=== PATIENT | male | born 1970 | race Two or more races ===

== ENCOUNTER 2020-06-12 08:25 | Outpatient (REF) | payer OTHER, SELFPAY ==
[2020-06-12 10:07] LABS: MANUAL DIFF FLAG NO
[2020-06-12 10:20] LABS: Basophils Percent Auto 0.3 % (0-2); Eosinophils Absolute Auto 0.2 X10*3/uL (0.0-0.4); Eosinophils Percent Auto 1.5 % (0-4); Hematocrit 44.4 % (42-52); Hemoglobin 14.5 g/dl (14.0-18.0); Imm Gran Abs Auto 0.04 X10*3/uL (0.00-0.03); Imm Gran Pct Auto 0.4 % (0.0-0.4); Lymphocytes Absolute Auto 2.4 X10*3/uL (1.2-4.9); Lymphocytes Percent Auto 23.9 % (20-40); Mean Corpuscular HGB Conc 32.7 g/dl (31.0-36.0); Mean Corpuscular Hemoglobin 30.5 pg (27.0-33.0); Mean Corpuscular Volume 93.3 fL (80-98); Mean Platelet Volume 11.4 fL (9.4-12.4); Monocytes Absolute Auto 0.6 X10*3/uL (0.1-1.2); Monocytes Percent Auto 5.9 % (2-11); Neutrophils Absolute Auto 6.7 X10*3/uL (2.0-8.3); Platelet Count 247 X10*3/uL (160-400); Red Blood Count 4.76 X10*6/uL (4.60-5.80); Red Cell Distribution Width 14.6 % (11.0-16.0); White Blood Count 9.9 X10*3/uL (4.8-10.8)
[2020-06-12 10:24] LABS: Estimated Average Glucose 120 mg/dL; Hemoglobin A1c % 5.8 %
[2020-06-12 10:47] LABS: Glucose Urine UA NEG (NEG); Leukocyte Esterase Urine NEG (NEG); Nitrite Urine NEG (NEG); Specific Gravity - Urine >= 1.030 (1.005-1.025); Urine Blood NEG (NEG); Urine Ketones NEG (NEG); Urine Protein NEG (NEG-TRACE)
[2020-06-12 10:49] LABS: Appearance Urine HAZY; Color Urine YELLOW
[2020-06-12 10:49] LABS: Alanine Aminotransferase 32 U/L (0-40); Albumin Level 4.1 g/dL (3.5-5.0); Alkaline Phosphatase 74 U/L (39-117); Anion Gap 14 (12-20); Aspartate Amino Transferase 28 U/L (5-37); Bilirubin Total 0.9 mg/dL (0.0-1.0); Blood Urea Nitrogen 11 mg/dL (9-16); Calcium 9.5 mg/dL (8.4-10.2); Carbon Dioxide 28 mmol/L (22-29); Chloride 105 mmol/L (96-108); Cholesterol 156 mg/dL; Estimated Glomerular Filt Rate > 60; Glucose Fasting 105 mg/dL (60-99); HDL Cholesterol 42 mg/dL; LDL Cholesterol Calculated 89 mg/dl; Potassium 4.4 mmol/L (3.3-5.1); Sodium 143 mmol/L (135-145); Total Protein 7.2 g/dL (6.5-8.0); Triglycerides 126 mg/dL
[2020-06-12 11:12] LABS: Free T4 (Free Thyroxine) 0.92 ng/dL (0.71-1.85); Thyroid Stimulating Hormone 3.27 uIU/mL (0.32-4.0); Vitamin D 25-OH Total 15.2 ng/mL (>30)
== END 2020-06-12 08:26 | disposition home or self-care (01) ==
LOC: HO.LAB 08:25
PROVIDERS: PCP Internal Medicine; Visit Provider Internal Medicine
DX: I10 Essential (primary) hypertension (principal); K21.9 Gastro-esophageal reflux disease without esophagitis; E66.01 Morbid (severe) obesity due to excess calories; Z68.41 Body mass index [BMI] 40.0-44.9, adult; R73.01 Impaired fasting glucose; E78.00 Pure hypercholesterolemia, unspecified; R79.89 Other specified abnormal findings of blood chemistry; E55.9 Vitamin D deficiency, unspecified
CPT/HCPCS: 36415; 80053; 80061; 81003; 82306; 83036; 84439; 84443; 85025

== ENCOUNTER 2020-09-05 06:09 | Emergency (ER) | payer OTHER, SELFPAY ==
--- NOTE | ~2020-09-05 | CT_ITS ---
EXAMINATION: CT HEAD WITHOUT CONTRAST CLINICAL INFORMATION: Dizziness COMPARISON: None TECHNIQUE: Contiguous axial imaging was performed from the skull base to vertex without intravenous administration of contrast. This CT examination was performed using dose optimization techniques as appropriate, variously including the following: *Automated exposure control *Adjustment of mA and/or kV according to patient size (this includes techniques or standardized protocols for targeted exams where dose is matched to indication/reason for exam; i.e. extremities or head) *Use of iterative reconstruction technique DLP: 880 mGy-cm FINDINGS: There is no evidence of acute intracranial hemorrhage or territorial infarction. No abnormal mass effect or midline shift is seen. Wan to white matter differentiation is well preserved. No extra-axial fluid collections are identified. The ventricles are normal in size. There is no abnormal attenuation within the brain parenchyma. The osseous structures and soft tissues are normal. The mastoid air cells and visualized portions of the paranasal sinuses are well aerated. CT/CT head/brain wo con IMPRESSION: No acute intracranial process seen.
--- NOTE | ~2020-09-05 | XR_ITS ---
EXAMINATION: XR CHEST CLINICAL INFORMATION: Dizziness. COMPARISON: 11/14/2012 TECHNIQUE: Frontal view of the chest was obtained. FINDINGS: Normal symmetric lung volumes. No parenchymal consolidation. No pleural effusion. No pneumothorax. Cardiomediastinal silhouette and pulmonary vascularity are within normal limits. Aorta is tortuous. No acute osseous abnormalities. XR/XR chest 1V IMPRESSION: No acute findings
[2020-09-05 06:13] VITALS: BP 209/130; BP 224/136; PULSE 70; PULSE 75; RESP 17; TEMP 36.6; O2SAT 97; O2SAT 99; BMI 43.5
--- NOTE | 2020-09-05 06:18 | ECG_ITS ---
Test Reason : HYPERTENSION Blood Pressure : / mmHG Vent. Rate : 069 BPM Atrial Rate : 069 BPM P-R Int : 154 ms QRS Dur : 104 ms QT Int : 438 ms P-R-T Axes : 035 -37 132 degrees QTc Int : 469 ms Normal sinus rhythm with sinus arrhythmia Left axis deviation Moderate voltage criteria for LVH, may be normal variant T wave abnormality, consider lateral ischemia Abnormal ECG No previous ECGs available Referred By: Danelle Palencia Electronically Signed By:MIRNA SR
[2020-09-05 06:39] LABS: MANUAL DIFF FLAG NO
[2020-09-05 06:42] LABS: Basophils Percent Auto 0.2 % (0-2); Eosinophils Absolute Auto 0.1 X10*3/uL (0.0-0.4); Eosinophils Percent Auto 0.9 % (0-4); Hematocrit 43.1 % (42-52); Hemoglobin 14.8 g/dl (14.0-18.0); Imm Gran Abs Auto 0.04 X10*3/uL (0.00-0.03); Imm Gran Pct Auto 0.4 % (0.0-0.4); Lymphocytes Absolute Auto 2.2 X10*3/uL (1.2-4.9); Lymphocytes Percent Auto 21.9 % (20-40); Mean Corpuscular HGB Conc 34.3 g/dl (31.0-36.0); Mean Corpuscular Hemoglobin 31.3 pg (27.0-33.0); Mean Corpuscular Volume 91.1 fL (80-98); Mean Platelet Volume 11.2 fL (9.4-12.4); Monocytes Absolute Auto 0.5 X10*3/uL (0.1-1.2); Monocytes Percent Auto 5.1 % (2-11); Neutrophils Absolute Auto 7.2 X10*3/uL (2.0-8.3); Neutrophils Percent Auto 71.5 % (45-73); Platelet Count 245 X10*3/uL (160-400); Red Blood Count 4.73 X10*6/uL (4.60-5.80); Red Cell Distribution Width 13.8 % (11.0-16.0); White Blood Count 10.1 X10*3/uL (4.8-10.8)
--- NOTE | 2020-09-05 06:47 | ED_ITS ---
HPI - General Adult General Chief complaint: General Medical Stated complaint: hypertension Time Seen by Provider: 09/05/20 06:17 Source: patient and EMS Mode of arrival: EMS History of Present Illness HPI narrative: This is a 49 years old male with history of hypertension woke up this morning complaining of dizziness denies any vomiting 88 hours of nausea and the dizziness is described as a spinning denies any chest pain, shortness of b reath, fever she has other systemic symptoms Onset (ago): hour(s) (1) Radiation: non-radiation Severity: moderate Severity scale (1-10): 5 Quality: constant Relieving factors: none Exacerbating factors: none Associated symptoms: denies other symptoms Related Data Previous Rx's Medication Instructions Recorded valsartan 320 1 tab PO DAILY #30 tab 12/13/19 mg-hydrochlorothiazide 12.5 mg tablet fluticasone propionate 50 1 spray INTRANASAL DAILY #16 ml 07/24/20 mcg/actuation nasal spray,suspension meclizine 25 mg tablet 25 mg PO TID PRN #15 tab 09/05/20 Allergies Allergy/AdvReac Type Severity Reaction Status Date / Time No Known Allergies Allergy Verified 01/23/20 10:40 Review of Systems Review of Systems: Yes all other systems are reviewed and are negative Constitutional: Constitutional: Reports no additional constitutional complaints Cardiovascular: Cardiovascular: Reports no additional cardiovascular complaints Respiratory: Respiratory: Reports no additional respiratory complaints PMFSH Past Medical History Medical History Allergic rhinitis Anxiety Attention deficit hyperactivity disorder (ADHD) Benign essential hypertension Depression Elevated LFTs Elevated TSH GERD without esophagitis Impaired fasting glucose Insomnia Morbid obesity with BMI of 40.0-44.9, adult Pure hypercholesterolemia Vitamin D deficiency Surgical History No pertinent past surgical history Family History Family History Father Hypertension CVD (cardiovascular disease) Mother Diabetes Brother No problems noted. Social History Social History Advance Directives: No Physical Exam Vital Signs: Vital Signs: Last Vital Signs Temp 97.9 F 09/05/20 06:13 Pulse 70 09/05/20 06:13 Resp 17 07/30/21 06:13 BP 178/97 H 09/05/20 11:58 Pulse Ox 97 09/05/20 06:13 Body Mass Index 43.5 Const: Other: He appears well no distress no toxic General: cooperative Nutritional Appearance: well nourished HENMT: Other: Examination of the eyes shows pupils reactive symmetrical no sked deviationdeviation Head: Yes normal to inspection Ears: hearing grossly normal bilaterally General nose exam: Normal external nose present Face and sinus: Yes normal facial exam Mouth: Normal oral and palatal mucosa present Teeth and gingiva: dentition normal Throat: Yes posterior oropharynx normal Eyes: Visual Aviles: normal visual aviles by confrontation Alignment and Position: alignment normal Eyelids: Yes eyelids normal Conjunctivae: conjunctivae normal Corneas: corneas normal Pupils: Equal, round and reactive pupils present EOM: EOMs intact bilaterally Neck: Neck: Yes normal visual inspection and Yes full ROM Thyroid: Thyroid normal Lymphatic: no lymphadenopathy noted Chest: Chest palpation & inspection: normal inspection of the chest and normal palpation of entire chest wall Resp: Effort & Inspection: normal respiratory effort and able to speak in complete sentences Auscultation: clear to auscultation bilaterally Cardio: Jugular venous distension: no JVD Palpation: normal PMI Rate: regular rate Rhythm: regular rhythm GI: Inspection: Yes normal to inspection Palpation (GI): Soft to palpation, not firm, nontender and no guarding Neuro: Cranial nerves: Yes Equal, round and reactive pupils present Course Reevaluation(s) Reevaluation #1: PATIENT IS FEELING MUCH BETTER HE WAS ABLE TO AMBULATE WITHOUT ATAXIA HIS DIZZINESS IS BETTER HIS WORKUP WAS ESSENTIALLY NEGATIVE INCLUDING HIS CT ELECTROCARDIOGRAM A LABS IS BLOOD PRESSURE IS MUCH BETTER AT THIS TIME WELL I THINK WE CAN GO HOME A E PATIENT THE FAMILY VERY COMFORTABLE WITH THE PLAN HE WILL FOLLOW-UP WITH HIS PRIMARY CARE PHYSICIAN Medical Decision Making Lab Data Result diagrams: 09/05/20 06:31 09/05/20 06:31 Labs: Lab Results 09/05/20 09/05/20 09/05/20 Range/Units 06:31 06:31 06:31 WBC 10.1 (4.8-10.8) X10*3/uL RBC 4.73 (4.60-5.80) X10*6/uL Hgb 14.8 (14.0-18.0) g/dl Hct 43.1 (42-52) % MCV 91.1 (80-98) fL MCH 31.3 (27.0-33.0) pg MCHC 34.3 (31.0-36.0) g/dl RDW 13.8 (11.0-16.0) % Plt Count 245 (160-400) X10*3/uL MPV 11.2 (9.4-12.4) fL Immature Gran % (Auto) 0.4 (0.0-0.4) % Neut % (Auto) 71.5 (45-73) % Lymph % (Auto) 21.9 (20-40) % Morehouse % (Auto) 5.1 (2-11) % Eos % (Auto) 0.9 (0-4) % Baso % (Auto) 0.2 (0-2) % Lymph # (Auto) 2.2 (1.2-4.9) X10*3/uL Morehouse # (Auto) 0.5 (0.1-1.2) X10*3/uL Eos # (Auto) 0.1 (0.0-0.4) X10*3/uL Baso # (Auto) 0.0 (0.0-0.2) X10*3/uL Abs Immat Gran (auto) 0.04 H (0.00-0.03) X10*3/uL Absolute Neuts (auto) 7.2 (2.0-8.3) X10*3/uL Absolute Nucleated RBC 0.000 (0.0-0.012) X10*3/uL Nucleated RBC % (auto) 0.0 (0.0-0.2) /100WBC PT 12.8 (9.9-13.0) SEC INR 1.1 (0.9-1.1) Sodium 141 (135-145) mmol/L Potassium 3.7 (3.3-5.1) mmol/L Chloride 109 H (96-108) mmol/L Carbon Dioxide 22 (22-29) mmol/L Anion Gap 14 (12-20) BUN 11 (9-16) mg/dL Creatinine 1.15 (0.5-1.4) mg/dL Estim Creat Clear Calc 94.8 Estimated GFR > 60 Random Glucose 179 H (60-115) mg/dL Calcium 9.0 (8.4-10.2) mg/dL Magnesium 1.9 (1.6-2.6) mg/dL Total Bilirubin 0.6 (0.0-1.0) mg/dL AST 25 (5-37) U/L ALT 32 (0-40) U/L Alkaline Phosphatase 70 (39-117) U/L Troponin I High Sens (<3.5-35.0) ng/L Total Protein 7.3 (6.5-8.0) g/dL Albumin 3.9 (3.5-5.0) g/dL Lipase 18 (8-78) U/L Ethyl Alcohol mg/dL 09/05/20 09/05/20 Range/Units 06:31 06:31 WBC (4.8-10.8) X10*3/uL RBC (4.60-5.80) X10*6/uL Hgb (14.0-18.0) g/dl Hct (42-52) % MCV (80-98) fL MCH (27.0-33.0) pg MCHC (31.0-36.0) g/dl RDW (11.0-16.0) % Plt Count (160-400) X10*3/uL MPV (9.4-12.4) fL Immature Gran % (Auto) (0.0-0.4) % Neut % (Auto) (45-73) % Lymph % (Auto) (20-40) % Morehouse % (Auto) (2-11) % Eos % (Auto) (0-4) % Baso % (Auto) (0-2) % Lymph # (Auto) (1.2-4.9) X10*3/uL Morehouse # (Auto) (0.1-1.2) X10*3/uL Eos # (Auto) (0.0-0.4) X10*3/uL Baso # (Auto) (0.0-0.2) X10*3/uL Abs Immat Gran (auto) (0.00-0.03) X10*3/uL Absolute Neuts (auto) (2.0-8.3) X10*3/uL Absolute Nucleated RBC (0.0-0.012) X10*3/uL Nucleated RBC % (auto) (0.0-0.2) /100WBC PT (9.9-13.0) SEC INR (0.9-1.1) Sodium (135-145) mmol/L Potassium (3.3-5.1) mmol/L Chloride (96-108) mmol/L Carbon Dioxide (22-29) mmol/L Anion Gap (12-20) BUN (9-16) mg/dL Creatinine (0.5-1.4) mg/dL Estim Creat Clear Calc Estimated GFR Random Glucose (60-115) mg/dL Calcium (8.4-10.2) mg/dL Magnesium (1.6-2.6) mg/dL Total Bilirubin (0.0-1.0) mg/dL AST (5-37) U/L ALT (0-40) U/L Alkaline Phosphatase (39-117) U/L Troponin I High Sens 4.9 (<3.5-35.0) ng/L Total Protein (6.5-8.0) g/dL Albumin (3.5-5.0) g/dL Lipase (8-78) U/L Ethyl Alcohol < 10 mg/dL Imaging Data CT scan - head: Radiologist's impression: None TECHNIQUE: Contiguous axial imaging was performed from the skull base to vertex without intravenous administration of contrast. This CT examination was performed using dose optimization techniques as appropriate, variously including the following: *Automated exposure control *Adjustment of mA and/or kV according to patient size (this includes techniques or standardized protocols for targeted exams where dose is matched to indication/reason for exam; i.e. extremities or head) *Use of iterative reconstruction technique DLP: 880 mGy-cm FINDINGS: There is no evidence of acute intracranial hemorrhage or territorial infarction. No abnormal mass effect or midline shift is seen. Wan to white matter differentiation is well preserved. No extra-axial fluid collections are identified. The ventricles are normal in size. There is no abnormal attenuation within the brain parenchyma. The osseous structures and soft tissues are normal. The mastoid air cells and visualized portions of the paranasal sinuses are well aerated. ? ECG Data Pacemaker model: Normal sinus rhythm rate is 69, LVH Discharge Plan Discharge Clinical Impression: Dizziness Patient Disposition: Home, Self-Care Instructions: Dizziness (ED) Prescriptions: New meclizine 25 mg tablet 25 mg PO TID PRN (Reason: dizziness) Qty: 15 RF: 0 No Action valsartan-hydrochlorothiazide 320-12.5 mg tablet 1 tab PO DAILY Qty: 30 RF: 12 fluticasone propionate 50 mcg/actuation spray,suspension 1 spray intranasal DAILY Qty: 16 RF: 3 Interventions: ED Discharge Assessment Last Done: 09/05/20 12:05 Discharge Date/Time: 09/05/20 12:07
[2020-09-05 06:59] LABS: INTERNATIONAL NORM RATIO 1.1 (0.9-1.1); Prothrombin Time 12.8 SEC (9.9-13.0)
[2020-09-05 07:00] LABS: Ethanol < 10 mg/dL
[2020-09-05 07:04] LABS: Alanine Aminotransferase 32 U/L (0-40); Albumin Level 3.9 g/dL (3.5-5.0); Alkaline Phosphatase 70 U/L (39-117); Anion Gap 14 (12-20); Aspartate Amino Transferase 25 U/L (5-37); Bilirubin Total 0.6 mg/dL (0.0-1.0); Blood Urea Nitrogen 11 mg/dL (9-16); Carbon Dioxide 22 mmol/L (22-29); Chloride 109 mmol/L (96-108); Creatinine Clr Calc Pharmacy 94.8; Estimated Glomerular Filt Rate > 60; Glucose Random 179 mg/dL (60-115); Lipase 18 U/L (8-78); Magnesium 1.9 mg/dL (1.6-2.6); Potassium 3.7 mmol/L (3.3-5.1); Sodium 141 mmol/L (135-145); Total Protein 7.3 g/dL (6.5-8.0)
[2020-09-05 07:07] LABS: Troponin-I High Sensitivity 4.9 ng/L (<3.5-35.0)
--- NOTE | 2020-09-05 07:38 | PC.NURSE ---
report taken from kosta rn pt here for s/s of htn, sts feeling much better at this time. blood pressures appear much lower than on first arrival. pt sts non compliance w htn meds of late. awaiting ct scan results. wctm.
[2020-09-05] MEDS: LORazepam 1 MG TABLET PO (08:00)
[2020-09-05] MEDS: Meclizine HCl 25 MG TABLET PO (11:24)
[2020-09-05 11:58] VITALS: BP 178/97
== END 2020-09-05 12:07 | disposition home or self-care (01) ==
PROVIDERS: Student in an Organized Health Care Education/Training Program; Emergency Provider Emergency Medicine; PCP Internal Medicine
DX: R42 Dizziness and giddiness (principal); I10 Essential (primary) hypertension; E66.01 Morbid (severe) obesity due to excess calories; Z68.41 Body mass index [BMI] 40.0-44.9, adult; Z79.899 Other long term (current) drug therapy
CPT/HCPCS: 36415; 70450; 71045; 80053; 82077; 83690; 83735; 84484; 85025; 85610; 93005; 99283; 99284

== ENCOUNTER 2021-02-04 08:45 | Outpatient (REF) | payer OTHER, SELFPAY ==
[2021-02-04 09:06] LABS: MANUAL DIFF FLAG NO
[2021-02-04 09:14] LABS: Basophils Percent Auto 0.2 % (0-2); Eosinophils Absolute Auto 0.1 X10*3/uL (0.0-0.4); Eosinophils Percent Auto 1.2 % (0-4); Hematocrit 44.1 % (42.0-52.0); Hemoglobin 14.8 g/dl (14.0-18.0); Imm Gran Abs Auto 0.01 X10*3/uL (0.00-0.03); Imm Gran Pct Auto 0.1 % (0.0-0.4); Lymphocytes Absolute Auto 2.7 X10*3/uL (1.2-4.9); Mean Corpuscular HGB Conc 33.6 g/dl (31.0-36.0); Mean Corpuscular Hemoglobin 31.4 pg (27.0-33.0); Mean Corpuscular Volume 93.6 fL (80.0-98.0); Mean Platelet Volume 10.8 fL (9.4-12.4); Monocytes Absolute Auto 0.6 X10*3/uL (0.1-1.2); Monocytes Percent Auto 6.7 % (2-11); Neutrophils Absolute Auto 5.9 x10*3/uL (2.0-8.3); Neutrophils Percent Auto 62.8 % (45-73); Platelet Count 252 X10*3/uL (160-400); Red Blood Count 4.71 X10*6/uL (4.60-5.80); Red Cell Distribution Width 14.3 % (11.0-16.0); White Blood Count 9.4 X10*3/uL (4.8-10.8)
[2021-02-04 09:25] LABS: Estimated Average Glucose 123 mg/dL; Hemoglobin A1c % 5.9 %
[2021-02-04 09:43] LABS: Alanine Aminotransferase 40 U/L (0-40); Alkaline Phosphatase 75 U/L (39-117); Anion Gap 9 (12-20); Aspartate Amino Transferase 30 U/L (5-37); Bilirubin Total 0.8 mg/dL (0.0-1.0); Blood Urea Nitrogen 12 mg/dL (9-16); Calcium 9.9 mg/dL (8.4-10.2); Carbon Dioxide 32 mmol/L (22-29); Chloride 105 mmol/L (96-108); Cholesterol 131 mg/dL; Estimated Glomerular Filt Rate > 60; Glucose Fasting 115 mg/dL (60-99); HDL Cholesterol 35 mg/dL; LDL Cholesterol Calculated 75 mg/dl; Potassium 4.3 mmol/L (3.3-5.1); Sodium 142 mmol/L (135-145); Total Protein 7.6 g/dL (6.5-8.0); Triglycerides 108 mg/dL
[2021-02-04 09:58] LABS: TSH reflex Free T4 4.67 uIU/mL (0.32-4.0); Vitamin D 25-OH Total 28.9 ng/mL (>30)
[2021-02-04 10:32] LABS: Free T4 (Free Thyroxine) 0.95 ng/dL (0.71-1.85)
[2021-02-04 10:57] LABS: Appearance Urine CLEAR; Color Urine YELLOW; Glucose Urine UA NEG (NEG); Leukocyte Esterase Urine NEG (NEG); Nitrite Urine NEG (NEG); PH 5.5 (5.0-8.0); Specific Gravity - Urine >= 1.030 (1.005-1.025); Urine Blood NEG (NEG); Urine Ketones NEG (NEG); Urine Protein NEG (NEG-TRACE)
== END 2021-02-04 08:46 | disposition home or self-care (01) ==
LOC: HO.LAB 08:45
PROVIDERS: PCP Internal Medicine; Visit Provider Internal Medicine
DX: E78.00 Pure hypercholesterolemia, unspecified (principal); R79.89 Other specified abnormal findings of blood chemistry; R73.01 Impaired fasting glucose; I10 Essential (primary) hypertension; E55.9 Vitamin D deficiency, unspecified
CPT/HCPCS: 36415; 80053; 80061; 81003; 82306; 83036; 84439; 84443; 85025

== ENCOUNTER 2021-05-19 10:13 | Outpatient (REF) | payer OTHER, SELFPAY ==
[2021-05-19 10:34] LABS: MANUAL DIFF FLAG NO
[2021-05-19 11:52] LABS: Appearance Urine CLEAR; Color Urine YELLOW; Glucose Urine UA NEG (NEG); Leukocyte Esterase Urine NEG (NEG); Nitrite Urine NEG (NEG); PH 5.5 (5.0-8.0); Specific Gravity - Urine >= 1.030 (1.005-1.025); Urine Blood NEG (NEG); Urine Ketones NEG (NEG); Urine Protein NEG (NEG-TRACE)
[2021-05-19 11:55] LABS: Basophils Percent Auto 0.2 % (0-2); Eosinophils Absolute Auto 0.1 X10*3/uL (0.0-0.4); Eosinophils Percent Auto 1.3 % (0-4); Hematocrit 41.2 % (42.0-52.0); Hemoglobin 13.7 g/dl (14.0-18.0); Imm Gran Abs Auto 0.03 X10*3/uL (0.00-0.03); Imm Gran Pct Auto 0.3 % (0.0-0.4); Lymphocytes Absolute Auto 2.5 X10*3/uL (1.2-4.9); Lymphocytes Percent Auto 25.9 % (20-40); Mean Corpuscular HGB Conc 33.3 g/dl (31.0-36.0); Mean Corpuscular Hemoglobin 30.9 pg (27.0-33.0); Mean Platelet Volume 11.4 fL (9.4-12.4); Monocytes Absolute Auto 0.6 X10*3/uL (0.1-1.2); Neutrophils Absolute Auto 6.3 x10*3/uL (2.0-8.3); Neutrophils Percent Auto 66.3 % (45-73); Platelet Count 219 X10*3/uL (160-400); Red Blood Count 4.43 X10*6/uL (4.60-5.80); Red Cell Distribution Width 14.4 % (11.0-16.0); White Blood Count 9.5 X10*3/uL (4.8-10.8)
[2021-05-19 12:16] LABS: Estimated Average Glucose 123 mg/dL; Hemoglobin A1C 149.9489 umol/L; Hemoglobin A1c % 5.9 %
[2021-05-19 12:25] LABS: Alanine Aminotransferase 40 U/L (0-40); Alkaline Phosphatase 70 U/L (39-117); Anion Gap 13 (12-20); Aspartate Amino Transferase 27 U/L (5-37); Bilirubin Total 0.9 mg/dL (0.0-1.0); Blood Urea Nitrogen 13 mg/dL (9-16); Calcium 9.4 mg/dL (8.4-10.2); Carbon Dioxide 27 mmol/L (22-29); Chloride 103 mmol/L (96-108); Cholesterol 139 mg/dL; Estimated Glomerular Filt Rate > 60; Glucose Fasting 102 mg/dL (60-99); HDL Cholesterol 36 mg/dL; LDL Cholesterol Calculated 81 mg/dl; Potassium 4.1 mmol/L (3.3-5.1); Sodium 139 mmol/L (135-145); Total Protein 7.2 g/dL (6.5-8.0); Triglycerides 113 mg/dL
[2021-05-19 12:46] LABS: TSH reflex Free T4 5.03 uIU/mL (0.32-4.0); Vitamin D 25-OH Total 31.9 ng/mL (>30)
== END 2021-05-19 10:14 | disposition home or self-care (01) ==
LOC: HO.LAB 10:13
PROVIDERS: PCP Internal Medicine; Visit Provider Internal Medicine
DX: I10 Essential (primary) hypertension (principal); E78.00 Pure hypercholesterolemia, unspecified; R73.01 Impaired fasting glucose; E55.9 Vitamin D deficiency, unspecified
CPT/HCPCS: 36415; 80053; 80061; 81003; 82306; 83036; 84439; 84443; 85025

== ENCOUNTER 2021-05-27 09:48 | Outpatient (REF) | payer OTHER, SELFPAY ==
--- NOTE | ~2021-05-27 | XR_ITS ---
EXAMINATION: XR LUMBAR SPINE XR HIP, RIGHT CLINICAL INFORMATION: Low back and hip pain. COMPARISON: None TECHNIQUE: Three-view lumbar spine. Two-view right hip. FINDINGS: LUMBAR SPINE: There are 5 yrz-had-mfuypst lumbar vertebra. No acute fracture or spondylolysis is identified. There is a minimal grade 1 spondylolisthesis at L2-L3. Marginal spurring is seen at multiple levels. No significant disc space narrowing is evident. There is noted to be anterior bridging of the T10 and T11 vertebral bodies. There is question of some fusion about the inferior aspects of the sacroiliac joints bilaterally. There is noted to be degenerative spurring about the superolateral acetabulum on the left. There is bilateral facet arthropathy seen L4 through S1. Pedicles are intact. RIGHT HIP: Two views of the right hip do not demonstrate any evidence of acute fracture or dislocation. There is prominent spurring seen about the superior acetabulum and a region of the labrum. There is also spurring about the greater trochanter as well as other regions of enthesopathy about the pelvis. XR/XR hip RT min 2V IMPRESSION: RIGHT HIP: Changes of enthesopathy about the pelvis as described. No acute fracture or dislocation of the right hip. LUMBAR SPINE: No acute fracture or spondylolysis of the lumbar spine identified. Bilateral facet arthropathy L4 through S1.
--- NOTE | ~2021-05-27 | XR_ITS ---
EXAMINATION: XR LUMBAR SPINE XR HIP, RIGHT CLINICAL INFORMATION: Low back and hip pain. COMPARISON: None TECHNIQUE: Three-view lumbar spine. Two-view right hip. FINDINGS: LUMBAR SPINE: There are 5 oer-das-rnafvre lumbar vertebra. No acute fracture or spondylolysis is identified. There is a minimal grade 1 spondylolisthesis at L2-L3. Marginal spurring is seen at multiple levels. No significant disc space narrowing is evident. There is noted to be anterior bridging of the T10 and T11 vertebral bodies. There is question of some fusion about the inferior aspects of the sacroiliac joints bilaterally. There is noted to be degenerative spurring about the superolateral acetabulum on the left. There is bilateral facet arthropathy seen L4 through S1. Pedicles are intact. RIGHT HIP: Two views of the right hip do not demonstrate any evidence of acute fracture or dislocation. There is prominent spurring seen about the superior acetabulum and a region of the labrum. There is also spurring about the greater trochanter as well as other regions of enthesopathy about the pelvis. XR/XR lumbar spine 2-3V IMPRESSION: RIGHT HIP: Changes of enthesopathy about the pelvis as described. No acute fracture or dislocation of the right hip. LUMBAR SPINE: No acute fracture or spondylolysis of the lumbar spine identified. Bilateral facet arthropathy L4 through S1.
== END 2021-05-27 09:49 | disposition home or self-care (01) ==
LOC: HO.XRAY 09:48
PROVIDERS: PCP Internal Medicine; Visit Provider Internal Medicine
DX: M54.50 Low back pain, unspecified (principal); M25.551 Pain in right hip; R10.9 Unspecified abdominal pain
CPT/HCPCS: 72100; 73502

== ENCOUNTER 2021-09-22 10:24 | Outpatient (REF) | payer OTHER, SELFPAY ==
[2021-09-22 10:42] LABS: MANUAL DIFF FLAG NO
[2021-09-22 10:45] LABS: Basophils Percent Auto 0.2 % (0-2); Eosinophils Absolute Auto 0.1 X10*3/uL (0.0-0.4); Eosinophils Percent Auto 1.3 % (0-4); Hematocrit 40.8 % (42.0-52.0); Hemoglobin 13.8 g/dl (14.0-18.0); Imm Gran Abs Auto 0.03 X10*3/uL (0.00-0.03); Imm Gran Pct Auto 0.3 % (0.0-0.4); Lymphocytes Absolute Auto 2.5 X10*3/uL (1.2-4.9); Lymphocytes Percent Auto 25.1 % (20-40); Mean Corpuscular HGB Conc 33.8 g/dl (31.0-36.0); Mean Corpuscular Hemoglobin 30.9 pg (27.0-33.0); Mean Corpuscular Volume 91.5 fL (80.0-98.0); Mean Platelet Volume 10.8 fL (9.4-12.4); Monocytes Absolute Auto 0.5 X10*3/uL (0.1-1.2); Monocytes Percent Auto 5.1 % (2-11); Neutrophils Absolute Auto 6.7 x10*3/uL (2.0-8.3); Platelet Count 231 X10*3/uL (160-400); Red Blood Count 4.46 X10*6/uL (4.60-5.80); Red Cell Distribution Width 14.2 % (11.0-16.0); White Blood Count 9.8 X10*3/uL (4.8-10.8)
[2021-09-22 10:58] LABS: Estimated Average Glucose 128 mg/dL; Hemoglobin A1c % 6.1 %
[2021-09-22 11:18] LABS: Alanine Aminotransferase 37 U/L (0-40); Alkaline Phosphatase 77 U/L (39-117); Anion Gap 15 (12-20); Aspartate Amino Transferase 28 U/L (5-37); Bilirubin Total 0.6 mg/dL (0.0-1.0); Blood Urea Nitrogen 8 mg/dL (9-16); Calcium 8.9 mg/dL (8.4-10.2); Carbon Dioxide 28 mmol/L (22-29); Chloride 103 mmol/L (96-108); Cholesterol 130 mg/dL; Estimated Glomerular Filt Rate > 60; Glucose Fasting 117 mg/dL (60-99); HDL Cholesterol 40 mg/dL; LDL Cholesterol Calculated 73 mg/dl; Potassium 4.1 mmol/L (3.3-5.1); Sodium 142 mmol/L (135-145); Total Protein 7.1 g/dL (6.5-8.0); Triglycerides 89 mg/dL
[2021-09-22 11:40] LABS: TSH reflex Free T4 3.63 uIU/mL (0.32-4.0); Vitamin D 25-OH Total 31.1 ng/mL (>30)
[2021-09-22 11:54] LABS: Appearance Urine Clear; Color Urine Dark Yellow; Glucose Urine UA Negative (Negative); Leukocyte Esterase Urine Negative (Negative); Nitrite Urine Negative (Negative); PH 5.5 (5.0-8.0); Specific Gravity - Urine 1.025 (1.005-1.025); Urine Blood Negative (Negative); Urine Ketones Trace mg/dL (Negative); Urine Protein Negative (Neg-Trace)
== END 2021-09-22 10:25 | disposition home or self-care (01) ==
LOC: HO.LAB 10:24
PROVIDERS: PCP Internal Medicine; Visit Provider Internal Medicine
DX: E55.9 Vitamin D deficiency, unspecified (principal); I10 Essential (primary) hypertension; E78.00 Pure hypercholesterolemia, unspecified; R73.01 Impaired fasting glucose
CPT/HCPCS: 36415; 80053; 80061; 81003; 82306; 83036; 84443; 85025

== ENCOUNTER 2021-09-24 18:47 | Emergency (ER) | payer OTHER, SELFPAY ==
--- NOTE | 2021-09-24 | ECG_ITS ---
Test Reason : dizzyness Blood Pressure : / mmHG Vent. Rate : 066 BPM Atrial Rate : 066 BPM P-R Int : 152 ms QRS Dur : 106 ms QT Int : 432 ms P-R-T Axes : 029 -37 026 degrees QTc Int : 452 ms Normal sinus rhythm Left axis deviation Moderate voltage criteria for LVH, may be normal variant ( R in aVL , Rey product ) Abnormal ECG When compared with ECG of 05-SEP-2020 06:18, T wave inversion no longer evident in Lateral leads Referred By: Generic ED Physician Electronically Signed By:TITO MARTINEZ
[2021-09-24 18:55] VITALS: BP 154/99; PULSE 67; RESP 20; TEMP 36.8; O2SAT 96; BMI 48.4
[2021-09-24 20:26] LABS: MANUAL DIFF FLAG NO
[2021-09-24 20:35] LABS: Basophils Percent Auto 0.3 % (0-2); Eosinophils Absolute Auto 0.1 X10*3/uL (0.0-0.4); Eosinophils Percent Auto 0.7 % (0-4); Hemoglobin 14.5 g/dl (14.0-18.0); Imm Gran Abs Auto 0.04 X10*3/uL (0.00-0.03); Imm Gran Pct Auto 0.4 % (0.0-0.4); Lymphocytes Percent Auto 18.1 % (20-40); Mean Corpuscular HGB Conc 34.5 g/dl (31.0-36.0); Mean Corpuscular Hemoglobin 31.5 pg (27.0-33.0); Mean Corpuscular Volume 91.1 fL (80.0-98.0); Mean Platelet Volume 11.1 fL (9.4-12.4); Monocytes Absolute Auto 0.6 X10*3/uL (0.1-1.2); Monocytes Percent Auto 5.7 % (2-11); Neutrophils Absolute Auto 8.4 x10*3/uL (2.0-8.3); Neutrophils Percent Auto 74.8 % (45-73); Platelet Count 260 X10*3/uL (160-400); Red Blood Count 4.61 X10*6/uL (4.60-5.80); Red Cell Distribution Width 14.4 % (11.0-16.0); White Blood Count 11.3 X10*3/uL (4.8-10.8)
[2021-09-24 20:45] LABS: COVID-19 Test Negative (Negative)
[2021-09-24 21:02] LABS: Anion Gap 16 (12-20); Blood Urea Nitrogen 11 mg/dL (9-16); Calcium 9.6 mg/dL (8.4-10.2); Carbon Dioxide 28 mmol/L (22-29); Chloride 103 mmol/L (96-108); Creatinine Clr Calc Pharmacy 103.2; Estimated Glomerular Filt Rate > 60; Glucose Random 146 mg/dL (60-115); Potassium 4.3 mmol/L (3.3-5.1); Sodium 143 mmol/L (135-145)
--- NOTE | 2021-09-24 21:46 | ED.GENADULT ---
HPI - General Adult General Chief complaint: Dizziness Stated complaint: DIZZY Time Seen by Provider: 09/24/21 21:41 Source: patient Limitations: no limitations History of Present Illness HPI narrative: This is a 50-year-old male with history of hypertension, who complains of vertigo which came on this afternoon. The patient states the symptoms are worse when he turns his head, primarily to the left. Has had similar symptoms in the past but not as severe. In the past he had a lasted about 2 weeks. Patient denies any ear pain or tinnitus. Denies any chest pain or shortness of breath. He denies any headache. Did have nausea and vomiting earlier when the symptoms 1st came on. In the past when he had the vertigo he had attributed it to being off his blood pressure medicine, but he has been taking it. Patient also has history of anxiety, insomnia, ADHD, morbid obesity hypercholesterolemia. Related Data Previous Rx's Medication Instructions Recorded meclizine 25 mg tablet 25 mg PO TID PRN for dizziness #90 09/26/20 tabs valsartan 320 1 tab PO DAILY #30 tabs 12/20/20 mg-hydrochlorothiazide 12.5 mg tablet fluticasone propionate 50 1 spray intranasal DAILY #16 mL 04/28/21 mcg/actuation nasal spray,suspension cholecalciferol (vitamin D3) 50 50 mcg PO DAILY #90 caps 05/11/21 mcg (2,000 unit) capsule hydralazine 25 mg tablet 25 mg PO BID 90 days #180 tabs 05/26/21 amlodipine 2.5 mg tablet 2.5 mg PO DAILY 30 days #30 tabs 07/07/21 meloxicam 15 mg tablet 15 mg PO DAILY PRN pain 30 days 09/17/21 #30 tabs atorvastatin 40 mg tablet 40 mg PO DAILY 90 days #90 tabs 09/20/21 meclizine 25 mg tablet 25 mg PO TID #30 tabs 09/24/21 Allergies Allergy/AdvReac Type Severity Reaction Status Date / Time No Known Allergies Allergy Verified 09/24/21 18:55 Review of Systems Review of Systems: Yes all other systems are reviewed and are negative Constitutional: Constitutional: Reports as per HPI and Denies fever(s) Eyes: Eyes: Reports as per HPI and Reports no additional eye complaints ENT: Reports system reviewed and no additional complaints, except as documented, Reports as per HPI, Reports Normal hearing present, Reports vertigo, Denies nasal congestion, Denies nasal discharge and Denies sore throat Cardiovascular: Cardiovascular: Reports as per HPI, Denies chest pain and Denies dyspnea Respiratory: Respiratory: Reports as per HPI, Denies cough and Denies dyspnea Gastrointestinal: Gastrointestinal: Reports as per HPI, Denies abdominal pain, Denies diarrhea, Reports nausea and Reports vomiting Genitourinary: Genitourinary: Reports as per HPI, Denies hematuria, Denies dysuria and Denies urinary frequency Musculoskeletal: Musculoskeletal: Reports no additional musculoskeletal complaints and Denies numbness Integumentary/Breasts: Skin/Breast: Reports as per HPI and Denies rash Neurologic: Reports as per HPI, Reports Normal hearing present, Reports vertigo, Denies focal weakness and Denies numbness Psychiatric: Psychiatric: Reports no additional psychiatric complaints and Reports as per HPI Endocrine: Endocrine: Reports no additional endocrine complaints and Reports as per HPI Hematologic/Lymphatic: Hematologic/Lymphatic: Reports no additional hematologic/lymphatic complaints, Reports as per HPI and Reports other (No peripheral edema) [facility] Past Medical History Medical History Allergic rhinitis Anxiety Attention deficit hyperactivity disorder (ADHD) Benign essential hypertension Depression Dizziness Elevated LFTs Elevated TSH GERD without esophagitis Impaired fasting glucose Insomnia Morbid obesity with BMI of 40.0-44.9, adult Pure hypercholesterolemia Vitamin D deficiency Surgical History No pertinent past surgical history Family History Family History Father Hypertension CVD (cardiovascular disease) Mother Diabetes Brother No problems noted. Other Mental health problem Social History Social History Housing: Apartment Alcohol intake: former Patient Tobacco Use Status: Never used Tobacco Second Hand Smoke Exposure: Yes Advance Directives: No Advance Directives Information Provided: No service: No Current occupational status: disabled Cognitive needs: No Hearing needs: No Vision needs: No Physical Exam ED Vital Signs: Vital Signs - 24 hr 09/24/21 18:55 09/24/21 21:53 Temperature 98.2 F 98.3 F Pulse Rate 67 79 Respiratory Rate 20 20 Blood Pressure 154/99 H 148/93 H Pulse Oximetry 96 96 Oxygen Delivery Method Room Air Room Air BMI result Body Mass Index 48.4 Const General: no acute distress Orientation/consciousness: patient oriented x3 HENMT Head: Yes normal to inspection Ears: external ears normal and TM's normal bilaterally General nose exam: Normal external nose present Mouth: moist mucous membranes Throat: Yes posterior oropharynx normal, Yes tonsils normal and Yes uvula midline Eyes Eyelids: Yes eyelids normal Conjunctivae: conjunctivae normal Pupils: Equal, round and reactive pupils present Neck Neck: Yes supple Resp Effort & Inspection: normal respiratory effort Auscultation: clear to auscultation bilaterally Cardio Rate: regular rate Rhythm: regular rhythm Heart sounds: S1 normal heart sound present, S2 normal heart sound present, no gallops, no murmurs and no rubs GI Inspection: No distended Palpation (GI): Soft to palpation and nontender Auscultation: normal bowel sounds Skin General skin exam: other (Warm and dry) Neuro Other: No visible nystagmus even with eliciting symptoms by turning the patient's head. General: patient oriented x3 and CN's II-XI intact bilaterally Cranial nerves: Yes Equal, round and reactive pupils present and Yes Normal hearing present Extrem General: Yes no pedal edema Psych Affect: normal affect Attitude: cooperative Medical Decision Making [facility] Narrative Medical decision making narrative: Patient with a prior history of vertigo, had acute onset of vertigo today. No headache, limited vomiting. Symptoms worse turning to the left. Neurologic exam otherwise unremarkable. No observed nystagmus. This is likely benign positional vertigo. Patient had improvement with Antivert and lorazepam. Will prescribe Antivert, also recommend the patient perform the Preet maneuver. Labs and EKG unremarkable. Patient has moderate hypertension but not to the extent that should be causing any symptoms Lab Data Result diagrams: 09/24/21 20:21 09/24/21 20:21 Labs: Lab Results 09/24/21 09/24/21 09/24/21 Range/Units 20:21 20:21 20:21 WBC 11.3 H (4.8-10.8) X10*3/uL RBC 4.61 (4.60-5.80) X10*6/uL Hgb 14.5 (14.0-18.0) g/dl Hct 42.0 (42.0-52.0) % MCV 91.1 (80.0-98.0) fL MCH 31.5 (27.0-33.0) pg MCHC 34.5 (31.0-36.0) g/dl RDW 14.4 (11.0-16.0) % Plt Count 260 (160-400) X10*3/uL MPV 11.1 (9.4-12.4) fL Immature Gran % (Auto) 0.4 (0.0-0.4) % Neut % (Auto) 74.8 H (45-73) % Lymph % (Auto) 18.1 L (20-40) % Esmeralda % (Auto) 5.7 (2-11) % Eos % (Auto) 0.7 (0-4) % Baso % (Auto) 0.3 (0-2) % Lymph # (Auto) 2.0 (1.2-4.9) X10*3/uL Esmeralda # (Auto) 0.6 (0.1-1.2) X10*3/uL Eos # (Auto) 0.1 (0.0-0.4) X10*3/uL Baso # (Auto) 0.0 (0.0-0.2) X10*3/uL Abs Immat Gran (auto) 0.04 H (0.00-0.03) X10*3/uL Absolute Neuts (auto) 8.4 H (2.0-8.3) x10*3/uL Absolute Nucleated RBC 0.000 (0.0-0.012) X10*3/uL Nucleated RBC % (auto) 0.0 (0.0-0.2) /100WBC Sodium 143 (135-145) mmol/L Potassium 4.3 (3.3-5.1) mmol/L Chloride 103 (96-108) mmol/L Carbon Dioxide 28 (22-29) mmol/L Anion Gap 16 (12-20) BUN 11 (9-16) mg/dL Creatinine 1.11 (0.5-1.4) mg/dL Estim Creat Clear Calc 103.2 Estimated GFR > 60 Random Glucose 146 H (60-115) mg/dL Calcium 9.6 D (8.4-10.2) mg/dL COVID-19 (TREVA) Negative (Negative) COVID-19 Clin Com See Note ECG Data Interpretation: Sinus rhythm with a rate of 66. No ST elevation depression. Left axis deviation. LVH. Discharge Plan Discharge Clinical Impression: Benign positional vertigo Patient Disposition: Home, Self-Care Instructions: Benign Paroxysmal Positional Vertigo (ED) Additional Instructions: Take the meclizine as prescribed. Follow up with her primary care physician. Return for any new or worsened symptoms. Look up the Preet maneuver on YouTube and followed the directions on how to go through this urge to physicians, which can help improve your vertigo. Prescriptions: New meclizine 25 mg tablet 25 mg PO TID Qty: 30 0RF No Action meclizine 25 mg tablet 25 mg PO TID PRN (Reason: for dizziness) Qty: 90 0RF valsartan-hydrochlorothiazide 320-12.5 mg tablet 1 tab PO DAILY Qty: 30 12RF fluticasone propionate 50 mcg/actuation spray,suspension 1 spray intranasal DAILY Qty: 16 3RF cholecalciferol (vitamin D3) 50 mcg (2,000 unit) capsule 50 mcg PO DAILY Qty: 90 1RF Rx Instructions: 1 capsule Orally Once a day amlodipine 2.5 mg tablet 2.5 mg PO DAILY 30 Days Qty: 30 3RF meloxicam 15 mg tablet 15 mg PO DAILY PRN (Reason: pain) 30 Days Qty: 30 0RF Rx Instructions: Take with food atorvastatin 40 mg tablet 40 mg PO DAILY 90 Days Qty: 90 1RF hydralazine 25 mg tablet 25 mg PO BID 90 Days Qty: 180 1RF
[2021-09-24 21:53] VITALS: BP 148/93; PULSE 79; RESP 20; TEMP 36.8; O2SAT 96
[2021-09-24] MEDS: LORazepam 1 MG TABLET PO (22:07)
[2021-09-24] MEDS: Meclizine HCl 25 MG TABLET 50 MG PO (22:07)
== END 2021-09-24 23:32 | disposition home or self-care (01) ==
PROVIDERS: Emergency Provider Emergency Medicine; PCP Internal Medicine
DX: H81.10 Benign paroxysmal vertigo, unspecified ear (principal); Z20.822 Contact with and (suspected) exposure to COVID-19; I10 Essential (primary) hypertension; E78.00 Pure hypercholesterolemia, unspecified; Z79.02 Long term (current) use of antithrombotics/antiplatelets; E66.01 Morbid (severe) obesity due to excess calories; Z68.42 Body mass index [BMI] 45.0-49.9, adult
CPT/HCPCS: 36415; 80048; 85025; 87635; 93005; 99283

== ENCOUNTER 2022-01-04 08:49 | Outpatient (REF) | payer OTHER, SELFPAY ==
[2022-01-04 09:03] LABS: MANUAL DIFF FLAG NO
[2022-01-04 10:10] LABS: Basophils Percent Auto 0.2 % (0-2); Eosinophils Absolute Auto 0.1 X10*3/uL (0.0-0.4); Eosinophils Percent Auto 1.7 % (0-4); Hematocrit 44.1 % (42.0-52.0); Hemoglobin 14.6 g/dl (14.0-18.0); Imm Gran Abs Auto 0.03 X10*3/uL (0.00-0.03); Imm Gran Pct Auto 0.4 % (0.0-0.4); Lymphocytes Absolute Auto 2.2 X10*3/uL (1.2-4.9); Lymphocytes Percent Auto 27.5 % (20-40); Mean Corpuscular HGB Conc 33.1 g/dl (31.0-36.0); Mean Corpuscular Hemoglobin 30.4 pg (27.0-33.0); Mean Corpuscular Volume 91.9 fL (80.0-98.0); Mean Platelet Volume 11.2 fL (9.4-12.4); Monocytes Absolute Auto 0.6 X10*3/uL (0.1-1.2); Monocytes Percent Auto 7.4 % (2-11); Neutrophils Absolute Auto 5.1 x10*3/uL (2.0-8.3); Neutrophils Percent Auto 62.8 % (45-73); Platelet Count 258 X10*3/uL (160-400); Red Cell Distribution Width 14.1 % (11.0-16.0); White Blood Count 8.1 X10*3/uL (4.8-10.8)
[2022-01-04 10:13] LABS: Appearance Urine Clear; Color Urine Dark Yellow; Glucose Urine UA Negative (Negative); Leukocyte Esterase Urine Trace (Negative); Nitrite Urine Negative (Negative); Specific Gravity - Urine >= 1.030 (1.005-1.025); UMIC TRIGGER UACC YES; Urine Blood Negative (Negative); Urine Ketones Trace mg/dL (Negative); Urine Protein Negative (Neg-Trace)
[2022-01-04 10:18] LABS: Bacteria Urine None Seen (None Seen); RBC Urine 0-2 /HPF (0-2); Squamous Epithelial Cell Urine 0-2 /HPF (0-2); WBC Urine 0-5 /HPF (0-5)
[2022-01-04 10:44] LABS: Alanine Aminotransferase 42 U/L (0-40); Alkaline Phosphatase 66 U/L (39-117); Anion Gap 15 (12-20); Aspartate Amino Transferase 31 U/L (5-37); Bilirubin Total 0.7 mg/dL (0.0-1.0); Blood Urea Nitrogen 14 mg/dL (9-16); Calcium 9.3 mg/dL (8.4-10.2); Carbon Dioxide 23 mmol/L (22-29); Chloride 106 mmol/L (96-108); Cholesterol 195 mg/dL; Estimated Glomerular Filt Rate > 60; Glucose Fasting 93 mg/dL (60-99); HDL Cholesterol 37 mg/dL; LDL Cholesterol Calculated 125 mg/dl; Sodium 140 mmol/L (135-145); Total Protein 7.1 g/dL (6.5-8.0); Triglycerides 167 mg/dL
[2022-01-04 10:54] LABS: TSH reflex Free T4 4.29 uIU/mL (0.32-4.0); Vitamin D 25-OH Total 27.3 ng/mL (>30)
[2022-01-04 11:27] LABS: Free T4 (Free Thyroxine) 0.98 ng/dL (0.71-1.85)
== END 2022-01-04 08:50 | disposition home or self-care (01) ==
LOC: HO.LAB 08:49
PROVIDERS: PCP Internal Medicine; Visit Provider Internal Medicine
DX: I10 Essential (primary) hypertension (principal); E55.9 Vitamin D deficiency, unspecified; E78.00 Pure hypercholesterolemia, unspecified
CPT/HCPCS: 36415; 80053; 80061; 81001; 81003; 82306; 84439; 84443; 85025

== ENCOUNTER 2022-04-19 09:25 | Outpatient (REF) | payer OTHER, SELFPAY ==
[2022-04-19 09:46] LABS: MANUAL DIFF FLAG NO
[2022-04-19 09:55] LABS: Basophils Percent Auto 0.2 % (0-2); Eosinophils Absolute Auto 0.1 X10*3/uL (0.0-0.4); Eosinophils Percent Auto 1.4 % (0-4); Hematocrit 46.7 % (42.0-52.0); Hemoglobin 15.6 g/dl (14.0-18.0); Imm Gran Abs Auto 0.03 X10*3/uL (0.00-0.03); Imm Gran Pct Auto 0.3 % (0.0-0.4); Lymphocytes Absolute Auto 2.2 X10*3/uL (1.2-4.9); Lymphocytes Percent Auto 22.7 % (20-40); Mean Corpuscular HGB Conc 33.4 g/dl (31.0-36.0); Mean Corpuscular Hemoglobin 30.2 pg (27.0-33.0); Mean Corpuscular Volume 90.5 fL (80.0-98.0); Mean Platelet Volume 11.5 fL (9.4-12.4); Monocytes Absolute Auto 0.6 X10*3/uL (0.1-1.2); Monocytes Percent Auto 5.9 % (2-11); Neutrophils Absolute Auto 6.6 x10*3/uL (2.0-8.3); Neutrophils Percent Auto 69.5 % (45-73); Platelet Count 203 X10*3/uL (160-400); Red Blood Count 5.16 X10*6/uL (4.60-5.80); Red Cell Distribution Width 13.8 % (11.0-16.0); White Blood Count 9.5 X10*3/uL (4.8-10.8)
[2022-04-19 10:21] LABS: Estimated Average Glucose 120 mg/dL; Hemoglobin A1c % 5.8 %
[2022-04-19 11:18] LABS: Appearance Urine Clear; Color Urine Dark Yellow; Glucose Urine UA Negative (Negative); Leukocyte Esterase Urine Negative (Negative); Nitrite Urine Negative (Negative); Specific Gravity - Urine 1.025 (1.005-1.025); Urine Blood Negative (Negative); Urine Ketones Trace mg/dL (Negative); Urine Protein Negative (Neg-Trace)
[2022-04-19 11:58] LABS: Alanine Aminotransferase 33 U/L (0-40); Albumin Level 4.1 g/dL (3.5-5.0); Alkaline Phosphatase 73 U/L (39-117); Anion Gap 12 (12-20); Aspartate Amino Transferase 26 U/L (5-37); Bilirubin Total 0.9 mg/dL (0.0-1.0); Blood Urea Nitrogen 15 mg/dL (9-16); Calcium 9.3 mg/dL (8.4-10.2); Carbon Dioxide 30 mmol/L (22-29); Chloride 106 mmol/L (96-108); Cholesterol 147 mg/dL; Estimated Glomerular Filt Rate > 60; Glucose Fasting 106 mg/dL (60-99); HDL Cholesterol 38 mg/dL; LDL Cholesterol Calculated 79 mg/dl; Potassium 4.5 mmol/L (3.3-5.1); Sodium 143 mmol/L (135-145); Total Protein 7.2 g/dL (6.5-8.0); Triglycerides 152 mg/dL
[2022-04-19 12:00] LABS: Free T4 (Free Thyroxine) 0.86 ng/dL (0.71-1.85); Thyroid Stimulating Hormone 6.66 uIU/mL (0.32-4.0); Vitamin D 25-OH Total 24.6 ng/mL (>30)
== END 2022-04-19 09:26 | disposition home or self-care (01) ==
LOC: HO.LAB 09:25
PROVIDERS: PCP Internal Medicine; Visit Provider Internal Medicine
DX: R30.0 Dysuria (principal); R79.89 Other specified abnormal findings of blood chemistry; E78.00 Pure hypercholesterolemia, unspecified; R73.01 Impaired fasting glucose; E55.9 Vitamin D deficiency, unspecified; I10 Essential (primary) hypertension
CPT/HCPCS: 36415; 80053; 80061; 81003; 82306; 83036; 84439; 84443; 85025

== ENCOUNTER 2022-06-18 22:35 | Emergency (ER) | payer OTHER, SELFPAY ==
--- NOTE | 2022-06-18 | ECG_ITS ---
Test Reason : dizness Blood Pressure : / mmHG Vent. Rate : 080 BPM Atrial Rate : 080 BPM P-R Int : 150 ms QRS Dur : 100 ms QT Int : 384 ms P-R-T Axes : 032 -48 -03 degrees QTc Int : 442 ms Normal sinus rhythm Left anterior fascicular block Moderate voltage criteria for LVH, may be normal variant ( R in aVL , Rey product ) Abnormal ECG When compared with ECG of 24-SEP-2021 19:11, No significant change was found Referred By: Angelo López Electronically Signed By:MIRNA SR
--- NOTE | ~2022-06-18 | CT_ITS ---
EXAMINATION: CT HEAD WITHOUT CONTRAST CLINICAL INFORMATION: Altered mental status COMPARISON: 09/05/2020 TECHNIQUE: Contiguous axial imaging was performed from the skull base to vertex without intravenous administration of contrast. This CT examination was performed using dose optimization techniques as appropriate, variously including the following: *Automated exposure control *Adjustment of mA and/or kV according to patient size (this includes techniques or standardized protocols for targeted exams where dose is matched to indication/reason for exam; i.e. extremities or head) *Use of iterative reconstruction technique DLP: 768 mGy-cm FINDINGS: There is no evidence of acute intracranial hemorrhage or territorial infarction. No abnormal mass-effect or midline shift is seen. Wan to white matter differentiation is well preserved. No extra-axial fluid collections are identified. The ventricles are normal in size. There is no abnormal attenuation within the brain parenchyma. The osseous structures and soft tissues are normal. The mastoid air cells and visualized portions of the paranasal sinuses are well-aerated. CT/CT head/brain wo IV con IMPRESSION: No acute intracranial pathology.
[2022-06-18 22:46] VITALS: BP 132/89; PULSE 85; RESP 18; TEMP 36.6; O2SAT 96; BMI 48.4
[2022-06-18 23:12] LABS: Basophils Percent Auto 0.3 % (0-2); Eosinophils Absolute Auto 0.2 X10*3/uL (0.0-0.4); Eosinophils Percent Auto 1.9 % (0-4); Hematocrit 45.2 % (42.0-52.0); Hemoglobin 15.3 g/dl (14.0-18.0); Imm Gran Abs Auto 0.02 X10*3/uL (0.00-0.03); Imm Gran Pct Auto 0.2 % (0.0-0.4); Lymphocytes Absolute Auto 2.5 X10*3/uL (1.2-4.9); Lymphocytes Percent Auto 25.5 % (20-40); Mean Corpuscular HGB Conc 33.8 g/dl (31.0-36.0); Mean Corpuscular Hemoglobin 30.4 pg (27.0-33.0); Mean Corpuscular Volume 89.9 fL (80.0-98.0); Mean Platelet Volume 11.3 fL (9.4-12.4); Monocytes Absolute Auto 0.6 X10*3/uL (0.1-1.2); Neutrophils Absolute Auto 6.5 x10*3/uL (2.0-8.3); Neutrophils Percent Auto 66.1 % (45-73); Platelet Count 226 X10*3/uL (160-400); Red Blood Count 5.03 X10*6/uL (4.60-5.80); Red Cell Distribution Width 14.6 % (11.0-16.0); White Blood Count 9.8 X10*3/uL (4.8-10.8)
[2022-06-18 23:13] LABS: MANUAL DIFF FLAG NO
[2022-06-18 23:36] LABS: Alanine Aminotransferase 35 U/L (0-40); Albumin Level 4.1 g/dL (3.5-5.0); Alkaline Phosphatase 86 U/L (39-117); Anion Gap 11 (12-20); Aspartate Amino Transferase 28 U/L (5-37); Bilirubin Total 0.6 mg/dL (0.0-1.0); Blood Urea Nitrogen 14 mg/dL (9-16); Calcium 9.8 mg/dL (8.4-10.2); Carbon Dioxide 30 mmol/L (22-29); Chloride 108 mmol/L (96-108); Creatinine Clr Calc Pharmacy 85.8; Estimated Glomerular Filt Rate 57; Glucose Random 100 mg/dL (60-115); Potassium 4.3 mmol/L (3.3-5.1); Sodium 145 mmol/L (135-145); Total Protein 7.4 g/dL (6.5-8.0)
[2022-06-18 23:44] VITALS: BP 146/94; PULSE 83; RESP 16; TEMP 36.7; O2SAT 96
--- NOTE | 2022-06-19 01:22 | ED.DIZZY ---
HPI - Dizziness General Chief Complaint: Dizziness Stated Complaint: Dizzy spells Time Seen by Provider: 06/19/22 00:04 History of Present Illness HPI Narrative: Patient is a 51-year-old male with a history of benign paroxysmal vertigo in the past. Presents today with the same. Patient claims he has sudden onset of spinning sensation that was extreme. Lasting a few minutes. Usually triggered by change in movement. There is no fever no chills. No nausea no vomiting. Patient has been having the symptoms for 2 years. Been on Ativan. This symptom has since subsided once patient arrived. Denies any neck pain. Denies any focal weakness. Denies any trauma. Denies any ringing in the ear. History of anxiety. History of insomnia. History of depression. ADHD. Related Data Previous Rx's Medication Instructions Recorded valsartan 320 1 tab PO DAILY #90 tabs 12/20/21 mg-hydrochlorothiazide 12.5 mg tablet fluticasone propionate 50 1 spray intranasal DAILY #16 mL 12/23/21 mcg/actuation nasal spray,suspension atorvastatin 40 mg tablet 40 mg PO DAILY 90 days #90 tabs 01/13/22 cholecalciferol (vitamin D3) 50 50 mcg PO DAILY #90 caps 03/04/22 mcg (2,000 unit) capsule amlodipine 2.5 mg tablet 2.5 mg PO DAILY 90 days #90 tabs 04/23/22 hydralazine 25 mg tablet 25 mg PO BID 90 days #180 tabs 04/23/22 meclizine 25 mg tablet 25 mg PO TID PRN for dizziness #90 04/27/22 tabs meloxicam 15 mg tablet 15 mg PO DAILY PRN pain 30 days 06/16/22 #30 tabs Allergies Allergy/AdvReac Type Severity Reaction Status Date / Time No Known Allergies Allergy Verified 06/18/22 22:52 Review of Systems Review of Systems: No fever no chills no diaphoresis Yes all other systems are reviewed and are negative [facility] Past Medical History Attestation statement: The following information was validated with the patient. Medical History Allergic rhinitis Anxiety Attention deficit hyperactivity disorder (ADHD) Benign essential hypertension Depression Dizziness Elevated LFTs Elevated TSH GERD without esophagitis Impaired fasting glucose Insomnia Morbid obesity with BMI of 40.0-44.9, adult Pure hypercholesterolemia Vitamin D deficiency Surgical History No pertinent past surgical history Family History Family History Father Hypertension CVD (cardiovascular disease) Mother Diabetes Brother No problems noted. Other Mental health problem Social History Social History Housing: Apartment Alcohol intake: current Alcohol intake frequency: holidays/special occasions only Patient Tobacco Use Status: Never used Tobacco Smoked in Last 30 Days: No e-Cigarette/Vaping Use: Never Used Second Hand Smoke Exposure: Yes Use of substances other than those prescribed or required for medical reasons: No Advance Directives: No Advance Directives Information Provided: No service: No Current occupational status: disabled Cognitive needs: No Hearing needs: No Vision needs: No Physical Exam Vital Signs: Vital Signs: Last Vital Signs Temp 98.2 F 06/19/22 02:00 Pulse 66 06/19/22 02:00 Resp 16 06/19/22 02:00 BP 137/85 06/19/22 02:00 Pulse Ox 97 06/19/22 02:00 O2 Del Method Room Air 06/19/22 02:00 BMI result Body Mass Index 48.4 Appearance: Alert. Oriented X3. No acute distress. Eyes: Pupils equal, round and reactive to light. ENT: Pharynx normal. Neck: Normal inspection. Neck supple. No lymph nodes noted. No crepitus CVS: Normal heart rate and rhythm. Pulses normal. Normal S1 and S2 Respiratory: No respiratory distress. Breath sounds normal. No Wheezing. No rales Abdomen: Soft and nontender. No rigidity. No distention. good BS x4 Skin: Skin warm and dry. Normal skin color. Normal skin turgor. Extremities: No lower extremity edema. Neurovascular intact to all extremities. No Lacerations. No Rash Neuro: Oriented X 3. No motor deficit. No sensory deficit. Moving all extermities. No slurred speech. Cranial nerves 2-12 intact. Rapid alternating movement intact. Symptoms not reproducible with movement Medical Decision Making Medical Decision Making MDM Narrative: History of vertigo. Patient symptoms very abrupt in onset very similar to previous bout. Has gone away. CT scan of the head was negative. Electrolytes unremarkable. Neurologically intact nonfocal. Will discharge patient home. Joint decision was made to have patient follow-up on an outpatient basis. In stable condition. Urologically patient is intact. Nonfocal. The symptoms are very extreme very sudden onset suggestive for peripheral. Symptom has been ongoing patient has had these episodes from time to time the last 2 years. Unlikely to be secondary malignancy. CT scan showed no evidence of bleeding. Will discharge home Differential Diagnosis Central causes of vertigo. Peripheral causes of vertigo Lab Data MDM Lab Attestation statement: I reviewed the patient's lab results. 06/18/22 23:08 06/18/22 23:08 Labs: Lab Results 06/18/22 06/18/22 Range/Units 23:08 23:08 WBC 9.8 (4.8-10.8) X10*3/uL RBC 5.03 (4.60-5.80) X10*6/uL Hgb 15.3 (14.0-18.0) g/dl Hct 45.2 (42.0-52.0) % MCV 89.9 (80.0-98.0) fL MCH 30.4 (27.0-33.0) pg MCHC 33.8 (31.0-36.0) g/dl RDW 14.6 (11.0-16.0) % Plt Count 226 (160-400) X10*3/uL MPV 11.3 (9.4-12.4) fL Immature Gran % (Auto) 0.2 (0.0-0.4) % Neut % (Auto) 66.1 (45-73) % Lymph % (Auto) 25.5 (20-40) % Owen % (Auto) 6.0 (2-11) % Eos % (Auto) 1.9 (0-4) % Baso % (Auto) 0.3 (0-2) % Lymph # (Auto) 2.5 (1.2-4.9) X10*3/uL Owen # (Auto) 0.6 (0.1-1.2) X10*3/uL Eos # (Auto) 0.2 (0.0-0.4) X10*3/uL Baso # (Auto) 0.0 (0.0-0.2) X10*3/uL Abs Immat Gran (auto) 0.02 (0.00-0.03) X10*3/uL Absolute Neuts (auto) 6.5 (2.0-8.3) x10*3/uL Absolute Nucleated RBC 0.000 (0.0-0.012) X10*3/uL Nucleated RBC % (auto) 0.0 (0.0-0.2) /100WBC Sodium 145 (135-145) mmol/L Potassium 4.3 (3.3-5.1) mmol/L Chloride 108 (96-108) mmol/L Carbon Dioxide 30 H (22-29) mmol/L Anion Gap 11 L (12-20) BUN 14 (9-16) mg/dL Creatinine 1.32 (0.5-1.4) mg/dL Estim Creat Clear Calc 85.8 Estimated GFR 57 Random Glucose 100 (60-115) mg/dL Calcium 9.8 (8.4-10.2) mg/dL Total Bilirubin 0.6 (0.0-1.0) mg/dL AST 28 (5-37) U/L ALT 35 (0-40) U/L Alkaline Phosphatase 86 (39-117) U/L Total Protein 7.4 (6.5-8.0) g/dL Albumin 4.1 (3.5-5.0) g/dL Chronic Conditions Anxiety, depression, ADHD Discharge Plan Discharge Clinical Impression: Anxiety, Benign paroxysmal vertigo Patient Disposition: Home, Self-Care Instructions: Benign Paroxysmal Positional Vertigo (ED) Prescriptions: No Action valsartan-hydrochlorothiazide 320-12.5 mg tablet 1 tab PO DAILY Qty: 90 4RF fluticasone propionate 50 mcg/actuation spray,suspension 1 spray intranasal DAILY Qty: 16 3RF cholecalciferol (vitamin D3) 50 mcg (2,000 unit) capsule 50 mcg PO DAILY Qty: 90 1RF Rx Instructions: 1 capsule Orally Once a day meclizine 25 mg tablet 25 mg PO TID PRN (Reason: for dizziness) Qty: 90 0RF meloxicam 15 mg tablet 15 mg PO DAILY PRN (Reason: pain) 30 Days Qty: 30 0RF Rx Instructions: Take with food atorvastatin 40 mg tablet 40 mg PO DAILY 90 Days Qty: 90 1RF amlodipine 2.5 mg tablet 2.5 mg PO DAILY 90 Days Qty: 90 1RF hydralazine 25 mg tablet 25 mg PO BID 90 Days Qty: 180 1RF Referrals: Ольга Samuel MD [Physician] -
--- NOTE | 2022-06-19 01:34 | PC.NURSE ---
Pt walked to CT with steady gait and no dizziness. Pt resting comfortably in bed at this time, waiting CT results.
[2022-06-19 02:00] VITALS: BP 137/85; PULSE 66; RESP 16; TEMP 36.8; O2SAT 97
== END 2022-06-19 03:16 | disposition home or self-care (01) ==
PROVIDERS: Emergency Provider Emergency Medicine Emergency Medical Services; PCP Internal Medicine
DX: F41.9 Anxiety disorder, unspecified (principal); H81.10 Benign paroxysmal vertigo, unspecified ear; Z79.899 Other long term (current) drug therapy
CPT/HCPCS: 36415; 70450; 80053; 85025; 93005; 99284; 99285

== ENCOUNTER 2022-06-23 14:14 | Outpatient (AMB) | payer OTHER, SELFPAY ==
[2022-06-23 14:29] VITALS: BP 132/80; PULSE 68; O2SAT 98; BMI 43.9
--- NOTE | 2022-06-23 14:29 | A.OFFPC_ITS ---
Vital Signs 06/23/22 14:29 Height 5 ft 6 in Weight 272 lb 4 oz BMI 43.9 BP 132/80 Blood Pressure Location Lt brachial Position Sitting Pulse 68 Pulse Source Pulse Oximeter Pulse Oximetry (%) 98 Oxygen Delivery Method Room Air Intake Visit Reasons: ED [facility] [place] 06/19/22-Dizziness Allergies No Known Allergies Allergy (Verified 11/29/22 14:38) Medication List - Last Reconciled 06/23/22 by Angelo López MD amlodipine 2.5 mg PO DAILY 90 days atorvastatin 40 mg PO DAILY 90 days cholecalciferol (vitamin D3) 50 mcg PO DAILY fluticasone propionate 50 mcg/actuation 1 spray intranasal DAILY hydralazine 25 mg PO BID 90 days meclizine 25 mg PO TID PRN meloxicam 15 mg PO DAILY PRN 30 days valsartan-hydrochlorothiazide 320-12.5 mg 1 tab PO DAILY Tobacco use date assessed: 04/23/22 HPI ED [facility] [place] 06/19/22-Dizziness HPI Details Patient comes in today for his HDF follow up visit He went to the ER a few days ago for sudden onset of vertigo but this time felt that it was more severe than his previous episodes Describes his symptoms again as a sensation that everything is spinning around him and that his symptoms are often triggered or made worse by movements or changes in position Work ups done in the ER all came back normal and as he still had some Meclizine tablets at home, was advised to continue on Meclizine PRN and follow up with his PCP [facility] States that he is still experiencing recurrent bouts of vertigo although staying still and moving slowly seems to keep his symptoms from increasing He denies any headaches Denies any chest pains, no SOB No nausea/vomiting, no abdominal pain No change in bowel habits noted [facility] Medical History (Updated 03/16/23 @ 17:38 by Angelo López MD) Obesity (BMI 30-39.9) Dizziness Depression Anxiety Insomnia Attention deficit hyperactivity disorder (ADHD) Allergic rhinitis Morbid obesity with BMI of 40.0-44.9, adult Elevated TSH GERD without esophagitis Impaired fasting glucose Elevated LFTs Pure hypercholesterolemia Benign essential hypertension Vitamin D deficiency Surgical History No pertinent past surgical history Family History Father Hypertension CVD (cardiovascular disease) Mother Diabetes Brother No problems noted. Other Mental health problem Social History Housing: Apartment Alcohol intake: current Alcohol intake frequency: holidays/special occasions only Patient Tobacco Use Status: Never used Tobacco e-Cigarette/Vaping Use: Never Used Second Hand Smoke Exposure: Yes service: No Current occupational status: disabled Cognitive needs: No Hearing needs: No Vision needs: No Questionnaire PHQ-9 Over the last 2 weeks, how often have you been bothered by any of the following problems? 1. Little interest or pleasure in doing things: several days 2. Feeling down, depressed, or hopeless: several days 3. Trouble falling or staying asleep, or sleeping too much: several days 4. Feeling tired or having little energy: several days 5. Poor appetite or overeating: several days 6. Feeling bad about yourself - or that you are a failure or have let yourself or your family down: not at all 7. Trouble concentrating on things, such as reading the newspaper or watching television: not at all 8. Moving or speaking so slowly that other people could have noticed. Or the opposite - being so fidgety or restless that you have been moving around a lot more than usual: not at all 9. Thoughts that you would be better off or of hurting yourself in some way: not at all Total score: 5 Depression Screening Interpretation: Positive Depression Screening Follow-up: Existing condition and In treatment 41588 - PHQ-9 Billing: Yes Source: Developed by Drs. Ramón Alcala, Bernadette Bourgeois, Jd Mullins and colleagues, with an educational robel from [employer]. Thrive Questionnaire Date Thrive assessed: 06/23/22 I am a: Patient What is your living situation today?: I have a steady place to live Within the past 12 months, did the food you bought not last and you didn't have the money to get more?: Never true Within the past 12 months, did you worry whether your food would run out before you got money to buy more?: Never true Currently or been in a relationship where the following occur: no concerns reported AUDIT C Alcohol Use Questionnaire (AUDIT-C) 1. How often do you have a drink containing alcohol?: Never 3. How often do you have six or more drinks on one occasion?: Never Total Score: 0 Score Reviewed/Action Taken: Yes RONIT-7 AMB Questionnaire RONIT-7 Date RONIT - 7 assessed: 06/23/22 Feeling nervous, anxious, or on edge: 0 = Not at all Not being able to stop or control worryin = Not at all Worrying too much about different things: 0 = Not at all Trouble relaxin = Not at all Being so restless that it is hard to sit still: 0 = Not at all Becoming easily annoyed or irritable: 0 = Not at all Feeling afraid as if something awful might happen: 0 = Not at all Total RONIT-7 score (0-4 normal; 5-9 mild; 10-14 moderate; 15-21 severe): 0 Source: Developed by Drs. Ramón Alcala, Bernadette Bourgeois, Jd Mullins and colleagues, with an educational robel from [employer]. Review of Systems Const Denies fatigue, Denies fever(s) and Denies headache(s) ENT Denies dysphagia, Reports vertigo (see HPI), Reports dizziness (on and off), Denies otalgia, Denies headache(s), Denies neck pain, Denies odynophagia and Denies sore throat Card Denies chest pain, Denies palpitations and Denies dyspnea Resp Denies cough and Denies dyspnea GI Denies abdominal pain, Denies constipation, Denies dysphagia, Denies heartburn, Denies diarrhea, Denies nausea, Denies odynophagia and Denies vomiting Denies dysuria, Denies nocturia and Denies urinary frequency Musc Denies back pain and Denies neck pain Skin/Breast Denies rash Neuro Reports vertigo (see HPI), Reports dizziness (on and off) and Denies headache(s) Endo Denies fatigue and Denies palpitations Physical exam (Primary Care) Vital Signs: Last Vital Signs Pulse 68 06/23/22 14:29 BP 132/80 06/23/22 14:29 Pulse Ox 98 06/23/22 14:29 Oxygen Delivery Method Room Air 06/23/22 14:29 BMI result Body Mass Index 43.9 Tobacco/Smoking Status: Tobacco use Status Tobacco use date assessed 04/23/22 06/23/22 14:34 Patient Tobacco Use Status Never used Tobacco 06/23/22 14:34 e-Cigarette/Vaping Use Never Used 06/23/22 14:34 PHQ-9: PHQ-9 Score PHQ-9: Total score 5 06/23/22 15:32 Depression Screening Interpretation: Positive Depression Screening Follow-up: Existing condition and In treatment Thrive Assessment: Date of Thrive Assessment Date Thrive assessed 06/23/22 06/23/22 14:34 Currently or been in a relationship where the following occur: no concerns reported Const General: no acute distress and alert HENMT Ears: TM's normal bilaterally and EAC's normal Throat: Yes posterior oropharynx normal and Yes tonsils normal (no TP congestion) Eyes Conjunctivae: conjunctivae normal Pupils: Equal, round and reactive pupils present EOM: EOMs intact bilaterally and No Nystagmus present Neck Neck: Yes no lymphadenopathy and Yes supple Resp Auscultation: clear to auscultation bilaterally, no rales and no wheezes Cardio Rate: regular rate Rhythm: regular rhythm Heart sounds: no murmurs GI Palpation (GI): Soft to palpation and nontender Auscultation: normal bowel sounds Skin Rashes: no rashes Neuro Cranial nerves: Yes Equal, round and reactive pupils present and No Nystagmus present Extrem General: Yes no clubbing, cyanosis or edema Assessment and Plan Assessment & Plan (1) Benign paroxysmal vertigo: Code(s): H81.10 - Benign paroxysmal vertigo, unspecified ear Qualifiers: Laterality: unspecified laterality Qualified Code(s): H81.10 - Benign paroxysmal vertigo, unspecified ear Plan: Will refer patient to physical therapy [facility] for canalith positioning Per request, will also refer him to neurology for further evaluation and management of his recurrent vertigo, which he feels is happening too often Will continue him for now on Meclizine 25 mg TID PRN although advised that Meclizine may not really help much with symptoms of vertigo Plan Follow up as scheduled in August 2022 Orders: Orders PT Evaluation and Treatment 06/23/22 H81.10 - Benign paroxysmal vertigo, unspecified ear Referrals Neurology Referral H81.10 - Benign paroxysmal vertigo, unspecified ear Medications: Refilled meclizine 25 mg PO TID PRN 90 tabs 0RF for dizziness R42 - Dizziness and giddiness Coding Level of Care Code Est Pt Level 3 (03520) Diagnoses Benign paroxysmal vertigo, unspecified laterality H81.10 Laterality: unspecified laterality
== END 2022-06-23 15:36 | disposition home or self-care (01) ==
PROVIDERS: PCP Internal Medicine; Visit Provider Internal Medicine
DX: H81.10 Benign paroxysmal vertigo, unspecified ear (principal)
CPT/HCPCS: 99213

== ENCOUNTER 2022-11-25 09:24 | Outpatient (REF) | payer OTHER, SELFPAY ==
[2022-11-25 09:49] LABS: MANUAL DIFF FLAG NO
[2022-11-25 10:51] LABS: Basophils Percent Auto 0.2 % (0-2); Eosinophils Absolute Auto 0.1 X10*3/uL (0.0-0.4); Eosinophils Percent Auto 1.3 % (0-4); Hematocrit 43.3 % (42.0-52.0); Hemoglobin 14.6 g/dl (14.0-18.0); Imm Gran Abs Auto 0.02 X10*3/uL (0.00-0.03); Imm Gran Pct Auto 0.2 % (0.0-0.4); Lymphocytes Absolute Auto 2.6 X10*3/uL (1.2-4.9); Lymphocytes Percent Auto 31.8 % (20-40); Mean Corpuscular HGB Conc 33.7 g/dl (31.0-36.0); Mean Corpuscular Hemoglobin 31.3 pg (27.0-33.0); Mean Corpuscular Volume 92.7 fL (80.0-98.0); Mean Platelet Volume 11.9 fL (9.4-12.4); Monocytes Absolute Auto 0.6 X10*3/uL (0.1-1.2); Monocytes Percent Auto 6.8 % (2-11); Neutrophils Absolute Auto 4.9 x10*3/uL (2.0-8.3); Neutrophils Percent Auto 59.7 % (45-73); Platelet Count 231 X10*3/uL (160-400); Red Blood Count 4.67 X10*6/uL (4.60-5.80); Red Cell Distribution Width 13.5 % (11.0-16.0); White Blood Count 8.3 X10*3/uL (4.8-10.8)
[2022-11-25 11:00] LABS: Estimated Average Glucose 97 mg/dL
[2022-11-25 11:07] LABS: Appearance Urine Clear; Color Urine Yellow; Glucose Urine UA Negative (Negative); Leukocyte Esterase Urine Negative (Negative); Nitrite Urine Negative (Negative); PH 5.5 (5.0-9.0); Specific Gravity - Urine 1.015 (1.005-1.025); Urine Blood Negative (Negative); Urine Ketones Negative (Negative); Urine Protein Negative (Neg-Trace)
[2022-11-25 11:53] LABS: Alanine Aminotransferase 29 U/L (0-40); Alkaline Phosphatase 65 U/L (39-117); Anion Gap 13 (12-20); Aspartate Amino Transferase 25 U/L (5-37); Bilirubin Total 0.9 mg/dL (0.0-1.0); Blood Urea Nitrogen 13 mg/dL (9-16); Calcium 9.7 mg/dL (8.4-10.2); Carbon Dioxide 27 mmol/L (22-29); Chloride 104 mmol/L (96-108); Cholesterol 117 mg/dL (<200); Estimated Glomerular Filt Rate > 60; Glucose Fasting 86 mg/dL (60-99); HDL Cholesterol 32 mg/dL (>40); LDL Cholesterol Calculated 64 mg/dL (<100); Potassium 3.9 mmol/L (3.3-5.1); Sodium 140 mmol/L (135-145); Total Protein 7.2 g/dL (6.5-8.0); Triglycerides 109 mg/dL (<150)
[2022-11-25 12:19] LABS: Free T4 (Free Thyroxine) 0.92 ng/dL (0.71-1.85); Thyroid Stimulating Hormone 4.65 uIU/mL (0.32-4.0); Vitamin D 25-OH Total 32.9 ng/mL (>30)
== END 2022-11-25 09:25 | disposition home or self-care (01) ==
LOC: HO.LAB 09:24
PROVIDERS: PCP Internal Medicine; Visit Provider Internal Medicine
DX: E55.9 Vitamin D deficiency, unspecified (principal); I10 Essential (primary) hypertension; E03.9 Hypothyroidism, unspecified; R79.89 Other specified abnormal findings of blood chemistry; R73.01 Impaired fasting glucose; R30.0 Dysuria; E78.00 Pure hypercholesterolemia, unspecified
CPT/HCPCS: 36415; 80053; 80061; 81003; 82306; 83036; 84439; 84443; 85025

== ENCOUNTER 2022-11-29 14:06 | Outpatient (AMB) | payer OTHER, SELFPAY ==
[2022-11-29 14:08] VITALS: BP 122/78; PULSE 57; O2SAT 99; BMI 39.7
--- NOTE | 2022-11-29 14:08 | A.OFFPC_ITS ---
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 Required: No Accompanied by: Self / Same As Patient Allergies No Known Allergies Allergy (Verified 11/29/22 14:38) Medication List - Last Reconciled 11/29/22 by Angelo López MD amlodipine 2.5 mg PO DAILY 90 days atorvastatin 40 mg PO DAILY 90 days cholecalciferol (vitamin D3) 50 mcg PO DAILY fluticasone propionate 50 mcg/actuation 1 spray intranasal DAILY hydralazine 25 mg PO BID 90 days meclizine 25 mg PO TID PRN meloxicam 15 mg PO DAILY PRN 30 days valsartan-hydrochlorothiazide 320-12.5 mg 1 tab PO DAILY Tobacco use date assessed: 11/29/22 Dental Screening Dental Screen Date: 11/29/22 Did you have a dental visit in the last 12 months?: No Did you have a dental problem in the last 6 months where you did not have access to dental care?: No Was dental information given to patient?: No HPI hyperlipidemia, HTN, IFG HPI Details Patient comes in today for his follow up visit States that he feels okay He denies any headaches; still has on and off bouts of dizziness/vertigo He was referred to and seen by neurology in August 2022 - was advised of concerns about encephalopathy and was sent for an MRI of the brain, which is still awaiting insurance approval and scheduling He was also sent for an EEG while awake for further evaluation - have not yet received any report from neurology regarding this Patient denies any chest pains, no SOB No nausea/vomiting, no abdominal pain No change in bowel habits noted States that he has been experiencing on and off mild numbness over his left small toe lately; denies any pain in his toe or foot Needs a few of his Rx refilled Had his follow up labs done a few days ago - to discuss his results [facility] Medical History (Updated 11/29/22 @ 16:02 by Angelo López MD) Obesity (BMI 30-39.9) Dizziness Depression Anxiety Insomnia Attention deficit hyperactivity disorder (ADHD) Allergic rhinitis Morbid obesity with BMI of 40.0-44.9, adult Elevated TSH GERD without esophagitis Impaired fasting glucose Elevated LFTs Pure hypercholesterolemia Benign essential hypertension Vitamin D deficiency Surgical History No pertinent past surgical history Family History Father Hypertension CVD (cardiovascular disease) Mother Diabetes Brother No problems noted. Other Mental health problem Social History Housing: Apartment Alcohol intake: current Alcohol intake frequency: holidays/special occasions only Patient Tobacco Use Status: Never used Tobacco e-Cigarette/Vaping Use: Never Used Second Hand Smoke Exposure: Yes service: No Current occupational status: disabled Cognitive needs: No Hearing needs: No Vision needs: No Questionnaire PHQ-9 Over the last 2 weeks, how often have you been bothered by any of the following problems? 1. Little interest or pleasure in doing things: several days 2. Feeling down, depressed, or hopeless: several days 3. Trouble falling or staying asleep, or sleeping too much: several days 4. Feeling tired or having little energy: several days 5. Poor appetite or overeating: several days 6. Feeling bad about yourself - or that you are a failure or have let yourself or your family down: not at all 7. Trouble concentrating on things, such as reading the newspaper or watching television: not at all 8. Moving or speaking so slowly that other people could have noticed. Or the opposite - being so fidgety or restless that you have been moving around a lot more than usual: not at all 9. Thoughts that you would be better off or of hurting yourself in some way: not at all Total score: 5 Depression Screening Interpretation: Positive Depression Screening Follow-up: Existing condition and In treatment Depression Screening Done: Yes [id number] - PHQ-9 Billing: Yes Source: Developed by Drs. Ramón Alcala, Bernadette Bourgeois, Jd Mullins and colleagues, with an educational robel from [email or web address]. Thrive Questionnaire Date Thrive assessed: 11/29/22 I am a: Patient What is your living situation today?: I have a steady place to live Within the past 12 months, did the food you bought not last and you didn't have the money to get more?: Never true Within the past 12 months, did you worry whether your food would run out before you got money to buy more?: Never true Do you have trouble paying for medicines?: No Do you have trouble getting transportation to medical appointments?: No Do you have trouble paying your heating and electricity bill?: No Do you have trouble taking care of your child, family member or friend?: No Do you have trouble with day-to-day activities such as bathing, preparing meals, shopping, managing finances, etc.?: No Are you currently unemployed and looking for a job?: No Are you interested in more education?: No Please select the resources that you would like help with: None Currently or been in a relationship where the following occur: no concerns reported AUDIT C Alcohol Use Questionnaire (AUDIT-C) 1. How often do you have a drink containing alcohol?: Never 3. How often do you have six or more drinks on one occasion?: Never Total Score: 0 Score Reviewed/Action Taken: Yes RONIT-7 AMB Questionnaire RONIT-7 Date RONIT - 7 assessed: 11/29/22 Feeling nervous, anxious, or on edge: 0 = Not at all Not being able to stop or control worryin = Not at all Worrying too much about different things: 0 = Not at all Trouble relaxin = Not at all Being so restless that it is hard to sit still: 0 = Not at all Becoming easily annoyed or irritable: 0 = Not at all Feeling afraid as if something awful might happen: 0 = Not at all Total RONIT-7 score (0-4 normal; 5-9 mild; 10-14 moderate; 15-21 severe): 0 Source: Developed by Drs. Ramón Alcala, Bernadette Bourgeois, Jd Mullins and colleagues, with an educational robel from [email or web address]. Review of Systems Const Denies chills, Denies fatigue, Denies fever(s) and Denies headache(s) ENT Denies dysphagia, Reports dizziness (on and off ), Denies otalgia, Denies headache(s), Denies odynophagia, Denies sinus pain and Denies sore throat Card Denies chest pain, Denies palpitations and Denies dyspnea Resp Denies cough and Denies dyspnea GI Denies abdominal pain, Denies constipation, Denies dysphagia, Denies heartburn, Denies diarrhea, Denies nausea, Denies odynophagia and Denies vomiting Denies dysuria, Denies nocturia and Denies urinary frequency Musc Reports back pain (over the lower back, on and off), Denies arthralgias and Reports numbness (on and off, mild, over the left 5th toe) Neuro Reports dizziness (on and off ), Denies headache(s) and Reports numbness (on and off, mild, over the left 5th toe) Endo Denies fatigue and Denies palpitations Physical exam (Primary Care) Vital Signs: Last Vital Signs Pulse 57 11/29/22 14:08 BP 122/78 11/29/22 14:08 Pulse Ox 99 11/29/22 14:08 Oxygen Delivery Method Room Air 11/29/22 14:08 BMI result Body Mass Index 39.7 Tobacco/Smoking Status: Tobacco use Status Tobacco use date assessed 11/29/22 11/29/22 14:10 Patient Tobacco Use Status Never used Tobacco 11/29/22 14:10 e-Cigarette/Vaping Use Never Used 11/29/22 14:10 PHQ-9: PHQ-9 Score PHQ-9: Total score 5 11/29/22 14:17 Depression Screening Interpretation: Positive Depression Screening Follow-up: Existing condition and In treatment Thrive Assessment: Date of Thrive Assessment Date Thrive assessed 11/29/22 11/29/22 14:10 Currently or been in a relationship where the following occur: no concerns reported Const General: no acute distress and alert HENMT Ears: TM's normal bilaterally and EAC's normal Throat: Yes posterior oropharynx normal and Yes tonsils normal (no TP congestion) Neck Neck: Yes no lymphadenopathy and Yes supple Resp Auscultation: clear to auscultation bilaterally, no rales and no wheezes Cardio Rate: regular rate Rhythm: regular rhythm Heart sounds: no murmurs GI Palpation (GI): Soft to palpation and nontender Auscultation: normal bowel sounds Back/Spine/Pelvis Thoracic/Lumbar Spine: lumbar spinal tenderness (mild) Skin Rashes: no rashes Extrem General: Yes no clubbing, cyanosis or edema Results Reviewed Results Reviewed: Laboratory Tests 11/25/22 11/25/22 09:45 09:47 WBC 8.3 Hgb 14.6 Hct 43.3 Plt Count 231 Sodium 140 Potassium 3.9 Creatinine 1.01 Estimated GFR > 60 Fasting Glucose 86 Hemoglobin A1c % 5.0 Calcium 9.7 AST 25 ALT 29 Triglycerides 109 Cholesterol 117 LDL Cholesterol, Calc 64 HDL Cholesterol 32 L 25-OH Vitamin D Total 32.9 TSH 4.65 H Free T4 0.92 Ur Specific [place] 1.015 Urine Protein Negative Urine Glucose (UA) Negative Urine Blood Negative Assessment and Plan Assessment & Plan (1) Pure hypercholesterolemia: Code(s): E78.00 - Pure hypercholesterolemia, unspecified Plan: Results of his labs done a few days ago reviewed and discussed with patient - advised that his cholesterol levels have improved further from previous Reinforced low cholesterol diet Continue Atorvastatin 40 mg QD Will recheck his labs and fasting lipids in 4 months for follow-up (2) Benign essential hypertension: Code(s): I10 - Essential (primary) hypertension Plan: Reinforced low sodium diet - goal is systolic BP of 120 mm or less His BP has improved a lot since Amlodipine was added a few months ago Continue Valsartan-HCT 320-12.5 mg QD, Hydralazine 25 mg BID and Amlodipine 2.5 mg QD Patient is reminded to continue monitoring his blood pressure regularly (3) Elevated LFTs: Code(s): R79.89 - Other specified abnormal findings of blood chemistry Plan: LFTs have improved and remained normal on his recent labs - were most likely related to his weight Will recheck his LFTs in 4 months for follow-up (4) Impaired fasting glucose: Code(s): R73.01 - Impaired fasting glucose Plan: HgbA1c was at 5.0% on his labs done a few days ago; was previously at 5.8% Reinforced low calorie diet/exercise as tolerated Will recheck his HgbA1c and FBS in 4 months for follow up (5) Dizziness: Code(s): R42 - Dizziness and giddiness Plan: He was referred to and seen by neurology in August 2022 - diagnosed with possible encephalopathy Was sent for a brain MRI for further evaluation - this has yet to be scheduled Was also referred for awake EEG for further evaluation - we have not yet received any report from neurology regarding this Head CT done in June 2022 came out normal Follow up with neurology as scheduled (6) GERD without esophagitis: Code(s): K21.9 - Gastro-esophageal reflux disease without esophagitis Plan: Dietary restrictions reinforced (7) Elevated TSH: Code(s): R79.89 - Other specified abnormal findings of blood chemistry Plan: Free T4 level remains normal on his recent labs; patient is again clinically euthyroid Will continue to monitor his TFTs regularly (8) Vitamin D deficiency: Code(s): E55.9 - Vitamin D deficiency, unspecified Plan: Continue Vitamin D3 2000 units QD Will recheck his Vitamin D level in 4 months for follow up (9) Arthritis of facet joint of lumbar spine: Code(s): M47.816 - Spondylosis without myelopathy or radiculopathy, lumbar region Plan: Lumbar spine x-rays done a few months ago revealed (+) multilevel facet arthritis in the lumbar spine Reinforced activity and weight-lifting restrictions Advised that if he feels that his low back pain is getting worse, options include referal to either physical therapy or pain management - patient states that he will think about this for now and call for referral if his low back pain gets worse (10) Allergic rhinitis: Code(s): J30.9 - Allergic rhinitis, unspecified Qualifiers: Allergic rhinitis trigger: unspecified Allergic rhinitis seasonality: unspecified Qualified Code(s): J30.9 - Allergic rhinitis, unspecified Plan: Continue Fluticasone 50 mcg nasal spray QD PRN (11) Attention deficit hyperactivity disorder (ADHD): Code(s): F90.9 - Attention-deficit hyperactivity disorder, unspecified type Qualifiers: Attention deficit-hyperactivity disorder type: unspecified Qualified Code(s): F90.9 - Attention-deficit hyperactivity disorder, unspecified type Plan: Follow up with psychiatry as scheduled (12) Insomnia: Code(s): G47.00 - Insomnia, unspecified Qualifiers: Insomnia type: unspecified Qualified Code(s): G47.00 - Insomnia, unspecified Plan: Sleep hygiene reinforced Continue Trazodone 50 mg QD PRN (13) Anxiety: Code(s): F41.9 - Anxiety disorder, unspecified Plan: Continue Clonazepam 1 mg PRN (14) Depression: Code(s): F32.9 - Major depressive disorder, single episode, unspecified Qualifiers: Depression Type: major depressive disorder Major depression recurrence: recurrent Active/Remission status: currently active Major depression episode severity: unspecified Qualified Code(s): F33.9 - Major depressive disorder, recurrent, unspecified Plan: Used to take Paroxetine 20 mg QD and Abilify 5 mg BID but it appears that he has not been taking these meds for a while now Follow up with psychiatry as scheduled (15) Obesity (BMI 30-39.9): Code(s): E66.9 - Obesity, unspecified Plan: Reinforced diet/exercise as tolerated/lose weight Plan Follow up in 4 months Orders: Orders Comprehensive [place]. Panel Fast 4 Months E78.00 - Pure hypercholesterolemia, unspecified Complete Blood Count Auto Diff 4 Months I10 - Essential (primary) hypertension Lipid Panel 4 Months E78.00 - Pure hypercholesterolemia, unspecified Hemoglobin A1c 4 Months R73.01 - Impaired fasting glucose UA CC w/rflx Micro + Cult 4 Months R30.0 - Dysuria Vitamin D 25-OH Total 4 Months E55.9 - Vitamin D deficiency, unspecified Free T4 (Free Thyroxine) 4 Months R79.89 - Other specified abnormal findings of blood chemistry Thyroid Stimulating Hormone 4 Months R79.89 - Other specified abnormal findings of blood chemistry Medications: Refilled atorvastatin 40 mg PO DAILY 90 tabs 1RF 90 days amlodipine 2.5 mg PO DAILY 90 tabs 1RF 90 days hydralazine 25 mg PO BID 180 tabs 1RF 90 days valsartan-hydrochlorothiazide 320-12.5 mg 1 tab PO DAILY 90 tabs 3RF Coding Level of Care Code Est Pt Level 4 (26417) Diagnoses Pure hypercholesterolemia E78.00 Benign essential hypertension I10 Elevated LFTs R79.89 Impaired fasting glucose R73.01 Dizziness R42 GERD without esophagitis K21.9 Elevated TSH R79.89 Vitamin D deficiency E55.9 Arthritis of facet joint of lumbar spine M47.816 Allergic rhinitis, unspecified seasonality, unspecified trigger J30.9 Allergic rhinitis trigger: unspecified Allergic rhinitis seasonality: unspecified Attention deficit hyperactivity disorder (ADHD), unspecified ADHD type F90.9 Attention deficit-hyperactivity disorder type: unspecified Insomnia, unspecified type G47.00 Insomnia type: unspecified Anxiety F41.9 Episode of recurrent major depressive disorder, unspecified depression episode severity F33.9 Depression Type: major depressive disorder Major depression recurrence: recurrent Active/Remission status: currently active Major depression episode severity: unspecified Obesity (BMI 30-39.9) E66.9
== END 2022-11-29 14:44 | disposition home or self-care (01) ==
PROVIDERS: PCP Internal Medicine; Visit Provider Internal Medicine
DX: E78.00 Pure hypercholesterolemia, unspecified (principal); I10 Essential (primary) hypertension; R79.89 Other specified abnormal findings of blood chemistry; F33.9 Major depressive disorder, recurrent, unspecified; R73.01 Impaired fasting glucose; R42 Dizziness and giddiness; K21.9 Gastro-esophageal reflux disease without esophagitis; E55.9 Vitamin D deficiency, unspecified; M47.816 Spondylosis without myelopathy or radiculopathy, lumbar region; J30.9 Allergic rhinitis, unspecified; F90.9 Attention-deficit hyperactivity disorder, unspecified type; G47.00 Insomnia, unspecified
CPT/HCPCS: 99214

== ENCOUNTER 2023-03-26 08:58 | Outpatient (REF) | payer OTHER, SELFPAY ==
[2023-03-26 09:15] LABS: MANUAL DIFF FLAG NO
[2023-03-26 10:04] LABS: Basophils Percent Auto 0.1 % (0-2); Eosinophils Absolute Auto 0.1 X10*3/uL (0.0-0.4); Eosinophils Percent Auto 1.3 % (0-4); Hematocrit 41.1 % (42.0-52.0); Hemoglobin 14.1 g/dl (14.0-18.0); Imm Gran Abs Auto 0.02 X10*3/uL (0.00-0.03); Imm Gran Pct Auto 0.3 % (0.0-0.4); Lymphocytes Absolute Auto 2.4 X10*3/uL (1.2-4.9); Lymphocytes Percent Auto 30.1 % (20-40); Mean Corpuscular HGB Conc 34.3 g/dl (31.0-36.0); Mean Corpuscular Hemoglobin 30.8 pg (27.0-33.0); Mean Corpuscular Volume 89.7 fL (80.0-98.0); Mean Platelet Volume 11.3 fL (9.4-12.4); Monocytes Absolute Auto 0.5 X10*3/uL (0.1-1.2); Monocytes Percent Auto 6.7 % (2-11); Neutrophils Absolute Auto 4.9 x10*3/uL (2.0-8.3); Neutrophils Percent Auto 61.5 % (45-73); Platelet Count 226 X10*3/uL (160-400); Red Blood Count 4.58 X10*6/uL (4.60-5.80); Red Cell Distribution Width 13.5 % (11.0-16.0); White Blood Count 7.9 X10*3/uL (4.8-10.8)
[2023-03-26 10:13] LABS: Appearance Urine Clear; Color Urine Yellow; Glucose Urine UA Negative (Negative); Leukocyte Esterase Urine Negative (Negative); Nitrite Urine Negative (Negative); PH 5.5 (5.0-9.0); Specific Gravity - Urine 1.015 (1.005-1.025); Urine Blood Negative (Negative); Urine Ketones Negative (Negative); Urine Protein Negative (Neg-Trace)
[2023-03-26 10:17] LABS: Bacteria Urine None Seen (None Seen); Hyaline Casts Urine 0-2 /LPF (0-2); RBC Urine 0-2 /HPF (0-2); Squamous Epithelial Cell Urine 0-2 /HPF (0-2); WBC Urine 0-5 /HPF (0-5)
[2023-03-26 10:27] LABS: Estimated Average Glucose 94 mg/dL; Hemoglobin A1c % 4.9 % (<6.0)
[2023-03-26 10:50] LABS: Alanine Aminotransferase 29 U/L (0-40); Alkaline Phosphatase 63 U/L (39-117); Anion Gap 13 (12-20); Aspartate Amino Transferase 24 U/L (5-37); Bilirubin Total 0.8 mg/dL (0.0-1.0); Blood Urea Nitrogen 13 mg/dL (9-16); Calcium 9.3 mg/dL (8.4-10.2); Carbon Dioxide 28 mmol/L (22-29); Chloride 104 mmol/L (96-108); Cholesterol 126 mg/dL (<200); Estimated Glomerular Filt Rate > 60; Glucose Fasting 88 mg/dL (60-99); HDL Cholesterol 35 mg/dL (>40); LDL Cholesterol Calculated 69 mg/dL (<100); Potassium 3.4 mmol/L (3.3-5.1); Sodium 142 mmol/L (135-145); Total Protein 7.2 g/dL (6.5-8.0); Triglycerides 113 mg/dL (<150)
[2023-03-26 11:07] LABS: Free T4 (Free Thyroxine) 0.86 ng/dL (0.71-1.85); Thyroid Stimulating Hormone 7.36 uIU/mL (0.32-4.0); Vitamin D 25-OH Total 32.3 ng/mL (>30)
== END 2023-03-26 08:59 | disposition home or self-care (01) ==
LOC: HO.LAB 08:58
PROVIDERS: PCP Internal Medicine; Visit Provider Internal Medicine
DX: I10 Essential (primary) hypertension (principal); E78.00 Pure hypercholesterolemia, unspecified; R94.6 Abnormal results of thyroid function studies; R73.01 Impaired fasting glucose; R30.0 Dysuria; E55.9 Vitamin D deficiency, unspecified
CPT/HCPCS: 36415; 80053; 80061; 81001; 82306; 83036; 84439; 84443; 85025

== ENCOUNTER 2023-04-01 13:41 | Outpatient (AMB) | payer OTHER, SELFPAY ==
[2023-04-01 13:56] VITALS: BP 122/86; PULSE 66; RESP 16; O2SAT 97; BMI 40.3
--- NOTE | 2023-04-01 13:56 | MHC.PC.OV ---
Vital Signs 04/01/23 13:56 Height 5 ft 6 in Weight 250 lb BMI 40.3 BP 122/86 Blood Pressure Location Lt brachial Position Sitting Respiration 16 Pulse 66 Pulse Source Pulse Oximeter Pulse Oximetry (%) 97 Oxygen Delivery Method Room Air Intake Visit Reasons: hyperlipidemia, HTN, IFG Surgical Brace Maker Required: No Accompanied by: Self / Same As Patient Allergies No Known Allergies Allergy (Verified 04/01/23 14:32) Medication List - Last Reconciled 04/01/23 by Angelo López MD amlodipine 2.5 mg PO DAILY 90 days aripiprazole 10 mg PO DAILY atorvastatin 40 mg PO DAILY 90 days cholecalciferol (vitamin D3) 50 mcg PO DAILY clonazepam 0.5 mg PO DAILY PRN hydralazine 25 mg PO BID 90 days meclizine 25 mg PO TID PRN meloxicam 15 mg PO DAILY PRN 30 days paroxetine HCl 10 mg PO DAILY topiramate 50 mg PO BID trazodone 100 mg PO BEDTIME PRN valsartan-hydrochlorothiazide 320-12.5 mg 1 tab PO DAILY Tobacco use date assessed: 04/01/23 Dental Screening Dental Screen Date: 04/01/23 Did you have a dental visit in the last 12 months?: No Did you have a dental problem in the last 6 months where you did not have access to dental care?: No Was dental information given to patient?: Patient has dentist HPI hyperlipidemia, HTN, IFG HPI Details Patient comes in today for his follow up visit States that he feels okay He denies any headaches or dizziness Denies any chest pains, no SOB No nausea/vomiting, no abdominal pain No change in bowel habits noted Had his follow up labs done last week - to discuss his results [facility] Medical History Obesity (BMI 30-39.9) Dizziness Depression Anxiety Insomnia Attention deficit hyperactivity disorder (ADHD) Allergic rhinitis Morbid obesity with BMI of 40.0-44.9, adult Elevated TSH GERD without esophagitis Impaired fasting glucose Elevated LFTs Pure hypercholesterolemia Benign essential hypertension Vitamin D deficiency Surgical History No pertinent past surgical history Family History Father Hypertension CVD (cardiovascular disease) Mother Diabetes Brother No problems noted. Other Mental health problem Social History Housing: Apartment Alcohol intake: current Alcohol intake frequency: holidays/special occasions only Patient Tobacco Use Status: Never used Tobacco e-Cigarette/Vaping Use: Never Used Second Hand Smoke Exposure: Yes service: No Current occupational status: disabled Cognitive needs: No Hearing needs: No Vision needs: No Questionnaire PHQ-9 Over the last 2 weeks, how often have you been bothered by any of the following problems? 1. Little interest or pleasure in doing things: more than half the days 2. Feeling down, depressed, or hopeless: more than half the days 3. Trouble falling or staying asleep, or sleeping too much: several days 4. Feeling tired or having little energy: more than half the days 5. Poor appetite or overeating: nearly every day 6. Feeling bad about yourself - or that you are a failure or have let yourself or your family down: more than half the days 7. Trouble concentrating on things, such as reading the newspaper or watching television: several days 8. Moving or speaking so slowly that other people could have noticed. Or the opposite - being so fidgety or restless that you have been moving around a lot more than usual: nearly every day 9. Thoughts that you would be better off or of hurting yourself in some way: several days Total score: 17 Depression Screening Interpretation: Positive Depression Screening Follow-up: Existing condition and In treatment Depression Screening Done: Yes 84854 - PHQ-9 Billing: Yes Source: Developed by Drs. Ramón Alcala, Bernadette Bourgeois, Jd Mullins and colleagues, with an educational robel from [employer]. Thrive Questionnaire Date Thrive assessed: 04/01/23 I am a: Patient What is your living situation today?: I have a steady place to live Within the past 12 months, did the food you bought not last and you didn't have the money to get more?: Never true Within the past 12 months, did you worry whether your food would run out before you got money to buy more?: Never true Do you have trouble paying for medicines?: No Do you have trouble getting transportation to medical appointments?: No Do you have trouble paying your heating and electricity bill?: No Do you have trouble taking care of your child, family member or friend?: No Do you have trouble with day-to-day activities such as bathing, preparing meals, shopping, managing finances, etc.?: No Are you currently unemployed and looking for a job?: No Are you interested in more education?: No Please select the resources that you would like help with: None Currently or been in a relationship where the following occur: no concerns reported THRIVE Score: 0 AUDIT C Alcohol Use Questionnaire (AUDIT-C) 1. How often do you have a drink containing alcohol?: Never 3. How often do you have six or more drinks on one occasion?: Never Total Score: 0 Score Reviewed/Action Taken: Yes RONIT-7 AMB Questionnaire RONIT-7 Date RONIT - 7 assessed: 11/29/22 Source: Developed by Drs. Ramón Alcala, Bernadette Bourgeois, Jd Mullins and colleagues, with an educational robel from [employer]. Review of Systems Const Denies chills, Denies fatigue, Denies fever(s) and Denies headache(s) ENT Denies dysphagia, Denies dizziness, Denies otalgia, Denies headache(s), Denies neck pain, Denies odynophagia, Denies sinus pain and Denies sore throat Card Denies chest pain, Denies palpitations and Denies dyspnea Resp Denies cough, Denies dyspnea and Denies wheezing GI Denies abdominal pain, Denies constipation, Denies dysphagia, Denies heartburn, Denies diarrhea, Denies nausea, Denies odynophagia and Denies vomiting Denies dysuria, Denies nocturia and Denies urinary frequency Musc Reports back pain (over the lower back, on and off), Denies arthralgias and Denies neck pain Skin/Breast Denies rash Neuro Denies dizziness and Denies headache(s) Psych Denies anxiety (controlled on current Rx) and Denies depression Endo Denies fatigue and Denies palpitations Aller/Immun Denies wheezing Physical exam (Primary Care) Vital Signs: Last Vital Signs Pulse 66 04/01/23 13:56 Resp 16 04/01/23 13:56 BP 122/86 04/01/23 13:56 Pulse Ox 97 04/01/23 13:56 Oxygen Delivery Method Room Air 04/01/23 13:56 BMI result Body Mass Index 40.3 Tobacco/Smoking Status: Tobacco use Status Tobacco use date assessed 04/01/23 04/01/23 14:06 Patient Tobacco Use Status Never used Tobacco 04/01/23 14:06 e-Cigarette/Vaping Use Never Used 04/01/23 14:06 PHQ-9: PHQ-9 Score PHQ-9: Total score 17 04/01/23 14:38 Depression Screening Interpretation: Positive Depression Screening Follow-up: Existing condition and In treatment Thrive Assessment: Date of Thrive Assessment Date Thrive assessed 04/01/23 04/01/23 14:06 Currently or been in a relationship where the following occur: no concerns reported Const General: no acute distress and alert HENMT Ears: TM's normal bilaterally and EAC's normal Throat: Yes posterior oropharynx normal and Yes tonsils normal (no TP congestion) Neck Neck: Yes no lymphadenopathy and Yes supple Resp Auscultation: clear to auscultation bilaterally, no rales and no wheezes Cardio Rate: regular rate Rhythm: regular rhythm Heart sounds: no murmurs GI Palpation (GI): Soft to palpation and nontender Auscultation: normal bowel sounds Back/Spine/Pelvis Thoracic/Lumbar Spine: lumbar spinal tenderness (mild) Skin Rashes: no rashes Extrem General: Yes no clubbing, cyanosis or edema Results Reviewed Results Reviewed: Laboratory Tests 03/26/23 03/26/23 09:13 09:15 WBC 7.9 Hgb 14.1 Hct 41.1 L Plt Count 226 Sodium 142 Potassium 3.4 Creatinine 1.03 Estimated GFR > 60 Fasting Glucose 88 Estimat Average Glucose 94 Hemoglobin A1c % 4.9 Calcium 9.3 AST 24 ALT 29 Triglycerides 113 Cholesterol 126 LDL Cholesterol, Calc 69 HDL Cholesterol 35 L 25-OH Vitamin D Total 32.3 TSH 7.36 H Free T4 0.86 Urine pH 5.5 Ur Specific [place] 1.015 Urine Protein Negative Urine Glucose (UA) Negative Urine Blood Negative Urine Nitrite Negative Ur Leukocyte Esterase Negative Assessment and Plan Assessment & Plan (1) Pure hypercholesterolemia: Code(s): E78.00 - Pure hypercholesterolemia, unspecified Plan: Results of his labs done last week reviewed and discussed with patient Reinforced low cholesterol diet Continue Atorvastatin 40 mg QD Will recheck his labs and fasting lipids in 4 months for follow-up (2) Benign essential hypertension: Code(s): I10 - Essential (primary) hypertension Plan: Reinforced low sodium diet - goal is systolic BP of 120 mm or less Continue Valsartan-HCT 320-12.5 mg QD, Hydralazine 25 mg BID and Amlodipine 2.5 mg QD Patient is reminded to continue monitoring his blood pressure regularly (3) Elevated LFTs: Code(s): R79.89 - Other specified abnormal findings of blood chemistry Plan: LFTs have improved and remained normal on his recent labs - were most likely related to his weight Will recheck his LFTs in 4 months for follow-up (4) Impaired fasting glucose: Code(s): R73.01 - Impaired fasting glucose Plan: HgbA1c was at 4.9% on his labs done last week; was previously at 5.0% Reinforced low calorie diet/exercise as tolerated Will recheck his HgbA1c and FBS in 4 months for follow up (5) Dizziness: Code(s): R42 - Dizziness and giddiness Plan: He was referred to and seen by neurology in August 2022 - diagnosed with possible encephalopathy Was sent for a brain MRI for further evaluation - this looks like it was denied by insurance Was also referred for awake EEG for further evaluation - test reportedly came out normal Head CT done in June 2022 came out normal Follow up with neurology as scheduled (6) GERD without esophagitis: Code(s): K21.9 - Gastro-esophageal reflux disease without esophagitis Plan: Dietary restrictions reinforced (7) Elevated TSH: Code(s): R79.89 - Other specified abnormal findings of blood chemistry Plan: His serum TSH is still elevated but has not gone up significantly on his recent labs; Free T4 level remains normal Patient is again clinically euthyroid at present Will continue to monitor his TFTs regularly (8) Vitamin D deficiency: Code(s): E55.9 - Vitamin D deficiency, unspecified Plan: Continue Vitamin D3 2000 units QD (9) Arthritis of facet joint of lumbar spine: Code(s): M47.816 - Spondylosis without myelopathy or radiculopathy, lumbar region Plan: Lumbar spine x-rays done last year revealed (+) multilevel facet arthritis in the lumbar spine Reinforced activity and weight-lifting restrictions Advised that if he feels that his low back pain is getting worse, options include referral to either physical therapy or pain management - patient states that he will call for referral when needed (10) Allergic rhinitis: Code(s): J30.9 - Allergic rhinitis, unspecified Qualifiers: Allergic rhinitis seasonality: unspecified Allergic rhinitis trigger: unspecified Qualified Code(s): J30.9 - Allergic rhinitis, unspecified Plan: Continue Fluticasone 50 mcg nasal spray QD PRN (11) Attention deficit hyperactivity disorder (ADHD): Code(s): F90.9 - Attention-deficit hyperactivity disorder, unspecified type Qualifiers: Attention deficit-hyperactivity disorder type: unspecified Qualified Code(s): F90.9 - Attention-deficit hyperactivity disorder, unspecified type Plan: Follow up with psychiatry as scheduled (12) Insomnia: Code(s): G47.00 - Insomnia, unspecified Qualifiers: Insomnia type: unspecified Qualified Code(s): G47.00 - Insomnia, unspecified Plan: Sleep hygiene reinforced Continue Trazodone 100 mg QD PRN (13) Anxiety: Code(s): F41.9 - Anxiety disorder, unspecified Plan: Continue Clonazepam 0.5 mg PRN (14) Depression: Code(s): F32.9 - Major depressive disorder, single episode, unspecified Qualifiers: Active/Remission status: currently active Depression Type: major depressive disorder Major depression episode severity: unspecified Major depression recurrence: recurrent Qualified Code(s): F33.9 - Major depressive disorder, recurrent, unspecified Plan: Continue Paroxetine 10 mg QD and Aripiprazole 10 mg Q HS; he is also on Topiramate 50 mg BID Follow up with psychiatry as scheduled (15) Obesity (BMI 30-39.9): Code(s): E66.9 - Obesity, unspecified Plan: Reinforced diet/exercise as tolerated/lose weight Plan Follow up in 4 months Orders: Orders Lipid Panel 4 Months E78.00 - Pure hypercholesterolemia, unspecified Vitamin B12 and Folate 4 Months E53.8 - Deficiency of other specified B group vitamins Vitamin D 25-OH Total 4 Months E55.9 - Vitamin D deficiency, unspecified Comprehensive [place]. Panel Fast 4 Months E78.00 - Pure hypercholesterolemia, unspecified Thyroid Stimulating Hormone 4 Months R79.89 - Other specified abnormal findings of blood chemistry Free T4 (Free Thyroxine) 4 Months R79.89 - Other specified abnormal findings of blood chemistry Thyroxine Binding Globulin 4 Months R79.89 - Other specified abnormal findings of blood chemistry Complete Blood Count Auto Diff 4 Months D64.9 - Anemia, unspecified Hemoglobin A1c 4 Months R73.01 - Impaired fasting glucose UA CC w/rflx Micro + Cult 4 Months R30.0 - Dysuria Coding Level of Care Code Est Pt Level 4 (41625) Diagnoses Pure hypercholesterolemia E78.00 Benign essential hypertension I10 Elevated LFTs R79.89 Impaired fasting glucose R73.01 Dizziness R42 GERD without esophagitis K21.9 Elevated TSH R79.89 Vitamin D deficiency E55.9 Arthritis of facet joint of lumbar spine M47.816 Allergic rhinitis, unspecified seasonality, unspecified trigger J30.9 Allergic rhinitis seasonality: unspecified Allergic rhinitis trigger: unspecified Attention deficit hyperactivity disorder (ADHD), unspecified ADHD type F90.9 Attention deficit-hyperactivity disorder type: unspecified Insomnia, unspecified type G47.00 Insomnia type: unspecified Anxiety F41.9 Episode of recurrent major depressive disorder, unspecified depression episode severity F33.9 Active/Remission status: currently active Depression Type: major depressive disorder Major depression episode severity: unspecified Major depression recurrence: recurrent Obesity (BMI 30-39.9) E66.9
== END 2023-04-01 14:41 | disposition home or self-care (01) ==
PROVIDERS: PCP Internal Medicine; Visit Provider Internal Medicine
DX: E78.00 Pure hypercholesterolemia, unspecified (principal); F33.9 Major depressive disorder, recurrent, unspecified; E66.9 Obesity, unspecified; Z68.41 Body mass index [BMI] 40.0-44.9, adult; I10 Essential (primary) hypertension; R79.89 Other specified abnormal findings of blood chemistry; R73.01 Impaired fasting glucose; R42 Dizziness and giddiness; K21.9 Gastro-esophageal reflux disease without esophagitis; E55.9 Vitamin D deficiency, unspecified; M47.816 Spondylosis without myelopathy or radiculopathy, lumbar region; J30.9 Allergic rhinitis, unspecified
CPT/HCPCS: 99214

== ENCOUNTER 2023-07-30 09:23 | Outpatient (REF) | payer OTHER, SELFPAY ==
[2023-07-30 09:57] LABS: MANUAL DIFF FLAG NO
[2023-07-30 10:31] LABS: Basophils Percent Auto 0.4 % (0-2); Eosinophils Absolute Auto 0.2 X10*3/uL (0.0-0.4); Eosinophils Percent Auto 2.3 % (0-4); Hematocrit 39.3 % (42.0-52.0); Hemoglobin 13.7 g/dl (14.0-18.0); Imm Gran Abs Auto 0.01 X10*3/uL (0.00-0.03); Imm Gran Pct Auto 0.1 % (0.0-0.4); Lymphocytes Absolute Auto 2.4 X10*3/uL (1.2-4.9); Lymphocytes Percent Auto 30.2 % (20-40); Mean Corpuscular HGB Conc 34.9 g/dl (31.0-36.0); Mean Corpuscular Hemoglobin 31.4 pg (27.0-33.0); Mean Corpuscular Volume 90.1 fL (80.0-98.0); Mean Platelet Volume 11.6 fL (9.4-12.4); Monocytes Absolute Auto 0.5 X10*3/uL (0.1-1.2); Monocytes Percent Auto 6.1 % (2-11); Neutrophils Absolute Auto 4.8 x10*3/uL (2.0-8.3); Neutrophils Percent Auto 60.9 % (45-73); Platelet Count 206 X10*3/uL (160-400); Red Blood Count 4.36 X10*6/uL (4.60-5.80); Red Cell Distribution Width 13.6 % (11.0-16.0); White Blood Count 7.9 X10*3/uL (4.8-10.8)
[2023-07-30 10:38] LABS: Estimated Average Glucose 105 mg/dL; Hemoglobin A1c % 5.3 % (<6.0)
[2023-07-30 10:42] LABS: Appearance Urine Clear; Color Urine Dark Yellow; Glucose Urine UA Negative (Negative); Leukocyte Esterase Urine Negative (Negative); Nitrite Urine Negative (Negative); PH 5.5 (5.0-9.0); Specific Gravity - Urine >= 1.030 (1.005-1.025); Urine Blood Negative (Negative); Urine Ketones Negative (Negative); Urine Protein Trace mg/dL (Neg-Trace)
[2023-07-30 11:02] LABS: Alanine Aminotransferase 24 U/L (0-40); Albumin Level 3.9 g/dL (3.5-5.0); Alkaline Phosphatase 59 U/L (39-117); Anion Gap 11 (12-20); Aspartate Amino Transferase 21 U/L (5-37); Bilirubin Total 0.7 mg/dL (0.0-1.0); Blood Urea Nitrogen 15 mg/dL (9-16); Calcium 9.1 mg/dL (8.4-10.2); Carbon Dioxide 29 mmol/L (22-29); Chloride 108 mmol/L (96-108); Cholesterol 128 mg/dL (<200); Estimated Glomerular Filt Rate > 60; Glucose Fasting 98 mg/dL (60-99); HDL Cholesterol 40 mg/dL (>40); LDL Cholesterol Calculated 73 mg/dL (<100); Potassium 3.5 mmol/L (3.3-5.1); Sodium 144 mmol/L (135-145); Total Protein 7.1 g/dL (6.5-8.0); Triglycerides 79 mg/dL (<150)
[2023-07-30 11:19] LABS: Free T4 (Free Thyroxine) 0.86 ng/dL (0.71-1.85); Thyroid Stimulating Hormone 4.98 uIU/mL (0.32-4.0)
[2023-07-30 11:30] LABS: Folate 10.8 ng/mL (> or = 4.0); Vitamin B12 397 pg/mL (200-900)
[2023-07-30 11:49] LABS: Vitamin D 25-OH Total 28.8 ng/mL (>30)
[2023-08-07 12:53] LABS: Thyroxine Binding Globulin 17.7 mcg/mL (12.7-25.1)
== END 2023-07-30 09:24 | disposition home or self-care (01) ==
LOC: HO.LAB 09:23
PROVIDERS: PCP Internal Medicine; Visit Provider Internal Medicine
DX: E55.9 Vitamin D deficiency, unspecified (principal); E53.8 Deficiency of other specified B group vitamins; R30.0 Dysuria; R79.89 Other specified abnormal findings of blood chemistry; E78.00 Pure hypercholesterolemia, unspecified; R73.01 Impaired fasting glucose; D64.9 Anemia, unspecified
CPT/HCPCS: 36415; 80053; 80061; 81003; 82306; 82607; 82746; 83036; 84439; 84442; 84443; 85025

== ENCOUNTER 2023-08-02 13:28 | Outpatient (AMB) | payer OTHER, SELFPAY ==
[2023-08-02 13:50] VITALS: BP 136/82; PULSE 73; O2SAT 98; BMI 41.0
--- NOTE | 2023-08-02 13:50 | A.OFFPC_ITS ---
Vital Signs 08/02/23 13:50 Height 5 ft 6 in Weight 254 lb BMI 41.0 BP 136/82 Blood Pressure Location Lt brachial Position Sitting Pulse 73 Pulse Source Pulse Oximeter Pulse Oximetry (%) 98 Oxygen Delivery Method Room Air Intake Visit Reasons: hyperlipidemia, HTN, elevated TSH, anxiety Intake Note: Patient is here to follow up Allergies No Known Allergies Allergy (Verified 08/02/23 15:08) Medication List - Last Reconciled 08/02/23 by Angelo López MD amlodipine 2.5 mg PO DAILY 90 days aripiprazole 10 mg PO DAILY atorvastatin 40 mg PO DAILY 90 days cholecalciferol (vitamin D3) 50 mcg PO DAILY clonazepam 0.5 mg PO DAILY PRN hydralazine 25 mg PO BID 90 days meclizine 25 mg PO TID PRN meloxicam 15 mg PO DAILY PRN 30 days paroxetine HCl 10 mg PO DAILY topiramate 50 mg PO BID trazodone 100 mg PO BEDTIME PRN valsartan-hydrochlorothiazide 320-12.5 mg 1 tab PO DAILY Tobacco use date assessed: 04/01/23 Dental Screening Dental Screen Date: 04/01/23 HPI hyperlipidemia, HTN, elevated TSH, anxiety HPI Details Patient comes in today for his follow up visit States that he feels okay He denies any headaches or dizziness - states that he has not had any further dizzy spells since his blood pressure has been better controlled over the past few months Denies any chest pains, no SOB No nausea/vomiting, no abdominal pain No change in bowel habits noted Needs his Meloxicam Rx refilled today He had his follow up labs done a few days ago - to discuss his results [facility] Medical History Obesity (BMI 30-39.9) Dizziness Depression Anxiety Insomnia Attention deficit hyperactivity disorder (ADHD) Allergic rhinitis Morbid obesity with BMI of 40.0-44.9, adult Elevated TSH GERD without esophagitis Impaired fasting glucose Elevated LFTs Pure hypercholesterolemia Benign essential hypertension Vitamin D deficiency Surgical History No pertinent past surgical history Family History Father Hypertension CVD (cardiovascular disease) Mother Diabetes Brother No problems noted. Other Mental health problem Social History Housing: Apartment Alcohol intake: current Alcohol intake frequency: holidays/special occasions only Patient Tobacco Use Status: Never used Tobacco e-Cigarette/Vaping Use: Never Used Second Hand Smoke Exposure: Yes service: No Current occupational status: disabled Cognitive needs: No Hearing needs: No Vision needs: No Questionnaire PHQ-9 Over the last 2 weeks, how often have you been bothered by any of the following problems? 1. Little interest or pleasure in doing things: more than half the days 2. Feeling down, depressed, or hopeless: more than half the days 3. Trouble falling or staying asleep, or sleeping too much: several days 4. Feeling tired or having little energy: more than half the days 5. Poor appetite or overeating: nearly every day 6. Feeling bad about yourself - or that you are a failure or have let yourself or your family down: more than half the days 7. Trouble concentrating on things, such as reading the newspaper or watching television: several days 8. Moving or speaking so slowly that other people could have noticed. Or the opposite - being so fidgety or restless that you have been moving around a lot more than usual: nearly every day 9. Thoughts that you would be better off or of hurting yourself in some way: several days Total score: 17 Depression Screening Interpretation: Positive Depression Screening Follow-up: Existing condition and In treatment Depression Screening Done: Yes 42078 - PHQ-9 Billing: Yes Source: Developed by Drs. Ramón Alcala, Benradette Bourgeois, Jd Mullins and colleagues, with an educational robel from [employer]. Thrive Questionnaire Date Thrive assessed: 04/01/23 I am a: Patient What is your living situation today?: I have a steady place to live Within the past 12 months, did the food you bought not last and you didn't have the money to get more?: Never true Within the past 12 months, did you worry whether your food would run out before you got money to buy more?: Never true Do you have trouble paying for medicines?: No Do you have trouble getting transportation to medical appointments?: No Do you have trouble paying your heating and electricity bill?: No Do you have trouble taking care of your child, family member or friend?: No Do you have trouble with day-to-day activities such as bathing, preparing meals, shopping, managing finances, etc.?: No Are you currently unemployed and looking for a job?: No Are you interested in more education?: No Please select the resources that you would like help with: None Currently or been in a relationship where the following occur: no concerns reported THRIVE Score: 0 AUDIT C Alcohol Use Questionnaire (AUDIT-C) 1. How often do you have a drink containing alcohol?: Never 3. How often do you have six or more drinks on one occasion?: Never Total Score: 0 Score Reviewed/Action Taken: Yes RONIT-7 AMB Questionnaire RONIT-7 Date RONIT - 7 assessed: 08/02/23 (patient states he is being treated for dep/anx) Feeling nervous, anxious, or on edge: 0 = Not at all Not being able to stop or control worryin = Not at all Worrying too much about different things: 0 = Not at all Trouble relaxin = Not at all Being so restless that it is hard to sit still: 0 = Not at all Becoming easily annoyed or irritable: 0 = Not at all Feeling afraid as if something awful might happen: 0 = Not at all Total RONIT-7 score (0-4 normal; 5-9 mild; 10-14 moderate; 15-21 severe): 0 Source: Developed by Drs. Ramón Alcala, Bernadette Bourgeois, Jd Mullins and colleagues, with an educational robel from [employer]. RONIT-7 Assessment Billing RONIT-7 Assessment Tool: RONIT-7 Assessment 55024 Review of Systems Const Denies chills, Denies fatigue, Denies fever(s) and Denies headache(s) ENT Denies dysphagia, Denies dizziness, Denies otalgia, Denies headache(s), Denies neck pain, Denies odynophagia, Denies sinus pain and Denies sore throat Card Denies chest pain, Denies palpitations and Denies dyspnea Resp Denies cough, Denies dyspnea and Denies wheezing GI Denies abdominal pain, Denies constipation, Denies dysphagia, Denies heartburn, Denies diarrhea, Denies nausea, Denies odynophagia and Denies vomiting Denies dysuria, Denies nocturia and Denies urinary frequency Musc Reports back pain (over the lower back, on and off), Denies arthralgias and Denies neck pain Skin/Breast Denies rash Neuro Denies dizziness and Denies headache(s) Psych Denies anxiety (controlled on current Rx) and Denies depression Endo Denies fatigue and Denies palpitations Aller/Immun Denies wheezing Physical exam (Primary Care) Vital Signs: Last Vital Signs Pulse 73 08/02/23 13:50 BP 136/82 08/02/23 13:50 Pulse Ox 98 08/02/23 13:50 Oxygen Delivery Method Room Air 08/02/23 13:50 BMI result Body Mass Index 41.0 Tobacco/Smoking Status: Tobacco use Status Tobacco use date assessed 04/01/23 08/02/23 13:51 Patient Tobacco Use Status Never used Tobacco 08/02/23 13:51 e-Cigarette/Vaping Use Never Used 08/02/23 13:51 PHQ-9: PHQ-9 Score PHQ-9: Total score 17 08/02/23 14:33 Depression Screening Interpretation: Positive Depression Screening Follow-up: Existing condition and In treatment Thrive Assessment: Date of Thrive Assessment Date Thrive assessed 04/01/23 08/02/23 13:51 Currently or been in a relationship where the following occur: no concerns reported Const General: no acute distress and alert HENMT Ears: TM's normal bilaterally and EAC's normal Throat: Yes posterior oropharynx normal and Yes tonsils normal (no TP congestion) Neck Neck: Yes no lymphadenopathy and Yes supple Thyroid: Thyroid normal Resp Auscultation: clear to auscultation bilaterally, no rales and no wheezes Cardio Rate: regular rate Rhythm: regular rhythm Heart sounds: no murmurs GI Palpation (GI): Soft to palpation and nontender Auscultation: normal bowel sounds General: Yes no CVA tenderness Back/Spine/Pelvis Back: no CVA tenderness Thoracic/Lumbar Spine: lumbar spinal tenderness (mild) Skin Rashes: no rashes Extrem General: Yes no clubbing, cyanosis or edema Results Reviewed Results Reviewed: Laboratory Tests 07/30/23 09:55 WBC 7.9 Hgb 13.7 L Hct 39.3 L Plt Count 206 Sodium 144 Potassium 3.5 Creatinine 1.09 Estimated GFR > 60 Fasting Glucose 98 Hemoglobin A1c % 5.3 Calcium 9.1 AST 21 ALT 24 Triglycerides 79 Cholesterol 128 LDL Cholesterol, Calc 73 HDL Cholesterol 40 L Vitamin B12 397 25-OH Vitamin D Total 28.8 L TSH 4.98 H Free T4 0.86 Ur Specific [place] >= 1.030 H Urine Protein Trace Urine Glucose (UA) Negative Urine Blood Negative Urine Nitrite Negative Ur Leukocyte Esterase Negative Assessment and Plan Assessment & Plan (1) Pure hypercholesterolemia: Code(s): E78.00 - Pure hypercholesterolemia, unspecified Plan: Results of his labs done a few days ago reviewed and discussed with patient Reinforced low cholesterol diet Continue Atorvastatin 40 mg QD Will recheck his labs and fasting lipids in 4 months for follow-up (2) Benign essential hypertension: Code(s): I10 - Essential (primary) hypertension Plan: Reinforced low sodium diet - goal is systolic BP of 120 mm or less Continue Valsartan-HCT 320-12.5 mg QD, Hydralazine 25 mg BID and Amlodipine 2.5 mg QD Patient is reminded to continue monitoring his blood pressure regularly (3) Elevated LFTs: Code(s): R79.89 - Other specified abnormal findings of blood chemistry Plan: His LFTs have improved and have remained normal on his recent labs - were most likely related to his weight back then Will recheck his LFTs in 4 months for follow-up (4) Impaired fasting glucose: Code(s): R73.01 - Impaired fasting glucose Plan: His HgbA1c was at 5.3% on his labs done a few days ago (was at 4.9% and 5.0% when previously checked) Reinforced low calorie diet/exercise as tolerated Will recheck his HgbA1c and FBS in 4 months for follow up (5) GERD without esophagitis: Code(s): K21.9 - Gastro-esophageal reflux disease without esophagitis Plan: Dietary restrictions reinforced (6) Elevated TSH: Code(s): R79.89 - Other specified abnormal findings of blood chemistry Plan: His serum TSH is still elevated but has improved further from before on his recent labs; Free T4 level remains normal Patient is again clinically euthyroid at present and no intervention is indicated at this time Will continue to monitor his TFTs regularly (7) Vitamin D deficiency: Code(s): E55.9 - Vitamin D deficiency, unspecified Plan: Continue Vitamin D3 2000 units QD (8) Arthritis of facet joint of lumbar spine: Code(s): M47.816 - Spondylosis without myelopathy or radiculopathy, lumbar region Plan: Lumbar spine x-rays done last year revealed (+) multilevel facet arthritis in the lumbar spine Reinforced activity and weight-lifting restrictions Continue Meloxicam 15 mg QD with food PRN for pain - Rx refilled Advised that if he feels that his low back pain is getting worse, options include referral to either physical therapy or pain management - patient states that he will call for referral when needed (9) Allergic rhinitis: Code(s): J30.9 - Allergic rhinitis, unspecified Qualifiers: Allergic rhinitis trigger: unspecified Allergic rhinitis seasonality: unspecified Qualified Code(s): J30.9 - Allergic rhinitis, unspecified Plan: Continue Fluticasone 50 mcg nasal spray QD PRN (10) Attention deficit hyperactivity disorder (ADHD): Code(s): F90.9 - Attention-deficit hyperactivity disorder, unspecified type Qualifiers: Attention deficit-hyperactivity disorder type: unspecified Qualified Code(s): F90.9 - Attention-deficit hyperactivity disorder, unspecified type Plan: Follow up with psychiatry as scheduled (11) Insomnia: Code(s): G47.00 - Insomnia, unspecified Qualifiers: Insomnia type: unspecified Qualified Code(s): G47.00 - Insomnia, unspecified Plan: Sleep hygiene reinforced Continue Trazodone 100 mg QD PRN (12) Anxiety: Code(s): F41.9 - Anxiety disorder, unspecified Plan: Continue Clonazepam 0.5 mg PRN (13) Depression: Code(s): F32.9 - Major depressive disorder, single episode, unspecified Qualifiers: Depression Type: major depressive disorder Major depression recurrence: recurrent Active/Remission status: currently active Major depression episode severity: unspecified Qualified Code(s): F33.9 - Major depressive disorder, recurrent, unspecified Plan: Continue Paroxetine 10 mg QD and Aripiprazole 10 mg Q HS; he is also on Topiramate 50 mg BID Follow up with psychiatry as scheduled (14) Obesity (BMI 30-39.9): Code(s): E66.9 - Obesity, unspecified Plan: Reinforced diet/exercise as tolerated/lose weight Plan Follow up in 4 months Orders: Orders Comprehensive [place]. Panel Fast 4 Months E78.00 - Pure hypercholesterolemia, unspecified Lipid Panel 4 Months E78.00 - Pure hypercholesterolemia, unspecified Thyroid Stimulating Hormone 4 Months R79.89 - Other specified abnormal findings of blood chemistry Free T4 (Free Thyroxine) 4 Months R79.89 - Other specified abnormal findings of blood chemistry Vitamin D 25-OH Total 4 Months E55.9 - Vitamin D deficiency, unspecified Complete Blood Count Auto Diff 4 Months D64.9 - Anemia, unspecified UA CC w/rflx Micro + Cult 4 Months R30.0 - Dysuria Hemoglobin A1c 4 Months R73.01 - Impaired fasting glucose Coding Level of Care Code Est Pt Level 4 (77890) Complex EM visit Add On G2211 Diagnoses Pure hypercholesterolemia E78.00 Benign essential hypertension I10 Elevated LFTs R79.89 Impaired fasting glucose R73.01 GERD without esophagitis K21.9 Elevated TSH R79.89 Vitamin D deficiency E55.9 Arthritis of facet joint of lumbar spine M47.816 Allergic rhinitis, unspecified seasonality, unspecified trigger J30.9 Allergic rhinitis trigger: unspecified Allergic rhinitis seasonality: unspecified Attention deficit hyperactivity disorder (ADHD), unspecified ADHD type F90.9 Attention deficit-hyperactivity disorder type: unspecified Insomnia, unspecified type G47.00 Insomnia type: unspecified Anxiety F41.9 Episode of recurrent major depressive disorder, unspecified depression episode severity F33.9 Depression Type: major depressive disorder Major depression recurrence: recurrent Active/Remission status: currently active Major depression episode severity: unspecified Obesity (BMI 30-39.9) E66.9 Additional Codes RONIT-7 Assessment Billing - RONIT-7 Assessment Tool: RONIT-7 Assessment [id number] ([id number])
== END 2023-08-02 15:19 | disposition home or self-care (01) ==
PROVIDERS: PCP Internal Medicine; Visit Provider Internal Medicine
DX: E78.00 Pure hypercholesterolemia, unspecified (principal); F33.9 Major depressive disorder, recurrent, unspecified; I10 Essential (primary) hypertension; R79.89 Other specified abnormal findings of blood chemistry; R73.01 Impaired fasting glucose; K21.9 Gastro-esophageal reflux disease without esophagitis; E55.9 Vitamin D deficiency, unspecified; M47.816 Spondylosis without myelopathy or radiculopathy, lumbar region; J30.9 Allergic rhinitis, unspecified; F90.9 Attention-deficit hyperactivity disorder, unspecified type; G47.00 Insomnia, unspecified; F41.9 Anxiety disorder, unspecified; E66.9 Obesity, unspecified
CPT/HCPCS: 99214; G2211

== ENCOUNTER 2023-12-03 09:05 | Outpatient (REF) | payer OTHER, SELFPAY ==
[2023-12-03 09:20] LABS: MANUAL DIFF FLAG NO
[2023-12-03 09:55] LABS: Appearance Urine Clear; Color Urine Dark Yellow; Glucose Urine UA Negative (Negative); Leukocyte Esterase Urine Negative (Negative); Nitrite Urine Negative (Negative); PH 5.5 (5.0-9.0); Specific Gravity - Urine >= 1.030 (1.005-1.025); Urine Blood Negative (Negative); Urine Ketones Negative (Negative); Urine Protein Negative (Neg-Trace)
[2023-12-03 09:58] LABS: Basophils Percent Auto 0.2 % (0-2); Eosinophils Absolute Auto 0.1 X10*3/uL (0.0-0.4); Eosinophils Percent Auto 1.5 % (0-4); Hematocrit 42.9 % (42.0-52.0); Hemoglobin 14.6 g/dl (14.0-18.0); Imm Gran Abs Auto 0.02 X10*3/uL (0.00-0.03); Imm Gran Pct Auto 0.2 % (0.0-0.4); Lymphocytes Percent Auto 24.1 % (20-40); Mean Corpuscular Hemoglobin 30.7 pg (27.0-33.0); Mean Corpuscular Volume 90.1 fL (80.0-98.0); Mean Platelet Volume 11.4 fL (9.4-12.4); Monocytes Absolute Auto 0.6 X10*3/uL (0.1-1.2); Monocytes Percent Auto 7.1 % (2-11); Neutrophils Absolute Auto 5.7 x10*3/uL (2.0-8.3); Neutrophils Percent Auto 66.9 % (45-73); Platelet Count 240 X10*3/uL (160-400); Red Blood Count 4.76 X10*6/uL (4.60-5.80); Red Cell Distribution Width 13.4 % (11.0-16.0); White Blood Count 8.5 X10*3/uL (4.8-10.8)
[2023-12-03 10:23] LABS: Estimated Average Glucose 100 mg/dL; Hemoglobin A1C 115.5321 umol/L; Hemoglobin A1c % 5.1 % (<6.0)
[2023-12-03 10:34] LABS: Alanine Aminotransferase 34 U/L (0-40); Alkaline Phosphatase 73 U/L (39-117); Anion Gap 13 (12-20); Aspartate Amino Transferase 28 U/L (5-37); Bilirubin Total 0.8 mg/dL (0.0-1.0); Blood Urea Nitrogen 10 mg/dL (9-16); Calcium 9.4 mg/dL (8.4-10.2); Carbon Dioxide 27 mmol/L (22-29); Chloride 106 mmol/L (96-108); Cholesterol 115 mg/dL (<200); Estimated Glomerular Filt Rate > 60; Glucose Fasting 99 mg/dL (60-99); HDL Cholesterol 37 mg/dL (>40); LDL Cholesterol Calculated 60 mg/dL (<100); Potassium 3.4 mmol/L (3.3-5.1); Sodium 143 mmol/L (135-145); Total Protein 7.3 g/dL (6.5-8.0); Triglycerides 90 mg/dL (<150)
[2023-12-03 10:52] LABS: Free T4 (Free Thyroxine) 0.95 ng/dL (0.71-1.85); Thyroid Stimulating Hormone 4.39 uIU/mL (0.32-4.0); Vitamin D 25-OH Total 32.9 ng/mL (>30)
== END 2023-12-03 09:06 | disposition home or self-care (01) ==
LOC: HO.LAB 09:05
PROVIDERS: PCP Internal Medicine; Visit Provider Internal Medicine
DX: E78.00 Pure hypercholesterolemia, unspecified (principal); E55.9 Vitamin D deficiency, unspecified; R30.0 Dysuria; R73.01 Impaired fasting glucose; R79.89 Other specified abnormal findings of blood chemistry; D64.9 Anemia, unspecified
CPT/HCPCS: 36415; 80053; 80061; 81003; 82306; 83036; 84439; 84443; 85025

== ENCOUNTER 2023-12-12 10:24 | Outpatient (AMB) | payer OTHER, SELFPAY ==
[2023-12-12 10:29] VITALS: BP 140/92; PULSE 65; O2SAT 98; BMI 40.2
--- NOTE | 2023-12-12 10:29 | A.OFFPC_ITS ---
Vital Signs 12/12/23 10:29 12/12/23 11:06 Height 5 ft 6 in Weight 249 lb 4 oz BMI 40.2 BP 140/92 H 136/88 Blood Pressure Location Lt brachial Lt brachial Position Sitting Sitting Pulse 65 Pulse Source Pulse Oximeter Pulse Oximetry (%) 98 Oxygen Delivery Method Room Air Comment has been OUT of Amlodipine 2.5 mg x 2 days Intake Visit Reasons: 4mof\u Applications Sales Representative Required: No Accompanied by: Self / Same As Patient Allergies No Known Allergies Allergy (Verified 12/12/23 11:02) Medication List - Last Reconciled 12/12/23 by Angelo López MD amlodipine 2.5 mg PO DAILY 90 days aripiprazole 10 mg PO DAILY atorvastatin 40 mg PO DAILY 90 days cholecalciferol (vitamin D3) 50 mcg PO DAILY clonazepam 0.5 mg PO DAILY PRN hydralazine 25 mg PO BID 90 days meclizine 25 mg PO TID PRN meloxicam 15 mg PO DAILY PRN 30 days paroxetine HCl 10 mg PO DAILY topiramate 50 mg PO BID trazodone 100 mg PO BEDTIME PRN valsartan-hydrochlorothiazide 320-12.5 mg 1 tab PO DAILY Tobacco use date assessed: 12/12/23 Dental Screening Dental Screen Date: 12/12/23 Did you have a dental visit in the last 12 months?: No Did you have a dental problem in the last 6 months where you did not have access to dental care?: No Was dental information given to patient?: No HPI 4mof\u HPI Details Patient comes in today for his follow up visit States that he feels okay Reports that he has been out of his Amlodipine 2.5 mg for a couple of days now - states that he tried to get his Rx at the pharmacy recently but was reportedly told that he was too early He denies any headaches or dizziness Denies any chest pains, no SOB No nausea/vomiting, no abdominal pain No change in bowel habits noted He had his follow up labs done last week - to discuss his results [facility] Medical History Obesity (BMI 30-39.9) Dizziness Depression Anxiety Insomnia Attention deficit hyperactivity disorder (ADHD) Allergic rhinitis Morbid obesity with BMI of 40.0-44.9, adult Elevated TSH GERD without esophagitis Impaired fasting glucose Elevated LFTs Pure hypercholesterolemia Benign essential hypertension Vitamin D deficiency Surgical History No pertinent past surgical history Family History Father Hypertension CVD (cardiovascular disease) Mother Diabetes Brother No problems noted. Other Mental health problem Social History Housing: Apartment Alcohol intake: current Alcohol intake frequency: holidays/special occasions only Patient Tobacco Use Status: Never used Tobacco e-Cigarette/Vaping Use: Never Used Second Hand Smoke Exposure: Yes service: No Current occupational status: disabled Cognitive needs: No Hearing needs: No Vision needs: No Questionnaire PHQ-9 Over the last 2 weeks, how often have you been bothered by any of the following problems? 1. Little interest or pleasure in doing things: more than half the days 2. Feeling down, depressed, or hopeless: more than half the days 3. Trouble falling or staying asleep, or sleeping too much: several days 4. Feeling tired or having little energy: more than half the days 5. Poor appetite or overeating: nearly every day 6. Feeling bad about yourself - or that you are a failure or have let yourself or your family down: more than half the days 7. Trouble concentrating on things, such as reading the newspaper or watching television: several days 8. Moving or speaking so slowly that other people could have noticed. Or the opposite - being so fidgety or restless that you have been moving around a lot more than usual: nearly every day 9. Thoughts that you would be better off or of hurting yourself in some way: several days Total score: 17 Depression Screening Interpretation: Positive Depression Screening Follow-up: Existing condition and In treatment Depression Screening Done: Yes 19534 - PHQ-9 Billing: Yes Source: Developed by Drs. Ramón Alcala, Bernadette Bourgeois, Jd Mullins and colleagues, with an educational robel from [employer]. Thrive Questionnaire Date Thrive assessed: 12/12/23 I am a: Patient What is your living situation today?: I have a steady place to live Within the past 12 months, did the food you bought not last and you didn't have the money to get more?: Never true Within the past 12 months, did you worry whether your food would run out before you got money to buy more?: Never true Do you have trouble paying for medicines?: No Do you have trouble getting transportation to medical appointments?: No Do you have trouble paying your heating and electricity bill?: No Do you have trouble taking care of your child, family member or friend?: No Do you have trouble with day-to-day activities such as bathing, preparing meals, shopping, managing finances, etc.?: No Are you currently unemployed and looking for a job?: No Are you interested in more education?: No Please select the resources that you would like help with: None Currently or been in a relationship where the following occur: No concerns reported THRIVE Score: 0 AUDIT C Alcohol Use Questionnaire (AUDIT-C) 1. How often do you have a drink containing alcohol?: Never 3. How often do you have six or more drinks on one occasion?: Never Total Score: 0 Score Reviewed/Action Taken: Yes RONIT-7 AMB Questionnaire RONIT-7 Date RONIT - 7 assessed: 12/12/23 (patient states he is being treated for dep/anx) Feeling nervous, anxious, or on edge: 0 = Not at all Not being able to stop or control worryin = Not at all Worrying too much about different things: 0 = Not at all Trouble relaxin = Not at all Being so restless that it is hard to sit still: 0 = Not at all Becoming easily annoyed or irritable: 0 = Not at all Feeling afraid as if something awful might happen: 0 = Not at all Total RONIT-7 score (0-4 normal; 5-9 mild; 10-14 moderate; 15-21 severe): 0 Source: Developed by Drs. Ramón Alcala, Bernadette Bourgeois, Jd Mullins and colleagues, with an educational robel from [employer]. RONIT-7 Assessment Billing RONIT-7 Assessment Tool: RONIT-7 Assessment 89174 Review of Systems Const Denies chills, Denies fatigue, Denies fever(s) and Denies headache(s) ENT Denies dysphagia, Denies dizziness, Denies otalgia, Denies headache(s), Denies neck pain, Denies odynophagia, Denies sinus pain and Denies sore throat Card Denies chest pain, Denies palpitations and Denies dyspnea Resp Denies chest congestion, Denies cough and Denies dyspnea GI Denies abdominal pain, Denies constipation, Denies dysphagia, Denies heartburn, Denies diarrhea, Denies nausea, Denies odynophagia and Denies vomiting Denies dysuria, Denies nocturia and Denies urinary frequency Musc Reports back pain (over the lower back, on and off), Denies arthralgias and Denies neck pain Skin/Breast Denies rash Neuro Denies dizziness and Denies headache(s) Psych Denies anxiety (controlled on current Rx) and Denies depression Endo Denies fatigue and Denies palpitations Physical exam (Primary Care) Vital Signs: Last Vital Signs Pulse 65 12/12/23 10:29 BP 140/92 H 12/12/23 10:29 Pulse Ox 98 12/12/23 10:29 Oxygen Delivery Method Room Air 12/12/23 10:29 BMI result Body Mass Index 40.2 Tobacco/Smoking Status: Tobacco use Status Tobacco use date assessed 12/12/23 12/12/23 10:34 Patient Tobacco Use Status Never used Tobacco 12/12/23 10:34 e-Cigarette/Vaping Use Never Used 12/12/23 10:34 PHQ-9: PHQ-9 Score PHQ-9: Total score 17 12/12/23 10:34 Depression Screening Interpretation: Positive Depression Screening Follow-up: Existing condition and In treatment Thrive Assessment: Date of Thrive Assessment Date Thrive assessed 12/12/23 12/12/23 10:34 Currently or been in a relationship where the following occur: No concerns reported Const General: no acute distress and alert HENMT Ears: TM's normal bilaterally and EAC's normal Throat: Yes posterior oropharynx normal and Yes tonsils normal (no TP congestion) Neck Neck: Yes no lymphadenopathy and Yes supple Thyroid: Thyroid normal Resp Auscultation: clear to auscultation bilaterally, no rales and no wheezes Cardio Rate: regular rate Rhythm: regular rhythm Heart sounds: no murmurs GI Palpation (GI): Soft to palpation and nontender Auscultation: normal bowel sounds General: Yes no CVA tenderness Back/Spine/Pelvis Back: no CVA tenderness Thoracic/Lumbar Spine: lumbar spinal tenderness (mild) Skin Rashes: no rashes Extrem General: Yes no clubbing, cyanosis or edema Office Procedures Flu Questionnaire Does the patient have a severe egg allergy?: No Immunizations Fluarix Triv 6814-1988 (PF) 45 mcg (15 mcg x 3)/0.5 mL IM syringe Performing Provider: Angelo López MD [facility] Documented (not given) by: ALMA ROSA Zuñiga on 12/12/23 10:35 Reason Not Given: Patient Refused Results Reviewed Results Reviewed: Laboratory Tests 12/03/23 12/03/23 09:15 09:19 WBC 8.5 Hgb 14.6 Hct 42.9 Plt Count 240 Sodium 143 Potassium 3.4 Creatinine 1.03 Estimated GFR > 60 Fasting Glucose 99 Hemoglobin A1c % 5.1 Calcium 9.4 AST 28 ALT 34 Triglycerides 90 Cholesterol 115 LDL Cholesterol, Calc 60 HDL Cholesterol 37 L 25-OH Vitamin D Total 32.9 TSH 4.39 H Free T4 0.95 Ur Specific [place] >= 1.030 H Urine Protein Negative Urine Glucose (UA) Negative Urine Blood Negative Urine Nitrite Negative Ur Leukocyte Esterase Negative Coding Level of Care Code Est Pt Level 4 (40368) Diagnoses Pure hypercholesterolemia E78.00 Benign essential hypertension I10 Elevated LFTs R79.89 Impaired fasting glucose R73.01 GERD without esophagitis K21.9 Elevated TSH R79.89 Vitamin D deficiency E55.9 Allergic rhinitis, unspecified seasonality, unspecified trigger J30.9 Allergic rhinitis trigger: unspecified Allergic rhinitis seasonality: unspecified Arthritis of facet joint of lumbar spine M47.816 Attention deficit hyperactivity disorder (ADHD), unspecified ADHD type F90.9 Attention deficit-hyperactivity disorder type: unspecified Insomnia, unspecified type G47.00 Insomnia type: unspecified Anxiety F41.9 Episode of recurrent major depressive disorder, unspecified depression episode severity F33.9 Depression Type: major depressive disorder Major depression recurrence: recurrent Active/Remission status: currently active Major depression episode severity: unspecified Obesity (BMI 30-39.9) E66.9 Additional Codes RONIT-7 Assessment Billing - RONIT-7 Assessment Tool: RONIT-7 Assessment 38519 ([id number]) Assessment & Plan Assessment & Plan (1) Pure hypercholesterolemia: Code(s): E78.00 - Pure hypercholesterolemia, unspecified Category: Medical Plan: Results of his labs done last week reviewed and discussed with patient - he is advised that his cholesterol numbers have improved further from previous Reinforced low cholesterol diet Continue Atorvastatin 40 mg QD Will recheck his labs and fasting lipids in 4 months for follow-up (2) Benign essential hypertension: Code(s): I10 - Essential (primary) hypertension Category: Medical Plan: Reinforced low sodium diet - goal is systolic BP of 120 mm or less Continue Valsartan-HCT 320-12.5 mg QD, Hydralazine 25 mg BID and Amlodipine 2.5 mg QD States that he has been out of his Amlodipine 2.5 mg for a couple of days now and this is likely the reason his BP is up today He is advised to try and get his Rx at the pharmacy today and start back on it A SAP Patient is reminded to continue monitoring his blood pressure regularly (3) Elevated LFTs: Code(s): R79.89 - Other specified abnormal findings of blood chemistry Category: Medical Plan: His LFTs have remained normal on his recent labs - were most likely related to his weight back when they went up Will recheck his LFTs in 4 months for follow-up (4) Impaired fasting glucose: Code(s): R73.01 - Impaired fasting glucose Category: Medical Plan: His HgbA1c was at 5.1% on his labs done last week (was previously at 5.3% a few months ago) Reinforced low calorie diet/exercise as tolerated Will recheck his HgbA1c and FBS in 4 months for follow up (5) GERD without esophagitis: Code(s): K21.9 - Gastro-esophageal reflux disease without esophagitis Category: Medical Plan: Dietary restrictions reinforced (6) Elevated TSH: Code(s): R79.89 - Other specified abnormal findings of blood chemistry Category: Medical Plan: His serum TSH is still slightly elevated but has improved from before on his recent labs; Free T4 level remains normal Patient is again clinically euthyroid at present and no intervention is indicated at this time Will continue to monitor his TFTs regularly (7) Vitamin D deficiency: Code(s): E55.9 - Vitamin D deficiency, unspecified Category: Medical Plan: Continue Vitamin D3 2000 units QD (8) Allergic rhinitis: Code(s): J30.9 - Allergic rhinitis, unspecified Category: Medical Qualifiers: Allergic rhinitis trigger: unspecified Allergic rhinitis seasonality: unspecified Qualified Code(s): J30.9 - Allergic rhinitis, unspecified Plan: Continue Fluticasone 50 mcg nasal spray QD PRN (9) Arthritis of facet joint of lumbar spine: Code(s): M47.816 - Spondylosis without myelopathy or radiculopathy, lumbar region Category: Medical Plan: Lumbar spine x-rays done last year revealed (+) multilevel facet arthritis in the lumbar spine Reinforced activity and weight-lifting restrictions Continue Meloxicam 15 mg QD with food PRN for pain Advised that if he feels that his low back pain is getting worse, options include referral to either physical therapy or pain management - patient states that he will call for referral when needed (10) Attention deficit hyperactivity disorder (ADHD): Code(s): F90.9 - Attention-deficit hyperactivity disorder, unspecified type Category: Medical Qualifiers: Attention deficit-hyperactivity disorder type: unspecified Qualified Code(s): F90.9 - Attention-deficit hyperactivity disorder, unspecified type Plan: Follow up with psychiatry as scheduled (11) Insomnia: Code(s): G47.00 - Insomnia, unspecified Category: Medical Qualifiers: Insomnia type: unspecified Qualified Code(s): G47.00 - Insomnia, unspecified Plan: Sleep hygiene reinforced Continue Trazodone 100 mg QD PRN (12) Anxiety: Code(s): F41.9 - Anxiety disorder, unspecified Category: Medical Plan: Continue Clonazepam 0.5 mg PRN (13) Depression: Code(s): F32.9 - Major depressive disorder, single episode, unspecified Category: Medical Qualifiers: Depression Type: major depressive disorder Major depression recurrence: recurrent Active/Remission status: currently active Major depression episode severity: unspecified Qualified Code(s): F33.9 - Major depressive disorder, recurrent, unspecified Plan: Continue Paroxetine 10 mg QD and Aripiprazole 10 mg Q HS; he is also on Topiramate 50 mg BID Follow up with psychiatry as scheduled (14) Obesity (BMI 30-39.9): Code(s): E66.9 - Obesity, unspecified Category: Medical Plan: Reinforced diet/exercise as tolerated/lose weight Plan Follow up in 4 months Orders: Orders Influenza [id number] Immunization Today Z23 - Encounter for immunization UA CC w/rflx Micro + Cult 4 Months R30.0 - Dysuria Hemoglobin A1c 4 Months E11.9 - Type 2 diabetes mellitus without complications Free T4 (Free Thyroxine) 4 Months R79.89 - Other specified abnormal findings of blood chemistry Complete Blood Count Auto Diff 4 Months D64.9 - Anemia, unspecified Comprehensive [place]. Panel Fast 4 Months E78.00 - Pure hypercholesterolemia, unspecified Lipid Panel 4 Months E78.00 - Pure hypercholesterolemia, unspecified Vitamin D 25-OH Total 4 Months E55.9 - Vitamin D deficiency, unspecified Thyroid Stimulating Hormone 4 Months R79.89 - Other specified abnormal findings of blood chemistry
[2023-12-12 11:06] VITALS: BP 136/88
== END 2023-12-12 11:17 | disposition home or self-care (01) ==
LOC: HO.HMCH 10:25
PROVIDERS: PCP Internal Medicine; Visit Provider Internal Medicine
DX: E78.00 Pure hypercholesterolemia, unspecified (principal); I10 Essential (primary) hypertension; F33.9 Major depressive disorder, recurrent, unspecified; R79.89 Other specified abnormal findings of blood chemistry; R73.01 Impaired fasting glucose; K21.9 Gastro-esophageal reflux disease without esophagitis; E55.9 Vitamin D deficiency, unspecified; J30.9 Allergic rhinitis, unspecified; M47.816 Spondylosis without myelopathy or radiculopathy, lumbar region; F90.9 Attention-deficit hyperactivity disorder, unspecified type; G47.00 Insomnia, unspecified

== ENCOUNTER → 2023-12-12 10:24 | Outpatient (BNVA) | payer OTHER, SELFPAY | PROVIDERS: PCP Internal Medicine; Visit Provider Internal Medicine | DX: E78.00 Pure hypercholesterolemia, unspecified (principal); I10 Essential (primary) hypertension; R79.89 Other specified abnormal findings of blood chemistry; R73.01 Impaired fasting glucose; K21.9 Gastro-esophageal reflux disease without esophagitis; E55.9 Vitamin D deficiency, unspecified; J30.9 Allergic rhinitis, unspecified; M47.816 Spondylosis without myelopathy or radiculopathy, lumbar region; F90.9 Attention-deficit hyperactivity disorder, unspecified type; G47.00 Insomnia, unspecified; F41.9 Anxiety disorder, unspecified | CPT/HCPCS: 96127; 99212 ==

== ENCOUNTER 2024-04-14 08:42 | Outpatient (REF) | payer OTHER, SELFPAY ==
[2024-04-14 09:27] LABS: MANUAL DIFF FLAG NO
[2024-04-14 09:50] LABS: Estimated Average Glucose 100 mg/dL; Hemoglobin A1C 126.2363 umol/L; Hemoglobin A1c % 5.1 % (<6.0)
[2024-04-14 10:04] LABS: Appearance Urine Clear; Color Urine Yellow; Glucose Urine UA Negative (Negative); Leukocyte Esterase Urine Negative (Negative); Nitrite Urine Negative (Negative); PH 5.5 (5.0-9.0); Specific Gravity - Urine 1.015 (1.005-1.025); Urine Blood Negative (Negative); Urine Ketones Negative (Negative); Urine Protein Negative (Neg-Trace)
[2024-04-14 10:05] LABS: Basophils Percent Auto 0.3 % (0-2); Eosinophils Absolute Auto 0.2 X10*3/uL (0.0-0.4); Eosinophils Percent Auto 2.2 % (0-4); Hematocrit 44.2 % (42.0-52.0); Hemoglobin 14.8 g/dl (14.0-18.0); Imm Gran Abs Auto 0.02 X10*3/uL (0.00-0.03); Imm Gran Pct Auto 0.3 % (0.0-0.4); Lymphocytes Absolute Auto 2.4 X10*3/uL (1.2-4.9); Lymphocytes Percent Auto 30.3 % (20-40); Mean Corpuscular HGB Conc 33.5 g/dl (31.0-36.0); Mean Corpuscular Hemoglobin 29.7 pg (27.0-33.0); Mean Corpuscular Volume 88.6 fL (80.0-98.0); Mean Platelet Volume 11.8 fL (9.4-12.4); Monocytes Absolute Auto 0.5 X10*3/uL (0.1-1.2); Monocytes Percent Auto 6.7 % (2-11); Neutrophils Absolute Auto 4.8 x10*3/uL (2.0-8.3); Neutrophils Percent Auto 60.2 % (45-73); Platelet Count 211 X10*3/uL (160-400); Red Blood Count 4.99 X10*6/uL (4.60-5.80); Red Cell Distribution Width 13.6 % (11.0-16.0); White Blood Count 7.9 X10*3/uL (4.8-10.8)
[2024-04-14 10:30] LABS: Alanine Aminotransferase 25 U/L (0-40); Alkaline Phosphatase 66 U/L (39-117); Anion Gap 10 (12-20); Aspartate Amino Transferase 24 U/L (5-37); Bilirubin Total 0.4 mg/dL (0.0-1.0); Blood Urea Nitrogen 10 mg/dL (9-16); Calcium 9.2 mg/dL (8.4-10.2); Carbon Dioxide 26 mmol/L (22-29); Chloride 109 mmol/L (96-108); Cholesterol 184 mg/dL (<200); Estimated Glomerular Filt Rate > 60; Glucose Fasting 90 mg/dL (60-99); HDL Cholesterol 45 mg/dL (>40); LDL Cholesterol Calculated 124 mg/dL (<100); Potassium 4.2 mmol/L (3.3-5.1); Sodium 141 mmol/L (135-145); Total Protein 7.9 g/dL (6.5-8.0); Triglycerides 79 mg/dL (<150)
[2024-04-14 10:45] LABS: Thyroid Stimulating Hormone 2.32 uIU/mL (0.32-4.0)
== END 2024-04-14 08:43 | disposition home or self-care (01) ==
LOC: HO.LAB 08:42
PROVIDERS: PCP Internal Medicine; Visit Provider Internal Medicine
DX: D64.9 Anemia, unspecified (principal); R30.0 Dysuria; E78.00 Pure hypercholesterolemia, unspecified; E11.9 Type 2 diabetes mellitus without complications; R79.89 Other specified abnormal findings of blood chemistry; E55.9 Vitamin D deficiency, unspecified
CPT/HCPCS: 36415; 80053; 80061; 81003; 82306; 83036; 84439; 84443; 85025

== ENCOUNTER 2024-04-17 09:29 | Outpatient (AMB) | payer OTHER, SELFPAY ==
[2024-04-17 10:03] VITALS: BP 154/94; PULSE 74; RESP 20; TEMP 37.1; O2SAT 98; BMI 39.6
--- NOTE | 2024-04-17 10:03 | A.OFFPC_ITS ---
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 Accompanied by: Self / Same As Patient Allergies No Known Allergies Allergy (Verified 04/22/24 10:52) Medication List - Last Reconciled 04/22/24 by SHANNAN Cerda amlodipine 5 mg PO DAILY aripiprazole 10 mg PO DAILY atorvastatin 40 mg PO DAILY 90 days cholecalciferol (vitamin D3) 50 mcg PO DAILY clonazepam 0.5 mg PO DAILY PRN hydralazine 25 mg PO BID 90 days meclizine 25 mg PO TID PRN meloxicam 15 mg PO DAILY PRN 30 days paroxetine HCl 10 mg PO DAILY topiramate 50 mg PO BID trazodone 100 mg PO BEDTIME PRN valsartan-hydrochlorothiazide 320-12.5 mg 1 tab PO DAILY Tobacco use date assessed: 04/17/24 Dental Screening Dental Screen Date: 04/17/24 Did you have a dental visit in the last 12 months?: No Did you have a dental problem in the last 6 months where you did not have access to dental care?: No HPI HTN, hyperlipidemia, IFG, anxiety HPI Details The patient is a 53-year-old male presenting for follow up appointment for chronic conditions Recent labs done couple of days ago-to discuss Patient blood pressure elevated 154/94 in office Patient reports that his blood pressure has been similar at home Discussed with patient about remove and salt from his diet; reports that he has been cutting back on drinking caffeine as well Patient denies headaches, blurry or vision changes Denies chest pain, shortness of breath, heart palpitation, or dizziness Denies abdominal pain nausea or vomiting and urinary symptoms HTN: will increased amlodipine to 5 mg daily from 2.5 mg [facility] Medical History Obesity (BMI 30-39.9) Dizziness Depression Anxiety Insomnia Attention deficit hyperactivity disorder (ADHD) Allergic rhinitis Morbid obesity with BMI of 40.0-44.9, adult Elevated TSH GERD without esophagitis Impaired fasting glucose Elevated LFTs Pure hypercholesterolemia Benign essential hypertension Vitamin D deficiency Surgical History No pertinent past surgical history Family History Father Hypertension CVD (cardiovascular disease) Mother Diabetes Brother No problems noted. Other Mental health problem Social History Housing: Apartment Alcohol intake: current Alcohol intake frequency: holidays/special occasions only Patient Tobacco Use Status: Never used Tobacco e-Cigarette/Vaping Use: Never Used Second Hand Smoke Exposure: Yes service: No Current occupational status: disabled Cognitive needs: No Hearing needs: No Vision needs: No Questionnaire PHQ-9 Over the last 2 weeks, how often have you been bothered by any of the following problems? 1. Little interest or pleasure in doing things: several days 2. Feeling down, depressed, or hopeless: nearly every day 3. Trouble falling or staying asleep, or sleeping too much: not at all 4. Feeling tired or having little energy: several days 5. Poor appetite or overeating: several days 6. Feeling bad about yourself - or that you are a failure or have let yourself or your family down: several days 7. Trouble concentrating on things, such as reading the newspaper or watching television: nearly every day 8. Moving or speaking so slowly that other people could have noticed. Or the opposite - being so fidgety or restless that you have been moving around a lot more than usual: nearly every day 9. Thoughts that you would be better off or of hurting yourself in some way: several days Total score: 14 Depression Screening Interpretation: Positive Depression Screening Done: Yes 54860 - PHQ-9 Billing: Yes Source: Developed by Drs. Ramón Alcala, Bernadette Bourgeois, Jd Mullins and colleagues, with an educational robel from [employer]. Thrive Questionnaire Date Thrive assessed: 12/12/23 I am a: Patient What is your living situation today?: I have a steady place to live Within the past 12 months, did the food you bought not last and you didn't have the money to get more?: Never true Within the past 12 months, did you worry whether your food would run out before you got money to buy more?: Never true Do you have trouble paying for medicines?: No Do you have trouble getting transportation to medical appointments?: No Do you have trouble paying your heating and electricity bill?: No Do you have trouble taking care of your child, family member or friend?: No Do you have trouble with day-to-day activities such as bathing, preparing meals, shopping, managing finances, etc.?: No Are you currently unemployed and looking for a job?: No Are you interested in more education?: No Please select the resources that you would like help with: None Currently or been in a relationship where the following occur: No concerns reported THRIVE Score: 0 AUDIT C Alcohol Use Questionnaire (AUDIT-C) 1. How often do you have a drink containing alcohol?: Never 3. How often do you have six or more drinks on one occasion?: Never Total Score: 0 Score Reviewed/Action Taken: Yes RONIT-7 AMB Questionnaire RONIT-7 Date RONIT - 7 assessed: 04/17/24 (patient states he is being treated for dep/anx) Feeling nervous, anxious, or on edge: 1 = Several days Not being able to stop or control worryin = Nearly every day Worrying too much about different things: 3 = Nearly every day Trouble relaxin = Several days Being so restless that it is hard to sit still: 1 = Several days Becoming easily annoyed or irritable: 2 = More than half the days Feeling afraid as if something awful might happen: 3 = Nearly every day Total RONIT-7 score (0-4 normal; 5-9 mild; 10-14 moderate; 15-21 severe): 14 Source: Developed by Drs. Ramón Alcala, Bernadette Bourgeois, Jd Mullins and colleagues, with an educational robel from [employer]. RONIT-7 Assessment Billing RONIT-7 Assessment Tool: RONIT-7 Assessment 93396 Review of Systems Const Denies headache(s) Eyes Denies loss of vision ENT Denies vertigo, Denies dizziness, Denies headache(s) and Denies sore throat Card Denies chest pain, Denies leg edema and Denies lightheadedness Resp Denies cough, Denies hemoptysis and Denies wheezing GI Denies abdominal pain, Denies melena, Denies constipation, Denies diarrhea and Denies vomiting Denies dysuria, Denies urinary frequency and Denies urinary urgency Musc Reports back pain (pain back on and off), Denies arthralgias, Denies joint swelling, Denies numbness and Denies tingling Neuro Denies Abnormal speech present, Denies behavioral changes, Denies vertigo, Denies dizziness, Denies headache(s), Denies loss of vision, Denies memory loss, Denies numbness and Denies tingling Psych Reports anxiety (hx controlled with tx), Denies behavioral changes, Reports depression (hx controlled with tx), Denies memory loss and Denies panic attacks Mohit/Lymph Denies easy bleeding and Denies easy bruising Aller/Immun Denies wheezing Physical exam (Primary Care) Vital Signs: Last Vital Signs Temp 98.7 F 04/17/24 10:03 Pulse 74 04/17/24 10:03 Resp 20 04/17/24 10:03 BP 154/94 H 04/17/24 10:03 Pulse Ox 98 04/17/24 10:03 Oxygen Delivery Method Room Air 04/17/24 10:03 BMI result Body Mass Index 39.6 Tobacco/Smoking Status: Tobacco use Status Tobacco use date assessed 04/17/24 04/17/24 10:16 Patient Tobacco Use Status Never used Tobacco 04/17/24 10:16 e-Cigarette/Vaping Use Never Used 04/17/24 10:16 PHQ-9: PHQ-9 Score PHQ-9: Total score 14 04/17/24 10:51 Depression Screening Interpretation: Positive Thrive Assessment: Date of Thrive Assessment Date Thrive assessed 12/12/23 04/17/24 10:16 Currently or been in a relationship where the following occur: No concerns reported Const General: healthy appearing, no acute distress, alert and awake Nutritional Appearance: well nourished Orientation/consciousness: oriented to person, oriented to place and oriented to time HENMT Ears: TM's normal bilaterally General nose exam: Normal nasal mucous membranes and turbinates present Eyes Conjunctivae: conjunctivae normal Sclerae: sclerae normal Pupils: Equal, round and reactive pupils present Neck Neck: Yes no lymphadenopathy and Yes no JVD Thyroid: Thyroid normal Carotids: no bruits Resp Effort & Inspection: normal respiratory effort and not tachypneic Auscultation: no crackles, no rales, no rhonchi and no wheezes Cardio Rate: regular rate Rhythm: regular rhythm Heart sounds: no murmurs and normal S1 and S2 GI Palpation (GI): Soft to palpation, nontender, no hepatomegaly and no splenomegaly Auscultation: normal bowel sounds General: Yes no CVA tenderness Back/Spine/Pelvis Back: no CVA tenderness Thoracic/Lumbar Spine: lumbar spinal tenderness (mild) Skin General skin exam: no rashes or lesions noted and dry skin Neuro General: oriented to person, oriented to place and oriented to time Cranial nerves: Yes Equal, round and reactive pupils present Speech: No Abnormal speech present Gait exam (Neuro): Normal gait present Motor exam (neuro): no tremor noted Extrem Right upper extremity: full ROM Left upper extremity: full ROM Right lower extremity: full ROM; no edema Left lower extremity: full ROM; no edema Psych Mental Status: mental status grossly normal Speech and movement: Normal speech and movement present Affect: normal affect Attitude: cooperative Thought process: Normal thought process present Results Reviewed Results Reviewed: Laboratory Tests 04/14/24 04/14/24 09:25 09:26 WBC 7.9 RBC 4.99 Hgb 14.8 Hct 44.2 Plt Count 211 Sodium 141 Potassium 4.2 D Chloride 109 H Carbon Dioxide 26 BUN 10 Creatinine 0.98 Estimated GFR > 60 Fasting Glucose 90 Hemoglobin A1c % 5.1 Calcium 9.2 AST 24 ALT 25 Alkaline Phosphatase 66 Triglycerides 79 LDL Cholesterol, Calc 124 H HDL Cholesterol 45 25-OH Vitamin D Total 25.0 L TSH 2.32 Free T4 1.10 Urine Color Yellow Urine Appearance Clear Urine pH 5.5 Ur Specific Lee 1.015 Urine Protein Negative Urine Glucose (UA) Negative Urine Ketones Negative Urine Blood Negative Urine Nitrite Negative Ur Leukocyte Esterase Negative Coding Level of Care Code Est Pt Level 4 (45231) Diagnoses Benign essential hypertension I10 Pure hypercholesterolemia E78.00 Vitamin D deficiency E55.9 Elevated LFTs R79.89 Impaired fasting glucose R73.01 GERD without esophagitis K21.9 Elevated TSH R79.89 Morbid obesity with BMI of 40.0-44.9, adult E66.01; Z68.41 Attention deficit hyperactivity disorder (ADHD), unspecified ADHD type F90.9 Attention deficit-hyperactivity disorder type: unspecified Insomnia, unspecified type G47.00 Insomnia type: unspecified Anxiety F41.9 Episode of recurrent major depressive disorder, unspecified depression episode severity F33.9 Depression Type: major depressive disorder Major depression recurrence: recurrent Active/Remission status: currently active Major depression episode severity: unspecified Arthritis of facet joint of lumbar spine M47.816 Allergic rhinitis, unspecified seasonality, unspecified trigger J30.9 Allergic rhinitis trigger: unspecified Allergic rhinitis seasonality: unspecified Additional Codes RONIT-7 Assessment Billing - RONIT-7 Assessment Tool: RONIT-7 Assessment 79034 ([id number]) PHQ-9 - 33543 - PHQ-9 Billing: Yes ([id number]) Time Spent (min) 39 Assessment & Plan Assessment & Plan (1) Benign essential hypertension: Code(s): I10 - Essential (primary) hypertension Category: Medical Plan: Encouraged DASH diet and activity as tolerated. Refrain from alcohol use and if you smoke, smoking cessation is strongly advised Patient reports that he has been trying to cut back on his caffeine intake We will increase amlodipine to 5 mg daily Continue valsartan-hydrochlorothiazide 320-12.5 mg daily, and hydralazine 25 mg b.i.d. (2) Pure hypercholesterolemia: Code(s): E78.00 - Pure hypercholesterolemia, unspecified Category: Medical Plan: LDL 124 Encouraged to exercise for at least 30 minutes a day/5 days a week Healthy eating discussed. Encouraged to eat fruits/vegetables, protein- fish/baked chicken, and to avoid salty/fried foods, sweets, caffeine and carbohydrates. Encouraged to increase water intake 6-8 glasses a day Continue atorvastatin 40 mg daily (3) Vitamin D deficiency: Code(s): E55.9 - Vitamin D deficiency, unspecified Category: Medical Plan: Corporate vitamin-D rich foods. Safe and appropriate exposure to sunlight can also help the body produce vitamin-D. Continue cholecalciferol 50 mcg daily (4) Elevated LFTs: Code(s): R79.89 - Other specified abnormal findings of blood chemistry Category: Medical Plan: AST 24 and ALT 25 We will continue to monitor (5) Impaired fasting glucose: Code(s): R73.01 - Impaired fasting glucose Category: Medical Plan: Fasting glucose 90 and A1c 5.1% Eat three balanced meals every day, 4 to 5 hours apart Avoid high-sugar foods and drinks (6) GERD without esophagitis: Code(s): K21.9 - Gastro-esophageal reflux disease without esophagitis Category: Medical Plan: Do not eat meals or drink carbonated beverages within 3 hr of bedtime Decrease the amount of fried, fatty, and spicy foods to decrease gastric acid production Raise the head of the bed using 4 to 6-inch blocks, especially if nocturnal symptoms are present Lose weight if indicated; avoid tight-fitting clothing, especially around the waist Avoid foods that relax the Lower esophageal sphincter (chocolate, peppermint, high-fat foods etc.,) (7) Elevated TSH: Code(s): R79.89 - Other specified abnormal findings of blood chemistry Category: Medical Plan: TSH 2.32 AND Free T4 1.10 Normal tests, we will continue to monitor (8) Morbid obesity with BMI of 40.0-44.9, adult: Code(s): E66.01 - Morbid (severe) obesity due to excess calories; Z68.41 - Body mass index [BMI] 40.0-44.9, adult Category: Medical Plan: Discussed macronutrients and cutting simple and flour based carbs from the diet and increasing vegetables and good proteins and fats. Discussed exercising 3-5 days a week for at least 30 minutes to help boost metabolism and maintain strong muscles to maintain weight. (9) Attention deficit hyperactivity disorder (ADHD): Code(s): F90.9 - Attention-deficit hyperactivity disorder, unspecified type Category: Medical Qualifiers: Attention deficit-hyperactivity disorder type: unspecified Qualified Code(s): F90.9 - Attention-deficit hyperactivity disorder, unspecified type Plan: Follow up with Psychiatry as scheduled (10) Insomnia: Code(s): G47.00 - Insomnia, unspecified Category: Medical Qualifiers: Insomnia type: unspecified Qualified Code(s): G47.00 - Insomnia, unspecified Plan: Sleep hygiene: Exercise regularly, but not within 4 hour of bedtime. Limit fluid intake and avoid large meals in the evening hours. Limit overall caffeine, tobacco, and alcohol intake; no night cap. Maintain a regular sleep- wake cycle without naps in the daytime. Lie down to sleep only when feeling sleepy; leave the bed if unable to fall asleep within 20 minutes; stay in bed for only the hours actually sleeping(but not less than 5 hour in 24 hours). (11) Anxiety: Code(s): F41.9 - Anxiety disorder, unspecified Category: Medical Plan: Encourage counseling or cognitive behavioral therapy Continue paroxetine 10 mg daily in clonazepam 0.5 mg daily p.r.n. Follow up with Psychiatry as scheduled (12) Depression: Code(s): F32.9 - Major depressive disorder, single episode, unspecified Category: Medical Qualifiers: Depression Type: major depressive disorder Major depression recurrence: recurrent Active/Remission status: currently active Major depression episode severity: unspecified Qualified Code(s): F33.9 - Major depressive disorder, recurrent, unspecified Plan: Encourage counseling or cognitive behavioral therapy Continue aripirazole 10 mg daily, paroxetine HCL 10 mg daily, and clonazepam 0.5 mg daily PRN FOLLOW UP WITH PSYCHIATRY SCHEDULED (13) Arthritis of facet joint of lumbar spine: Code(s): M47.816 - Spondylosis without myelopathy or radiculopathy, lumbar region Category: Medical Plan: Reinforced activity and weight-lifting restrictions Avoid aggravating activities that worsens symptoms Balance activity with rest to allow the spine to heal Apply heat or cold pack to reduce pain and inflammation Continue meloxicam 15 mg daily p.r.n. (14) Allergic rhinitis: Code(s): J30.9 - Allergic rhinitis, unspecified Category: Medical Qualifiers: Allergic rhinitis trigger: unspecified Allergic rhinitis seasonality: unspecified Qualified Code(s): J30.9 - Allergic rhinitis, unspecified Plan: Limit exposure to allergens Air purifiers and dust filters Air conditioner in house, especially where sleeping Plan Patient to follow up in 3 months Orders: Orders Comprehensive [employer]et. Panel Fast 3 Months E55.9 - Vitamin D deficiency, unspecified, E66.01 - Morbid (severe) obesity due to excess calories, E66.9 - Obesity, unspecified, E78.00 - Pure hypercholesterolemia, unspecified, F33.9 - Major depressive disorder, recurrent, unspecified, F41.9 - Anxiety disorder, unspecified, I10 - Essential (primary) hypertension, R79.89 - Other specified abnormal findings of blood chemistry, Z68.41 - Body mass index [BMI] 40.0-44.9, adult Lipid Panel 3 Months E55.9 - Vitamin D deficiency, unspecified, E66.01 - Morbid (severe) obesity due to excess calories, E66.9 - Obesity, unspecified, E78.00 - Pure hypercholesterolemia, unspecified, F33.9 - Major depressive disorder, recurrent, unspecified, F41.9 - Anxiety disorder, unspecified, I10 - Essential (primary) hypertension, R79.89 - Other specified abnormal findings of blood chemistry, Z68.41 - Body mass index [BMI] 40.0-44.9, adult Vitamin D 25-OH Total 3 Months E55.9 - Vitamin D deficiency, unspecified, E66.01 - Morbid (severe) obesity due to excess calories, E66.9 - Obesity, unspecified, E78.00 - Pure hypercholesterolemia, unspecified, F33.9 - Major depressive disorder, recurrent, unspecified, F41.9 - Anxiety disorder, unspecified, I10 - Essential (primary) hypertension, R79.89 - Other specified abnormal findings of blood chemistry, Z68.41 - Body mass index [BMI] 40.0-44.9, adult UA CC w/rflx Micro + Cult 3 Months E55.9 - Vitamin D deficiency, unspecified, E66.01 - Morbid (severe) obesity due to excess calories, E66.9 - Obesity, unspecified, E78.00 - Pure hypercholesterolemia, unspecified, F33.9 - Major depressive disorder, recurrent, unspecified, F41.9 - Anxiety disorder, unspecified, I10 - Essential (primary) hypertension, R79.89 - Other specified abnormal findings of blood chemistry, Z68.41 - Body mass index [BMI] 40.0-44.9, adult TSH reflex Free T4 3 Months E55.9 - Vitamin D deficiency, unspecified, E66.01 - Morbid (severe) obesity due to excess calories, E66.9 - Obesity, unspecified, E78.00 - Pure hypercholesterolemia, unspecified, F33.9 - Major depressive disorder, recurrent, unspecified, F41.9 - Anxiety disorder, unspecified, I10 - Essential (primary) hypertension, R79.89 - Other specified abnormal findings of blood chemistry, Z68.41 - Body mass index [BMI] 40.0-44.9, adult Hemoglobin A1c 3 Months E55.9 - Vitamin D deficiency, unspecified, E66.01 - Morbid (severe) obesity due to excess calories, E66.9 - Obesity, unspecified, E78.00 - Pure hypercholesterolemia, unspecified, F33.9 - Major depressive disorder, recurrent, unspecified, F41.9 - Anxiety disorder, unspecified, I10 - Essential (primary) hypertension, R79.89 - Other specified abnormal findings of blood chemistry, Z68.41 - Body mass index [BMI] 40.0-44.9, adult Complete Blood Count Auto Diff 3 Months E55.9 - Vitamin D deficiency, unspecified, E66.01 - Morbid (severe) obesity due to excess calories, E66.9 - Obesity, unspecified, E78.00 - Pure hypercholesterolemia, unspecified, F33.9 - Major depressive disorder, recurrent, unspecified, F41.9 - Anxiety disorder, unspecified, I10 - Essential (primary) hypertension, R79.89 - Other specified abnormal findings of blood chemistry, Z68.41 - Body mass index [BMI] 40.0-44.9, adult Glucose Fasting 3 Months E55.9 - Vitamin D deficiency, unspecified, E66.01 - Morbid (severe) obesity due to excess calories, E66.9 - Obesity, unspecified, E78.00 - Pure hypercholesterolemia, unspecified, F33.9 - Major depressive disorder, recurrent, unspecified, F41.9 - Anxiety disorder, unspecified, I10 - Essential (primary) hypertension, R79.89 - Other specified abnormal findings of blood chemistry, Z68.41 - Body mass index [BMI] 40.0-44.9, adult Medications: New amlodipine 5 mg PO DAILY 60 tabs 3RF Discontinued amlodipine Discontinued Reason: Doctor's Order 2.5 mg PO DAILY 90 days 90 tabs 1RF
== END 2024-04-17 10:58 | disposition home or self-care (01) ==
LOC: HO.HMCH 09:30
PROVIDERS: PCP Internal Medicine
DX: I10 Essential (primary) hypertension (principal); E66.01 Morbid (severe) obesity due to excess calories; Z68.41 Body mass index [BMI] 40.0-44.9, adult; F33.9 Major depressive disorder, recurrent, unspecified; E78.00 Pure hypercholesterolemia, unspecified; E55.9 Vitamin D deficiency, unspecified; R79.89 Other specified abnormal findings of blood chemistry; R73.01 Impaired fasting glucose; K21.9 Gastro-esophageal reflux disease without esophagitis; F90.9 Attention-deficit hyperactivity disorder, unspecified type; G47.00 Insomnia, unspecified; F41.9 Anxiety disorder, unspecified

== ENCOUNTER → 2024-04-17 09:29 | Outpatient (BNVA) | payer OTHER, SELFPAY | PROVIDERS: PCP Internal Medicine | DX: I10 Essential (primary) hypertension (principal); E78.00 Pure hypercholesterolemia, unspecified; E55.9 Vitamin D deficiency, unspecified; R79.89 Other specified abnormal findings of blood chemistry; R73.01 Impaired fasting glucose; K21.9 Gastro-esophageal reflux disease without esophagitis; E66.01 Morbid (severe) obesity due to excess calories; Z68.41 Body mass index [BMI] 40.0-44.9, adult; F90.9 Attention-deficit hyperactivity disorder, unspecified type; G47.00 Insomnia, unspecified; F41.9 Anxiety disorder, unspecified; F33.9 Major depressive disorder, recurrent, unspecified; M47.816 Spondylosis without myelopathy or radiculopathy, lumbar region; J30.9 Allergic rhinitis, unspecified; Z71.3 Dietary counseling and surveillance | CPT/HCPCS: 96127; 99212 ==

== ENCOUNTER 2024-07-14 08:33 | Outpatient (REF) | payer OTHER, SELFPAY ==
[2024-07-14 08:54] LABS: MANUAL DIFF FLAG NO
[2024-07-14 09:37] LABS: Appearance Urine Clear; Color Urine Yellow; Glucose Urine UA Negative (Negative); Leukocyte Esterase Urine Negative (Negative); Nitrite Urine Negative (Negative); Specific Gravity - Urine 1.025 (1.005-1.025); Urine Blood Negative (Negative); Urine Ketones Negative (Negative); Urine Protein Negative (Neg-Trace)
[2024-07-14 09:37] LABS: Basophils Percent Auto 0.3 % (0-2); Eosinophils Absolute Auto 0.1 X10*3/uL (0.0-0.4); Eosinophils Percent Auto 1.6 % (0-4); Hematocrit 42.8 % (42.0-52.0); Hemoglobin 14.6 g/dl (14.0-18.0); Imm Gran Abs Auto 0.04 X10*3/uL (0.00-0.03); Imm Gran Pct Auto 0.5 % (0.0-0.4); Lymphocytes Absolute Auto 1.9 X10*3/uL (1.2-4.9); Lymphocytes Percent Auto 25.3 % (20-40); Mean Corpuscular HGB Conc 34.1 g/dl (31.0-36.0); Mean Corpuscular Hemoglobin 30.5 pg (27.0-33.0); Mean Corpuscular Volume 89.5 fL (80.0-98.0); Mean Platelet Volume 11.7 fL (9.4-12.4); Monocytes Absolute Auto 0.5 X10*3/uL (0.1-1.2); Neutrophils Absolute Auto 4.9 x10*3/uL (2.0-8.3); Neutrophils Percent Auto 65.3 % (45-73); Platelet Count 209 X10*3/uL (160-400); Red Blood Count 4.78 X10*6/uL (4.60-5.80); Red Cell Distribution Width 14.1 % (11.0-16.0); White Blood Count 7.5 X10*3/uL (4.8-10.8)
[2024-07-14 09:55] LABS: Estimated Average Glucose 100 mg/dL; Hemoglobin A1c % 5.1 % (<6.0)
[2024-07-14 10:10] LABS: Alanine Aminotransferase 26 U/L (0-40); Albumin Level 4.1 g/dL (3.5-5.0); Alkaline Phosphatase 55 U/L (39-117); Anion Gap 10 (12-20); Aspartate Amino Transferase 27 U/L (5-37); Bilirubin Total 0.5 mg/dL (0.0-1.0); Blood Urea Nitrogen 13 mg/dL (9-16); Calcium 9.2 mg/dL (8.4-10.2); Carbon Dioxide 29 mmol/L (22-29); Chloride 109 mmol/L (96-108); Cholesterol 206 mg/dL (<200); Estimated Glomerular Filt Rate > 60; Glucose Fasting 89 mg/dL (60-99); HDL Cholesterol 49 mg/dL (>40); LDL Cholesterol Calculated 133 mg/dL (<100); Potassium 4.2 mmol/L (3.3-5.1); Sodium 144 mmol/L (135-145); Total Protein 7.4 g/dL (6.5-8.0); Triglycerides 122 mg/dL (<150)
[2024-07-14 10:28] LABS: TSH reflex Free T4 4.09 uIU/mL (0.32-4.0); Vitamin D 25-OH Total 22.6 ng/mL (>30)
[2024-07-14 11:01] LABS: Free T4 (Free Thyroxine) 0.93 ng/dL (0.71-1.85)
== END 2024-07-14 08:34 | disposition home or self-care (01) ==
LOC: HO.LAB 08:33
DX: F33.9 Major depressive disorder, recurrent, unspecified (principal); F41.9 Anxiety disorder, unspecified; E66.01 Morbid (severe) obesity due to excess calories; Z68.41 Body mass index [BMI] 40.0-44.9, adult; I10 Essential (primary) hypertension; E55.9 Vitamin D deficiency, unspecified; E78.00 Pure hypercholesterolemia, unspecified; R79.89 Other specified abnormal findings of blood chemistry
CPT/HCPCS: 36415; 80053; 80061; 81003; 82306; 83036; 84439; 84443; 85025

== ENCOUNTER 2024-07-19 10:08 | Outpatient (AMB) | payer OTHER, SELFPAY ==
[2024-07-19 10:25] VITALS: BP 142/102; PULSE 60; RESP 16; TEMP 37; O2SAT 98; BMI 40.7
--- NOTE | 2024-07-19 10:25 | A.OFFPC_ITS ---
Vital Signs 07/19/24 10:25 07/19/24 11:10 Height 5 ft 6 in Weight 252 lb BMI 40.7 BP 142/102 H 156/88 H Blood Pressure Location Lt brachial Lt brachial Position Sitting Sitting Respiration 16 Pulse 60 Pulse Source Pulse Oximeter Temp 98.6 F Temp Source Oral Pulse Oximetry (%) 98 Oxygen Delivery Method Room Air Intake Visit Reasons: hld/htn Adult Education Manager Required: No Accompanied by: Self / Same As Patient Allergies No Known Allergies Allergy (Verified 07/19/24 11:02) Medication List - Last Reconciled 07/19/24 by SHANNAN Cerda amlodipine 5 mg PO DAILY aripiprazole 10 mg PO DAILY atorvastatin 40 mg PO DAILY 90 days cholecalciferol (vitamin D3) 50 mcg PO DAILY clonazepam 0.5 mg PO DAILY PRN hydralazine 25 mg PO BID 90 days meclizine 25 mg PO TID PRN meloxicam 15 mg PO DAILY PRN 30 days paroxetine HCl 40 mg PO DAILY topiramate 50 mg PO BID trazodone 100 mg PO BEDTIME PRN valsartan-hydrochlorothiazide 320-12.5 mg 1 tab PO DAILY Tobacco use date assessed: 07/19/24 Dental Screening Dental Screen Date: 07/19/24 Did you have a dental visit in the last 12 months?: No Did you have a dental problem in the last 6 months where you did not have access to dental care?: No Was dental information given to patient?: No HPI hld/htn HPI Details The patient is a 53-year-old male presenting with elevated blood pressure. He reports longstanding issues with hypertension management, despite adherence to his medication regimen, including hydralazine 25 mg taken twice daily. He has recently observed persistently high home blood pressure readings. He has noted a transition to a more sedentary lifestyle, correlating with a 7- pound weight gain, attributed to decreased physical activity. He admits to dietary habits that include items with high cholesterol content. He experiences symptoms of anxiety and depression that may contribute to his limited exercise and weight gain. His cholesterol levels have shown an upward trend, and although there is leg pain associated, likely from his cholesterol medication, he is cautious about increasing the dosage due to potential muscle aches. The patient reports past sleep disturbances but currently maintains a consistent sleep schedule. He denies an official diagnosis of sleep apnea. To better assess factors contributing to hypertension, a home-based sleep study is indicated. [facility] Medical History Obesity (BMI 30-39.9) Dizziness Depression Anxiety Insomnia Attention deficit hyperactivity disorder (ADHD) Allergic rhinitis Morbid obesity with BMI of 40.0-44.9, adult Elevated TSH GERD without esophagitis Impaired fasting glucose Elevated LFTs Pure hypercholesterolemia Benign essential hypertension Vitamin D deficiency Surgical History No pertinent past surgical history Family History Father Hypertension CVD (cardiovascular disease) Mother Diabetes Brother No problems noted. Other Mental health problem Social History Housing: Apartment Alcohol intake: current Alcohol intake frequency: holidays/special occasions only Patient Tobacco Use Status: Never used Tobacco e-Cigarette/Vaping Use: Never Used Second Hand Smoke Exposure: Yes service: No Current occupational status: disabled Cognitive needs: No Hearing needs: No Vision needs: No Questionnaire PHQ-9 Over the last 2 weeks, how often have you been bothered by any of the following problems? 1. Little interest or pleasure in doing things: several days 2. Feeling down, depressed, or hopeless: several days 3. Trouble falling or staying asleep, or sleeping too much: several days 4. Feeling tired or having little energy: several days 5. Poor appetite or overeating: not at all 6. Feeling bad about yourself - or that you are a failure or have let yourself or your family down: several days 7. Trouble concentrating on things, such as reading the newspaper or watching television: several days 8. Moving or speaking so slowly that other people could have noticed. Or the opposite - being so fidgety or restless that you have been moving around a lot more than usual: several days 9. Thoughts that you would be better off or of hurting yourself in some way: not at all Total score: 7 Depression Screening Interpretation: Positive Depression Screening Done: Yes Source: Developed by Drs. Ramón Alcala, Bernadette B.Jd Ceja and colleagues, with an educational robel from [employer]. Thrive Questionnaire Date Thrive assessed: 07/19/24 I am a: Patient What is your living situation today?: I have a steady place to live Within the past 12 months, did the food you bought not last and you didn't have the money to get more?: Never true Within the past 12 months, did you worry whether your food would run out before you got money to buy more?: Never true Do you have trouble paying for medicines?: No Do you have trouble getting transportation to medical appointments?: No Do you have trouble paying your heating and electricity bill?: No Do you have trouble taking care of your child, family member or friend?: No Do you have trouble with day-to-day activities such as bathing, preparing meals, shopping, managing finances, etc.?: No Are you currently unemployed and looking for a job?: No Are you interested in more education?: No Please select the resources that you would like help with: None Currently or been in a relationship where the following occur: No concerns reported THRIVE Score: 0 AUDIT C Alcohol Use Questionnaire (AUDIT-C) 1. How often do you have a drink containing alcohol?: Never Total Score: 0 Score Reviewed/Action Taken: No RONIT-7 AMB Questionnaire RONIT-7 Date RONIT - 7 assessed: 07/19/24 (patient states he is being treated for dep/anx) Feeling nervous, anxious, or on edge: 1 = Several days Not being able to stop or control worryin = Several days Worrying too much about different things: 1 = Several days Trouble relaxin = More than half the days Being so restless that it is hard to sit still: 2 = More than half the days Becoming easily annoyed or irritable: 1 = Several days Feeling afraid as if something awful might happen: 2 = More than half the days Total RONIT-7 score (0-4 normal; 5-9 mild; 10-14 moderate; 15-21 severe): 10 Source: Developed by Drs. Ramón Alcala, Jd Nguyen and colleagues, with an educational robel from [employer]. Review of Systems Const Reports daytime sleepiness, Reports fatigue, Denies headache(s) and Reports snoring Eyes Denies loss of vision ENT Denies vertigo, Denies dizziness, Denies headache(s) and Denies sore throat Card Denies chest pain, Denies leg edema and Denies lightheadedness Resp Denies cough, Denies hemoptysis, Reports snoring and Denies wheezing GI Denies abdominal pain, Denies melena, Denies constipation, Denies diarrhea and Denies vomiting Denies dysuria, Denies urinary frequency and Denies urinary urgency Musc Reports back pain (chronic), Denies arthralgias, Denies joint swelling, Denies numbness and Denies tingling Neuro Denies Abnormal speech present, Denies behavioral changes, Denies vertigo, Denies dizziness, Denies headache(s), Denies loss of vision, Denies memory loss, Denies numbness and Denies tingling Psych Reports anxiety (hx control on current treatment), Denies behavioral changes, Reports depression (hx controlled on current treatment), Denies memory loss and Denies panic attacks Endo Reports fatigue Mohit/Lymph Denies easy bleeding and Denies easy bruising Aller/Immun Denies wheezing Physical exam (Primary Care) Vital Signs: Last Vital Signs Temp 98.6 F 07/19/24 10:25 Pulse 60 07/19/24 10:25 Resp 16 07/19/24 10:25 BP 156/88 H 07/19/24 11:10 Pulse Ox 98 07/19/24 10:25 Oxygen Delivery Method Room Air 07/19/24 10:25 BMI result Body Mass Index 40.7 Tobacco/Smoking Status: Tobacco use Status Tobacco use date assessed 07/19/24 07/19/24 10:37 Patient Tobacco Use Status Never used Tobacco 07/19/24 10:37 e-Cigarette/Vaping Use Never Used 07/19/24 10:37 PHQ-9: PHQ-9 Score PHQ-9: Total score 7 08/05/24 03:11 Depression Screening Interpretation: Positive Thrive Assessment: Date of Thrive Assessment Date Thrive assessed 07/19/24 07/19/24 10:37 Currently or been in a relationship where the following occur: No concerns reported Const General: healthy appearing, no acute distress, alert and awake Nutritional Appearance: well nourished Orientation/consciousness: oriented to person, oriented to place and oriented to time HENMT Ears: TM's normal bilaterally General nose exam: Normal nasal mucous membranes and turbinates present Eyes Conjunctivae: conjunctivae normal Sclerae: sclerae normal Pupils: Equal, round and reactive pupils present Neck Neck: Yes no lymphadenopathy and Yes no JVD Thyroid: Thyroid normal Carotids: no bruits Resp Effort & Inspection: normal respiratory effort and not tachypneic Auscultation: no crackles, no rales, no rhonchi and no wheezes Cardio Rate: regular rate Rhythm: regular rhythm Heart sounds: no murmurs and normal S1 and S2 GI Palpation (GI): Soft to palpation, nontender, no hepatomegaly and no splenomegaly Auscultation: normal bowel sounds General: Yes no CVA tenderness Back/Spine/Pelvis Back: no CVA tenderness Thoracic/Lumbar Spine: No lumbar spinal tenderness Skin General skin exam: no rashes or lesions noted and dry skin Neuro General: oriented to person, oriented to place and oriented to time Cranial nerves: Yes Equal, round and reactive pupils present Speech: No Abnormal speech present Gait exam (Neuro): Normal gait present Motor exam (neuro): no tremor noted Extrem Right upper extremity: full ROM Left upper extremity: full ROM Right lower extremity: full ROM; no edema Left lower extremity: full ROM; no edema Psych Mental Status: mental status grossly normal Speech and movement: Normal speech and movement present Affect: normal affect Attitude: cooperative Thought process: Normal thought process present Results Reviewed Results Reviewed: Laboratory Tests 07/14/24 07/14/24 08:49 08:52 WBC 7.5 RBC 4.78 Hgb 14.6 Hct 42.8 MCV 89.5 MCH 30.5 MCHC 34.1 RDW 14.1 Plt Count 209 MPV 11.7 Sodium 144 Potassium 4.2 Chloride 109 H Carbon Dioxide 29 Anion Gap 10 L BUN 13 Creatinine 0.97 Estimated GFR > 60 Fasting Glucose 89 Estimat Average Glucose 100 Hemoglobin A1c % 5.1 Calcium 9.2 Total Bilirubin 0.5 AST 27 ALT 26 Alkaline Phosphatase 55 Total Protein 7.4 Albumin 4.1 Triglycerides 122 Cholesterol 206 H LDL Cholesterol, Calc 133 H HDL Cholesterol 49 25-OH Vitamin D Total 22.6 L TSH 4.09 H Free T4 0.93 Urine Color Yellow Urine Appearance Clear Urine pH 5.0 Ur Specific [place] 1.025 Urine Protein Negative Urine Glucose (UA) Negative Urine Ketones Negative Urine Blood Negative Urine Nitrite Negative Ur Leukocyte Esterase Negative Coding Level of Care Code Est Pt Level 4 (11638) Diagnoses Benign essential hypertension I10 Pure hypercholesterolemia E78.00 Vitamin D deficiency E55.9 Elevated LFTs R79.89 GERD without esophagitis K21.9 Elevated TSH R79.89 Morbid obesity with BMI of 40.0-44.9, adult E66.01; Z68.41 Attention deficit hyperactivity disorder (ADHD), unspecified ADHD type F90.9 Attention deficit-hyperactivity disorder type: unspecified Insomnia, unspecified type G47.00 Insomnia type: unspecified Anxiety F41.9 Episode of recurrent major depressive disorder, unspecified depression episode severity F33.9 Active/Remission status: currently active Depression Type: major depressive disorder Major depression episode severity: unspecified Major depression recurrence: recurrent 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 Refrain from alcohol use and if you smoke, smoking cessation is strongly advised Patient reports that he has been trying to cut back on his caffeine intake Amlodipine increase to 10 mg daily Sleep study ordered Continue valsartan-hydrochlorothiazide 320-12.5 mg daily, and hydralazine 25 mg b.i.d. (2) Pure hypercholesterolemia: Code(s): E78.00 - Pure hypercholesterolemia, unspecified Category: Medical Plan: LDL 133 increased from 124. The patient also gained 7 lbs, he was cautioned about his cholesterol trending the wrong direction Encouraged to exercise for at least 30 minutes a day/5 days a week Healthy eating discussed. Encouraged to eat fruits/vegetables, protein-f bryson/baked chicken, and to avoid salty/fried foods, sweets, caffeine and carbohydrates. Encouraged to increase water intake 6-8 glasses a day Continue atorvastatin 40 mg daily (3) Vitamin D deficiency: Code(s): E55.9 - Vitamin D deficiency, unspecified Category: Medical Plan: Incoporate vitamin-D rich foods. Safe and appropriate exposure to sunlight can also help the body produce vitamin-D. Continue cholecalciferol 50 mcg daily (4) Elevated LFTs: Code(s): R79.89 - Other specified abnormal findings of blood chemistry Category: Medical Plan: Again his liver enzymes came back normal We will continue to monitor (5) GERD without esophagitis: Code(s): K21.9 - Gastro-esophageal reflux disease without esophagitis Category: Medical Plan: Do not eat meals or drink carbonated beverages within 3 hr of bedtime Decrease the amount of fried, fatty, and spicy foods to decrease gastric acid production Raise the head of the bed using 4 to 6-inch blocks, especially if nocturnal symptoms are present Lose weight if indicated; avoid tight-fitting clothing, especially around the waist Avoid foods that relax the Lower esophageal sphincter (chocolate, peppermint, high-fat foods etc.,) (6) Elevated TSH: Code(s): R79.89 - Other specified abnormal findings of blood chemistry Category: Medical Plan: euthyroid will continue to monitor (7) Morbid obesity with BMI of 40.0-44.9, adult: Code(s): E66.01 - Morbid (severe) obesity due to excess calories; Z68.41 - Body mass index [BMI] 40.0-44.9, adult Category: Medical Plan: Discussed macronutrients and cutting simple and flour based carbs from the diet and increasing vegetables and good proteins and fats. Discussed exercising 3-5 days a week for at least 30 minutes to help boost metabolism and maintain strong muscles to maintain weight. (8) Attention deficit hyperactivity disorder (ADHD): Code(s): F90.9 - Attention-deficit hyperactivity disorder, unspecified type Category: Medical Qualifiers: Attention deficit-hyperactivity disorder type: unspecified Qualified Code(s): F90.9 - Attention-deficit hyperactivity disorder, unspecified type Plan: Follow up with Psychiatry as scheduled (9) Insomnia: Code(s): G47.00 - Insomnia, unspecified Category: Medical Qualifiers: Insomnia type: unspecified Qualified Code(s): G47.00 - Insomnia, unspecified Plan: Sleep hygiene: Exercise regularly, but not within 4 hour of bedtime. Limit fluid intake and avoid large meals in the evening hours. Limit overall caffeine, tobacco, and alcohol intake; no night cap. Maintain a regular sleep- wake cycle without naps in the daytime. Lie down to sleep only when feeling sleepy; leave the bed if unable to fall asleep within 20 minutes; stay in bed for only the hours actually sleeping(but not less than 5 hour in 24 hours). Continue trazodone 100 mg at bedtime p.r.n. (10) Anxiety: Code(s): F41.9 - Anxiety disorder, unspecified Category: Medical Plan: Encourage counseling or cognitive behavioral therapy Continue paroxetine 10 mg daily in clonazepam 0.5 mg daily p.r.n. Follow up with Psychiatry as scheduled (11) Depression: Code(s): F32.9 - Major depressive disorder, single episode, unspecified Category: Medical Qualifiers: Active/Remission status: currently active Depression Type: major depressive disorder Major depression episode severity: unspecified Major depression recurrence: recurrent Qualified Code(s): F33.9 - Major depressive disorder, recurrent, unspecified Plan: Encourage counseling or cognitive behavioral therapy Continue aripirazole 10 mg daily, paroxetine HCL 10 mg daily, and clonazepam 0.5 mg daily PRN FOLLOW UP WITH PSYCHIATRY SCHEDULED (12) Arthritis of facet joint of lumbar spine: Code(s): M47.816 - Spondylosis without myelopathy or radiculopathy, lumbar region Category: Medical Plan: Reinforced activity and weight-lifting restrictions Avoid aggravating activities that worsens symptoms Balance activity with rest to allow the spine to heal Apply heat or cold pack to reduce pain and inflammation Continue meloxicam 15 mg daily p.r.n. (13) Allergic rhinitis: Code(s): J30.9 - Allergic rhinitis, unspecified Category: Medical Qualifiers: Allergic rhinitis seasonality: unspecified Allergic rhinitis trigger: unspecified Qualified Code(s): J30.9 - Allergic rhinitis, unspecified Plan: Limit exposure to allergens Air purifiers and dust filters Air conditioner in house, especially where sleeping (14) Snores: Code(s): R06.83 - Snoring Category: Medical Plan: Sleep study ordered (15) Daytime sleepiness: Code(s): R40.0 - Somnolence Category: Medical Plan: Same as above (16) Fatigue: Code(s): R53.83 - Other fatigue Category: Medical Qualifiers: Fatigue type: unspecified Qualified Code(s): R53.83 - Other fatigue Plan: Same as above Plan Patient to follow up in 3 months Orders: Orders RT home sleep study 3 Months I99.8 - Other disorder of circulatory system, R06.83 - Snoring, R53.83 - Other fatigue, E66.9 - Obesity, unspecified, H81.10 - Benign paroxysmal vertigo, unspecified ear, F33.9 - Major depressive disorder, recurrent, unspecified, R42 - Dizziness and giddiness, F41.9 - Anxiety disorder, unspecified, G47.00 - Insomnia, unspecified, K21.9 - Gastro-esophageal reflux disease without esophagitis, E78.00 - Pure hypercholesterolemia, unspecified, I10 - Essential (primary) hypertension, E55.9 - Vitamin D deficiency, unspecified Lipid Panel 3 Months E66.9 - Obesity, unspecified, H81.10 - Benign paroxysmal vertigo, unspecified ear, F33.9 - Major depressive disorder, recurrent, unspecified, R42 - Dizziness and giddiness, F41.9 - Anxiety disorder, unspecified, G47.00 - Insomnia, unspecified, K21.9 - Gastro-esophageal reflux disease without esophagitis, E78.00 - Pure hypercholesterolemia, unspecified, I10 - Essential (primary) hypertension, E55.9 - Vitamin D deficiency, unspecified Vitamin D 25-OH Total 3 Months E66.9 - Obesity, unspecified, H81.10 - Benign paroxysmal vertigo, unspecified ear, F33.9 - Major depressive disorder, recurrent, unspecified, R42 - Dizziness and giddiness, F41.9 - Anxiety disorder, unspecified, G47.00 - Insomnia, unspecified, K21.9 - Gastro-esophageal reflux disease without esophagitis, E78.00 - Pure hypercholesterolemia, unspecified, I10 - Essential (primary) hypertension, E55.9 - Vitamin D deficiency, unspecified UA CC w/rflx Micro + Cult 3 Months E66.9 - Obesity, unspecified, H81.10 - Benig n paroxysmal vertigo, unspecified ear, F33.9 - Major depressive disorder, recurrent, unspecified, R42 - Dizziness and giddiness, F41.9 - Anxiety disorder, unspecified, G47.00 - Insomnia, unspecified, K21.9 - Gastro-esophageal reflux disease without esophagitis, E78.00 - Pure hypercholesterolemia, unspecified, I10 - Essential (primary) hypertension, E55.9 - Vitamin D deficiency, unspecified TSH reflex Free T4 3 Months E66.9 - Obesity, unspecified, H81.10 - Benign paroxysmal vertigo, unspecified ear, F33.9 - Major depressive disorder, recurrent, unspecified, R42 - Dizziness and giddiness, F41.9 - Anxiety disorder, unspecified, G47.00 - Insomnia, unspecified, K21.9 - Gastro-esophageal reflux disease without esophagitis, E78.00 - Pure hypercholesterolemia, unspecified, I10 - Essential (primary) hypertension, E55.9 - Vitamin D deficiency, unspecified Free T4 (Free Thyroxine) 3 Months E66.9 - Obesity, unspecified, H81.10 - Benign paroxysmal vertigo, unspecified ear, F33.9 - Major depressive disorder, recurrent, unspecified, R42 - Dizziness and giddiness, F41.9 - Anxiety disorder, unspecified, G47.00 - Insomnia, unspecified, K21.9 - Gastro-esophageal reflux disease without esophagitis, E78.00 - Pure hypercholesterolemia, unspecified, I10 - Essential (primary) hypertension, E55.9 - Vitamin D deficiency, unspecified Comprehensive [place]. Panel Fast 3 Months E66.9 - Obesity, unspecified, H81.10 - Benign paroxysmal vertigo, unspecified ear, F33.9 - Major depressive disorder, recurrent, unspecified, R42 - Dizziness and giddiness, F41.9 - Anxiety disorder, unspecified, G47.00 - Insomnia, unspecified, K21.9 - Gastro-esophageal reflux disease without esophagitis, E78.00 - Pure hypercholesterolemia, unspecified, I10 - Essential (primary) hypertension, E55.9 - Vitamin D deficiency, unspecified Complete Blood Count Auto Diff 3 Months E66.9 - Obesity, unspecified, H81.10 - Benign paroxysmal vertigo, unspecified ear, F33.9 - Major depressive disorder, recurrent, unspecified, R42 - Dizziness and giddiness, F41.9 - Anxiety disorder, unspecified, G47.00 - Insomnia, unspecified, K21.9 - Gastro-esophageal reflux disease without esophagitis, E78.00 - Pure hypercholesterolemia, unspecified, I10 - Essential (primary) hypertension, E55.9 - Vitamin D deficiency, unspecified Medications: New valsartan-hydrochlorothiazide 320-25 mg 1 tab PO DAILY 90 tabs 3RF amlodipine 10 mg PO DAILY 90 tabs 3RF Discontinued valsartan-hydrochlorothiazide 320-12.5 mg Discontinued Reason: Doctor's Order 1 tab PO DAILY 90 tabs 3RF
[2024-07-19 11:10] VITALS: BP 156/88
== END 2024-07-19 11:31 | disposition home or self-care (01) ==
LOC: HO.HMCH 10:08
PROVIDERS: PCP Internal Medicine
DX: I10 Essential (primary) hypertension (principal); E66.01 Morbid (severe) obesity due to excess calories; Z68.41 Body mass index [BMI] 40.0-44.9, adult; E78.00 Pure hypercholesterolemia, unspecified; E55.9 Vitamin D deficiency, unspecified; R79.89 Other specified abnormal findings of blood chemistry; K21.9 Gastro-esophageal reflux disease without esophagitis; F90.9 Attention-deficit hyperactivity disorder, unspecified type; G47.00 Insomnia, unspecified; F41.9 Anxiety disorder, unspecified; F33.9 Major depressive disorder, recurrent, unspecified; M47.816 Spondylosis without myelopathy or radiculopathy, lumbar region

== ENCOUNTER → 2024-07-19 10:08 | Outpatient (BNVA) | payer OTHER, SELFPAY | PROVIDERS: PCP Internal Medicine | DX: I10 Essential (primary) hypertension (principal); E78.5 Hyperlipidemia, unspecified; E78.00 Pure hypercholesterolemia, unspecified; E55.9 Vitamin D deficiency, unspecified; R79.89 Other specified abnormal findings of blood chemistry; K21.9 Gastro-esophageal reflux disease without esophagitis; E66.01 Morbid (severe) obesity due to excess calories; F90.9 Attention-deficit hyperactivity disorder, unspecified type; G47.00 Insomnia, unspecified; F41.9 Anxiety disorder, unspecified; F33.9 Major depressive disorder, recurrent, unspecified; M47.816 Spondylosis without myelopathy or radiculopathy, lumbar region; J30.9 Allergic rhinitis, unspecified; R06.83 Snoring; R40.0 Somnolence; Z68.41 Body mass index [BMI] 40.0-44.9, adult | CPT/HCPCS: 99212 ==

== ENCOUNTER → 2024-08-16 10:18 | Outpatient (BNVA) | payer OTHER, SELFPAY | PROVIDERS: PCP Internal Medicine | DX: Z01.89 Encounter for other specified special examinations (principal) | CPT/HCPCS: 99211 ==

== ENCOUNTER 2024-10-20 08:17 | Outpatient (REF) | payer OTHER, SELFPAY ==
[2024-10-20 08:27] LABS: MANUAL DIFF FLAG NO
[2024-10-20 08:47] LABS: Hematocrit 42.5 % (42.0-52.0); Hemoglobin 14.9 g/dl (14.0-18.0); Imm Gran Abs Auto 0.02 X10*3/uL (0.00-0.03); Imm Gran Pct Auto 0.2 % (0.0-0.4); Lymphocytes Absolute Auto 2.2 X10*3/uL (1.2-4.9); Mean Corpuscular HGB Conc 35.1 g/dl (31.0-36.0); Mean Corpuscular Hemoglobin 30.9 pg (27.0-33.0); Mean Corpuscular Volume 88.2 fL (80.0-98.0); NRBC Abs Auto 0.000 X10*3/uL (0.0-0.012); NRBC Pct Auto 0.0 /100WBC (0.0-0.2); Platelet Count 212 X10*3/uL (160-400); Red Blood Count 4.82 X10*6/uL (4.60-5.80); White Blood Count 8.0 X10*3/uL (4.8-10.8)
[2024-10-20 09:23] LABS: Alanine Aminotransferase 32 U/L (0-40); Albumin Level 4.2 g/dL (3.5-5.0); Alkaline Phosphatase 62 U/L (39-117); Anion Gap 12 (12-20); Aspartate Amino Transferase 29 U/L (5-37); Blood Urea Nitrogen 12 mg/dL (9-16); Calcium 9.3 mg/dL (8.4-10.2); Carbon Dioxide 29 mmol/L (22-29); Chloride 106 mmol/L (96-108); Cholesterol 223 mg/dL (<200); Estimated Glomerular Filt Rate > 60; HDL Cholesterol 42 mg/dL (>40); Potassium 4.6 mmol/L (3.3-5.1); Sodium 142 mmol/L (135-145); Total Protein 7.4 g/dL (6.5-8.0); Triglycerides 123 mg/dL (<150)
[2024-10-20 09:28] LABS: Appearance Urine Clear; Glucose Urine UA Negative (Negative); PH 5.0 (5.0-9.0); Specific Gravity - Urine 1.020 (1.005-1.025)
[2024-10-20 09:41] LABS: Free T4 (Free Thyroxine) 0.93 ng/dL (0.71-1.85)
== END 2024-10-20 08:18 | disposition home or self-care (01) ==
LOC: HO.LAB 08:17
PROVIDERS: PCP Internal Medicine
DX: I10 Essential (primary) hypertension (principal); K21.9 Gastro-esophageal reflux disease without esophagitis; E78.00 Pure hypercholesterolemia, unspecified; F33.9 Major depressive disorder, recurrent, unspecified; H81.10 Benign paroxysmal vertigo, unspecified ear; F41.9 Anxiety disorder, unspecified; G47.00 Insomnia, unspecified; E55.9 Vitamin D deficiency, unspecified; E66.9 Obesity, unspecified
CPT/HCPCS: 36415; 80053; 80061; 81003; 82306; 84439; 84443; 85025

== ENCOUNTER 2024-12-12 11:07 | Outpatient (AMB) | payer OTHER, SELFPAY ==
--- NOTE | 2024-12-12 11:10 | MHC.PC.OV ---
Vital Signs 12/12/24 11:11 12/12/24 12:14 Height 5 ft 6 in Weight 257 lb 8 oz BMI 41.6 BP 192/110 H 185/112 H Blood Pressure Location Lt brachial Lt brachial Position Sitting Sitting Respiration 18 Pulse 63 Pulse Source Pulse Oximeter Temp 97.3 F Temp Source Temporal Artery Scan Pulse Oximetry (%) 99 Oxygen Delivery Method Room Air Intake Visit Reasons: htn/hld/insomnia Half Backer Required: No Accompanied by: Self / Same As Patient Allergies No Known Allergies Allergy (Verified 12/12/24 12:01) Medication List - Last Reconciled 12/12/24 by SHANNAN Cerda amlodipine 10 mg PO DAILY aripiprazole 10 mg PO DAILY atorvastatin 40 mg PO DAILY 90 days cholecalciferol (vitamin D3) 50 mcg PO DAILY clonazepam 0.5 mg PO DAILY PRN hydralazine 25 mg PO BID 90 days meclizine 25 mg PO TID PRN paroxetine HCl 40 mg PO DAILY topiramate 50 mg PO BID trazodone 100 mg PO BEDTIME PRN valsartan-hydrochlorothiazide 320-25 mg 1 tab PO DAILY Tobacco use date assessed: 12/12/24 Dental Screening Dental Screen Date: 12/12/24 Did you have a dental visit in the last 12 months?: No Did you have a dental problem in the last 6 months where you did not have access to dental care?: No Was dental information given to patient?: No HPI htn/hld/insomnia HPI Details The patient is a 53-year-old male presenting for a follow-up visit for management of chronic conditions, including hypertension and hyperlipidemia, and review of lab results. The patient has a history of hypertension and checks his blood pressure at home occasionally with a wrist monitor, which shows readings in the 150s-160s. The patient's father has a history of hypertension. Regarding hyperlipidemia, recent lab results show his LDL cholesterol has increased from 133 to 157. He is currently taking atorvastatin for his cholesterol. The patient's diet includes fast food once or twice a week, and he consumes a significant amount of milk and eggs. He reports gaining approximately 5 pounds since his last visit and leads a sedentary lifestyle, stating he has been doing nothing. The patient has a history of anxiety and depression, for which he takes medication, and these conditions contribute to him staying home and being inactive. His vitamin D level is on the lower side, despite taking a supplement, which is attributed to a lack of sun exposure. For chronic back pain, he was prescribed meloxicam but stopped taking it due to side effects of dizziness and vertigo-like symptoms, which previously led to hospital visits. He reports his sleep has been significantly better recently, and he feels rested upon waking. [facility] Medical History Obesity (BMI 30-39.9) Dizziness Depression Anxiety Insomnia Attention deficit hyperactivity disorder (ADHD) Allergic rhinitis Morbid obesity with BMI of 40.0-44.9, adult Elevated TSH GERD without esophagitis Impaired fasting glucose Elevated LFTs Pure hypercholesterolemia Benign essential hypertension Vitamin D deficiency Surgical History No pertinent past surgical history Family History Father Hypertension CVD (cardiovascular disease) Mother Diabetes Brother No problems noted. Other Mental health problem Social History Housing: Apartment Alcohol intake: current Alcohol intake frequency: holidays/special occasions only Patient Tobacco Use Status: Never used Tobacco e-Cigarette/Vaping Use: Never Used Second Hand Smoke Exposure: Yes service: No Current occupational status: disabled Cognitive needs: No Hearing needs: No Vision needs: No Questionnaire PHQ-9 Over the last 2 weeks, how often have you been bothered by any of the following problems? Depression Screening Interpretation: Positive Depression Screening Done: Yes Source: Developed by Drs. Ramón Alcala, Bernadette Bourgeois, Jd Mullins and colleagues, with an educational robel from [employer]. Thrive Questionnaire Date Thrive assessed: 07/19/24 I am a: Patient What is your living situation today?: I have a steady place to live Within the past 12 months, did the food you bought not last and you didn't have the money to get more?: Never true Within the past 12 months, did you worry whether your food would run out before you got money to buy more?: Never true Do you have trouble paying for medicines?: No Do you have trouble getting transportation to medical appointments?: No Do you have trouble paying your heating and electricity bill?: No Do you have trouble taking care of your child, family member or friend?: No Do you have trouble with day-to-day activities such as bathing, preparing meals, shopping, managing finances, etc.?: No Are you currently unemployed and looking for a job?: No Are you interested in more education?: No Please select the resources that you would like help with: None Currently or been in a relationship where the following occur: No concerns reported THRIVE Score: 0 RONIT-7 AMB Questionnaire RONIT-7 Date RONIT - 7 assessed: 07/19/24 (patient states he is being treated for dep/anx) Source: Developed by Drs. Ramón Alcala, Bernadette Bourgeois, Jd Mullins and colleagues, with an educational robel from [employer]. Review of Systems Const Reports daytime sleepiness, Reports fatigue, Denies headache(s) and Reports snoring Eyes Denies loss of vision ENT Denies vertigo, Denies dizziness, Denies headache(s) and Denies sore throat Card Denies chest pain, Denies leg edema and Denies lightheadedness Resp Denies cough, Denies hemoptysis, Reports snoring and Denies wheezing GI Denies abdominal pain, Denies melena, Denies constipation, Denies diarrhea and Denies vomiting Denies dysuria, Denies urinary frequency and Denies urinary urgency Musc Reports back pain (chronic), Denies arthralgias, Denies joint swelling, Denies numbness and Denies tingling Neuro Denies Abnormal speech present, Denies behavioral changes, Denies vertigo, Denies dizziness, Denies headache(s), Denies loss of vision, Denies memory loss, Denies numbness and Denies tingling Psych Reports anxiety (hx control on current treatment), Denies behavioral changes, Reports depression (hx controlled on current treatment), Denies memory loss and Denies panic attacks Endo Reports fatigue Mohit/Lymph Denies easy bleeding and Denies easy bruising Aller/Immun Denies wheezing Physical exam (Primary Care) Vital Signs: Last Vital Signs Temp 97.3 F 12/12/24 11:11 Pulse 63 12/12/24 11:11 Resp 18 12/12/24 11:11 BP 185/112 H 12/12/24 12:14 Pulse Ox 99 12/12/24 11:11 Oxygen Delivery Method Room Air 12/12/24 11:11 BMI result Body Mass Index 41.6 Tobacco/Smoking Status: Tobacco use Status Tobacco use date assessed 12/12/24 12/12/24 11:21 Patient Tobacco Use Status Never used Tobacco 12/12/24 11:11 e-Cigarette/Vaping Use Never Used 12/12/24 11:11 Depression Screening Interpretation: Positive Thrive Assessment: Date of Thrive Assessment Date Thrive assessed 07/19/24 12/12/24 11:11 Currently or been in a relationship where the following occur: No concerns reported Const General: healthy appearing, no acute distress, alert and awake Nutritional Appearance: well nourished Orientation/consciousness: oriented to person, oriented to place and oriented to time HENMT Ears: TM's normal bilaterally General nose exam: Normal nasal mucous membranes and turbinates present Eyes Conjunctivae: conjunctivae normal Sclerae: sclerae normal Pupils: Equal, round and reactive pupils present Neck Neck: Yes no lymphadenopathy and Yes no JVD Thyroid: Thyroid normal Carotids: no bruits Resp Effort & Inspection: normal respiratory effort and not tachypneic Auscultation: no crackles, no rales, no rhonchi and no wheezes Cardio Rate: regular rate Rhythm: regular rhythm Heart sounds: no murmurs and normal S1 and S2 GI Palpation (GI): Soft to palpation, nontender, no hepatomegaly and no splenomegaly Auscultation: normal bowel sounds General: Yes no CVA tenderness Back/Spine/Pelvis Back: no CVA tenderness Thoracic/Lumbar Spine: No lumbar spinal tenderness Skin General skin exam: no rashes or lesions noted and dry skin Neuro General: oriented to person, oriented to place and oriented to time Cranial nerves: Yes Equal, round and reactive pupils present Speech: No Abnormal speech present Gait exam (Neuro): Normal gait present Motor exam (neuro): no tremor noted Extrem Right upper extremity: full ROM Left upper extremity: full ROM Right lower extremity: full ROM; no edema Left lower extremity: full ROM; no edema Psych Mental Status: mental status grossly normal Speech and movement: Normal speech and movement present Affect: normal affect Attitude: cooperative Thought process: Normal thought process present Results Reviewed Results Reviewed: Laboratory Tests 10/20/24 10/20/24 08:26 08:30 WBC 8.0 RBC 4.82 Hgb 14.9 Hct 42.5 MCV 88.2 MCH 30.9 MCHC 35.1 RDW 13.4 Plt Count 212 MPV 10.9 Sodium 142 Potassium 4.6 Chloride 106 Carbon Dioxide 29 Anion Gap 12 BUN 12 Creatinine 1.11 Estimated GFR > 60 Fasting Glucose 88 Calcium 9.3 Total Bilirubin 0.6 AST 29 ALT 32 Alkaline Phosphatase 62 Total Protein 7.4 Albumin 4.2 Triglycerides 123 Cholesterol 223 H LDL Cholesterol, Calc 157 H HDL Cholesterol 42 25-OH Vitamin D Total 23.1 L TSH 7.55 H Free T4 0.93 Urine Color Yellow Urine Appearance Clear Urine pH 5.0 Ur Specific [place] 1.020 Urine Protein Negative Urine Glucose (UA) Negative Urine Ketones Negative Urine Blood Negative Urine Nitrite Negative Ur Leukocyte Esterase Negative Coding Level of Care Code Est Pt Level 4 (66507) Diagnoses Benign essential hypertension I10 Pure hypercholesterolemia E78.00 Vitamin D deficiency E55.9 Elevated LFTs R79.89 GERD without esophagitis K21.9 Elevated TSH R79.89 Morbid obesity with BMI of 40.0-44.9, adult E66.01; Z68.41 Attention deficit hyperactivity disorder (ADHD), unspecified ADHD type F90.9 Attention deficit-hyperactivity disorder type: unspecified Insomnia, unspecified type G47.00 Insomnia type: unspecified Anxiety F41.9 Episode of recurrent major depressive disorder, unspecified depression episode severity F33.9 Depression Type: major depressive disorder Major depression recurrence: recurrent Active/Remission status: currently active Major depression episode severity: unspecified 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 This persistent elevation poses a long-term risk of cardiac strain and heart failure. The plan is to increase the dosage of hydralazine from 25 mg twice daily to 50 mg twice daily, which the patient will achieve by taking two of his current 25 mg tablets per dose. A follow-up appointment for a blood pressure check is scheduled in three weeks to monitor the response to the medication change and avoid prolonged severe hypertension. (2) Pure hypercholesterolemia: Code(s): E78.00 - Pure hypercholesterolemia, unspecified Category: Medical Plan: The patient's LDL cholesterol has worsened, increasing from 133 to 157 mg/dL. This is likely exacerbated by a diet high in cholesterol, recent weight gain, and a sedentary lifestyle. The plan includes counseling on dietary modifications to reduce intake of high-cholesterol foods such as red meat, dairy, and egg yolks. The patient will be provided with a handout detailing foods high in cholesterol. He will continue taking his current atorvastatin medication. (3) Vitamin D deficiency: Code(s): E55.9 - Vitamin D deficiency, unspecified Category: Medical Plan: The patient's vitamin D level is on the lower side, which is likely related to his limited sun exposure from staying indoors. He will continue taking his current vitamin D supplement. (4) Elevated LFTs: Code(s): R79.89 - Other specified abnormal findings of blood chemistry Category: Medical Plan: Again his liver enzymes came back normal We will continue to monitor (5) GERD without esophagitis: Code(s): K21.9 - Gastro-esophageal reflux disease without esophagitis Category: Medical Plan: Do not eat meals or drink carbonated beverages within 3 hr of bedtime Decrease the amount of fried, fatty, and spicy foods to decrease gastric acid production Raise the head of the bed using 4 to 6-inch blocks, especially if nocturnal symptoms are present Lose weight if indicated; avoid tight-fitting clothing, especially around the waist Avoid foods that relax the Lower esophageal sphincter (chocolate, peppermint, high-fat foods etc.,) (6) Elevated TSH: Code(s): R79.89 - Other specified abnormal findings of blood chemistry Category: Medical Plan: TSH 7.55 and free T4 0.93 Continue to be subclinical We will repeat thyroid function tests as in three-month (7) Morbid obesity with BMI of 40.0-44.9, adult: Code(s): E66.01 - Morbid (severe) obesity due to excess calories; Z68.41 - Body mass index [BMI] 40.0-44.9, adult Category: Medical Plan: The patient had a 5 lb weight gain since last seen in office. Encouraged to exercise for at least 30 minutes a day/5 days a week Healthy eating discussed. Encouraged to eat fruits/vegetables, protein-fish/baked chicken, and to avoid salty/fried foods, sweets, caffeine and carbohydrates. Encouraged to increase water intake 6-8 glasses a day (8) Attention deficit hyperactivity disorder (ADHD): Code(s): F90.9 - Attention-deficit hyperactivity disorder, unspecified type Category: Medical Qualifiers: Attention deficit-hyperactivity disorder type: unspecified Qualified Code(s): F90.9 - Attention-deficit hyperactivity disorder, unspecified type Plan: Follow up with Psychiatry as scheduled (9) Insomnia: Code(s): G47.00 - Insomnia, unspecified Category: Medical Qualifiers: Insomnia type: unspecified Qualified Code(s): G47.00 - Insomnia, unspecified Plan: Sleep hygiene: Exercise regularly, but not within 4 hour of bedtime. Limit fluid intake and avoid large meals in the evening hours. Limit overall caffeine, tobacco, and alcohol intake; no night cap. Maintain a regular sleep-wake cycle without naps in the daytime. Lie down to sleep only when feeling sleepy; leave the bed if unable to fall asleep within 20 minutes; stay in bed for only the hours actually sleeping(but not less than 5 hour in 24 hours). Continue trazodone 100 mg at bedtime p.r.n. (10) Anxiety: Code(s): F41.9 - Anxiety disorder, unspecified Category: Medical Plan: Encourage counseling or cognitive behavioral therapy Continue paroxetine 10 mg daily in clonazepam 0.5 mg daily p.r.n. Follow up with Psychiatry as scheduled (11) Depression: Code(s): F32.9 - Major depressive disorder, single episode, unspecified Category: Medical Qualifiers: Depression Type: major depressive disorder Major depression recurrence: recurrent Active/Remission status: currently active Major depression episode severity: unspecified Qualified Code(s): F33.9 - Major depressive disorder, recurrent, unspecified Plan: Encourage counseling or cognitive behavioral therapy Continue aripirazole 10 mg daily, paroxetine HCL 10 mg daily, and clonazepam 0.5 mg daily PRN FOLLOW UP WITH PSYCHIATRY SCHEDULED (12) Arthritis of facet joint of lumbar spine: Code(s): M47.816 - Spondylosis without myelopathy or radiculopathy, lumbar region Category: Medical Plan: Reinforced activity and weight-lifting restrictions Avoid aggravating activities that worsens symptoms Balance activity with rest to allow the spine to heal Apply heat or cold pack to reduce pain and inflammation The patient was on meloxicam 15 mg daily p.r.n. The patient reported discontinuing meloxicam for his back pain due to adverse effects, specifically dizziness and vertigo-like sensations. The discontinuation of this medication is noted, and no alternative treatment for his pain was discussed during this visit. (13) Allergic rhinitis: Code(s): J30.9 - Allergic rhinitis, unspecified Category: Medical Qualifiers: Allergic rhinitis trigger: unspecified Allergic rhinitis seasonality: unspecified Qualified Code(s): J30.9 - Allergic rhinitis, unspecified Plan: Limit exposure to allergens Air purifiers and dust filters Air conditioner in house, especially where sleeping (14) Snores: Code(s): R06.83 - Snoring Category: Medical Plan: Sleep study ordered (15) Daytime sleepiness: Code(s): R40.0 - Somnolence Category: Medical Plan: Same as above (16) Fatigue: Code(s): R53.83 - Other fatigue Category: Medical Qualifiers: Fatigue type: unspecified Qualified Code(s): R53.83 - Other fatigue Plan: Same as above Plan Patient to follow up in 3 months Orders: Orders Comprehensive [place]. Panel Fast 3 Months E66.01 - Morbid (severe) obesity due to excess calories, E66.9 - Obesity, unspecified, E78.00 - Pure hypercholesterolemia, unspecified, F33.9 - Major depressive disorder, recurrent, unspecified, F41.9 - Anxiety disorder, unspecified, F90.9 - Attention-deficit hyperactivity disorder, unspecified type, I10 - Essential (primary) hypertension, I99.8 - Other disorder of circulatory system, K21.9 - Gastro-esophageal reflux disease without esophagitis, Z68.41 - Body mass index [BMI] 40.0-44.9, adult Lipid Panel 3 Months E66.01 - Morbid (severe) obesity due to excess calories, E66.9 - Obesity, unspecified, E78.00 - Pure hypercholesterolemia, unspecified, F33.9 - Major depressive disorder, recurrent, unspecified, F41.9 - Anxiety disorder, unspecified, F90.9 - Attention-deficit hyperactivity disorder, unspecified type, I10 - Essential (primary) hypertension, I99.8 - Other disorder of circulatory system, K21.9 - Gastro-esophageal reflux disease without esophagitis, Z68.41 - Body mass index [BMI] 40.0-44.9, adult TSH reflex Free T4 3 Months E66.01 - Morbid (severe) obesity due to excess calories, E66.9 - Obesity, unspecified, E78.00 - Pure hypercholesterolemia, unspecified, F33.9 - Major depressive disorder, recurrent, unspecified, F41.9 - Anxiety disorder, unspecified, F90.9 - Attention-deficit hyperactivity disorder, unspecified type, I10 - Essential (primary) hypertension, I99.8 - Other disorder of circulatory system, K21.9 - Gastro-esophageal reflux disease without esophagitis, Z68.41 - Body mass index [BMI] 40.0-44.9, adult Complete Blood Count Auto Diff 3 Months E66.01 - Morbid (severe) obesity due to excess calories, E66.9 - Obesity, unspecified, E78.00 - Pure hypercholesterolemia, unspecified, F33.9 - Major depressive disorder, recurrent, unspecified, F41.9 - Anxiety disorder, unspecified, F90.9 - Attention-deficit hyperactivity disorder, unspecified type, I10 - Essential (primary) hypertension, I99.8 - Other disorder of circulatory system, K21.9 - Gastro-esophageal reflux disease without esophagitis, Z68.41 - Body mass index [BMI] 40.0-44.9, adult UA CC w/rflx Micro + Cult 3 Months E66.01 - Morbid (severe) obesity due to excess calories, E66.9 - Obesity, unspecified, E78.00 - Pure hypercholesterolemia, unspecified, F33.9 - Major depressive disorder, recurrent, unspecified, F41.9 - Anxiety disorder, unspecified, F90.9 - Attention-deficit hyperactivity disorder, unspecified type, I10 - Essential (primary) hypertension, I99.8 - Other disorder of circulatory system, K21.9 - Gastro-esophageal reflux disease without esophagitis, Z68.41 - Body mass index [BMI] 40.0-44.9, adult Vitamin D 25-OH Total 3 Months E66.01 - Morbid (severe) obesity due to excess calories, E66.9 - Obesity, unspecified, E78.00 - Pure hypercholesterolemia, unspecified, F33.9 - Major depressive disorder, recurrent, unspecified, F41.9 - Anxiety disorder, unspecified, F90.9 - Attention-deficit hyperactivity disorder, unspecified type, I10 - Essential (primary) hypertension, I99.8 - Other disorder of circulatory system, K21.9 - Gastro-esophageal reflux disease without esophagitis, Z68.41 - Body mass index [BMI] 40.0-44.9, adult Hemoglobin A1c 3 Months R73.01 - Impaired fasting glucose Medications: Changed From hydralazine 25 mg PO BID 90 days 180 tabs 1RF To hydralazine 50 mg (2 x 25 mg) PO BID 360 tabs 2RF 90 days
[2024-12-12 11:11] VITALS: BP 192/110; PULSE 63; RESP 18; TEMP 36.3; O2SAT 99; BMI 41.6
[2024-12-12 12:14] VITALS: BP 185/112
== END 2024-12-12 12:34 | disposition home or self-care (01) ==
LOC: HO.HMCH 11:08
PROVIDERS: PCP Internal Medicine
DX: I10 Essential (primary) hypertension (principal); E78.00 Pure hypercholesterolemia, unspecified; E55.9 Vitamin D deficiency, unspecified; R79.89 Other specified abnormal findings of blood chemistry; K21.9 Gastro-esophageal reflux disease without esophagitis; E66.01 Morbid (severe) obesity due to excess calories; Z68.41 Body mass index [BMI] 40.0-44.9, adult; F90.9 Attention-deficit hyperactivity disorder, unspecified type; G47.00 Insomnia, unspecified; F41.9 Anxiety disorder, unspecified; F33.9 Major depressive disorder, recurrent, unspecified; M47.816 Spondylosis without myelopathy or radiculopathy, lumbar region; J30.9 Allergic rhinitis, unspecified; R06.83 Snoring; R40.0 Somnolence; R53.83 Other fatigue

== ENCOUNTER → 2024-12-12 11:07 | Outpatient (BNVA) | payer OTHER, SELFPAY | PROVIDERS: PCP Internal Medicine | DX: I10 Essential (primary) hypertension (principal); F41.9 Anxiety disorder, unspecified; E78.00 Pure hypercholesterolemia, unspecified; E55.9 Vitamin D deficiency, unspecified; R79.89 Other specified abnormal findings of blood chemistry; K21.9 Gastro-esophageal reflux disease without esophagitis; E66.01 Morbid (severe) obesity due to excess calories; F90.9 Attention-deficit hyperactivity disorder, unspecified type; G47.00 Insomnia, unspecified; F33.9 Major depressive disorder, recurrent, unspecified; M47.816 Spondylosis without myelopathy or radiculopathy, lumbar region; J30.9 Allergic rhinitis, unspecified; R06.83 Snoring; R40.0 Somnolence; Z68.41 Body mass index [BMI] 40.0-44.9, adult | CPT/HCPCS: 99212 ==

== ENCOUNTER 2025-01-09 09:10 | Outpatient (AMB) | payer OTHER, SELFPAY ==
[2025-01-09 09:15] VITALS: BP 188/100; PULSE 71; RESP 18; O2SAT 99; BMI 41.2
--- NOTE | 2025-01-09 09:15 | MHC.PC.OV ---
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 Required: No Accompanied by: Self / Same As Patient Allergies No Known Allergies Allergy (Verified 01/09/25 09:27) Medication List - Last Reconciled 01/09/25 by SHANNAN Cerda amlodipine 10 mg PO DAILY aripiprazole 10 mg PO DAILY atorvastatin 40 mg PO DAILY 90 days cholecalciferol (vitamin D3) 50 mcg PO DAILY clonazepam 0.5 mg PO DAILY PRN hydralazine 50 mg (2 x 25 mg) PO BID 90 days meclizine 25 mg PO TID PRN paroxetine HCl 40 mg PO DAILY topiramate 50 mg PO BID trazodone 100 mg PO BEDTIME PRN valsartan-hydrochlorothiazide 320-25 mg 1 tab PO DAILY Tobacco use date assessed: 01/09/25 Dental Screening Dental Screen Date: 01/09/25 Did you have a dental visit in the last 12 months?: No Did you have a dental problem in the last 6 months where you did not have access to dental care?: No Was dental information given to patient?: No HPI 4 week f/u HPI Details The patient is a 54-year-old male who is presenting for blood pressure follow up Blood pressure continues to be elevated even after his last dose increased Patient reports that he has been compliant with his medication for the most part and once in a while he might miss 1 or 2 doses The patient reports that his home blood pressure readings are still high with systolic in the 170s or higher The patient also was ordered an in-home sleep study, for which he did not show up for the appointment Per patient he does not feel like doing that at this time, for he has a hard time getting out of his house because of his anxiety The patient also declines going to see a segmental wall installer He denies chest pain shortness of breath, heart palpitation or dizziness PFSH Medical History Obesity (BMI 30-39.9) Dizziness Depression Anxiety Insomnia Attention deficit hyperactivity disorder (ADHD) Allergic rhinitis Morbid obesity with BMI of 40.0-44.9, adult Elevated TSH GERD without esophagitis Impaired fasting glucose Elevated LFTs Pure hypercholesterolemia Benign essential hypertension Vitamin D deficiency Surgical History No pertinent past surgical history Family History Father Hypertension CVD (cardiovascular disease) Mother Diabetes Brother No problems noted. Other Mental health problem Social History Housing: Apartment Alcohol intake: current Alcohol intake frequency: holidays/special occasions only Patient Tobacco Use Status: Never used Tobacco e-Cigarette/Vaping Use: Never Used Second Hand Smoke Exposure: Yes service: No Current occupational status: disabled Cognitive needs: No Hearing needs: No Vision needs: No Questionnaire PHQ-9 Over the last 2 weeks, how often have you been bothered by any of the following problems? Depression Screening Interpretation: Positive Depression Screening Done: Yes Source: Developed by Drs. Ramón Alcala, Bernadette Bourgeois, Jd Mullins and colleagues, with an educational robel from [employer]. Thrive Questionnaire Date Thrive assessed: 01/09/25 I am a: Patient What is your living situation today?: I have a steady place to live Within the past 12 months, did the food you bought not last and you didn't have the money to get more?: Never true Within the past 12 months, did you worry whether your food would run out before you got money to buy more?: Never true Do you have trouble paying for medicines?: No Do you have trouble getting transportation to medical appointments?: No Do you have trouble paying your heating and electricity bill?: No Do you have trouble taking care of your child, family member or friend?: No Do you have trouble with day-to-day activities such as bathing, preparing meals, shopping, managing finances, etc.?: No Are you currently unemployed and looking for a job?: No Are you interested in more education?: No Please select the resources that you would like help with: None Currently or been in a relationship where the following occur: No concerns reported THRIVE Score: 0 RONIT-7 AMB Questionnaire RONIT-7 Date RONIT - 7 assessed: 07/19/24 (patient states he is being treated for dep/anx) Source: Developed by Drs. Ramón Alcala, Bernadette Bourgeois, Jd Mullins and colleagues, with an educational robel from [employer]. Review of Systems Narrative Review of Systems - Psychological: Reports significant anxiety and feeling skeptical. - Neurological: Reports a history of medication-induced vertigo and lip numbness, but denies current dizziness. - Constitutional: Reports feeling as though sleep is good, but acknowledges this is subjective. Const Reports daytime sleepiness, Reports fatigue, Denies headache(s) and Reports snoring Eyes Denies loss of vision ENT Denies vertigo, Denies dizziness, Denies headache(s) and Denies sore throat Card Denies chest pain, Denies leg edema and Denies lightheadedness Resp Denies cough, Denies hemoptysis, Reports snoring and Denies wheezing GI Denies abdominal pain, Denies melena, Denies constipation, Denies diarrhea and Denies vomiting Denies dysuria, Denies urinary frequency and Denies urinary urgency Musc Reports back pain (chronic), Denies arthralgias, Denies joint swelling, Denies numbness and Denies tingling Neuro Denies Abnormal speech present, Denies behavioral changes, Denies vertigo, Denies dizziness, Denies headache(s), Denies loss of vision, Denies memory loss, Denies numbness and Denies tingling Psych Reports anxiety (hx control on current treatment), Denies behavioral changes, Reports depression (hx controlled on current treatment), Denies memory loss and Denies panic attacks Endo Reports fatigue Mohit/Lymph Denies easy bleeding and Denies easy bruising Aller/Immun Denies wheezing Physical exam (Primary Care) Vital Signs: Last Vital Signs Pulse 71 01/09/25 09:15 Resp 18 01/09/25 09:15 BP 178/106 H 01/09/25 09:45 Pulse Ox 99 01/09/25 09:15 Oxygen Delivery Method Room Air 01/09/25 09:15 BMI result Body Mass Index 41.2 Tobacco/Smoking Status: Tobacco use Status Tobacco use date assessed 01/09/25 01/09/25 09:20 Patient Tobacco Use Status Never used Tobacco 01/09/25 09:20 e-Cigarette/Vaping Use Never Used 01/09/25 09:20 Depression Screening Interpretation: Positive Thrive Assessment: Date of Thrive Assessment Date Thrive assessed 01/09/25 01/09/25 09:20 Currently or been in a relationship where the following occur: No concerns reported Narrative Physical Exam - Vitals: Blood pressure reading is elevated. - General: An initial oversized blood pressure cuff was replaced with a regular-sized cuff for accuracy. Const General: healthy appearing, no acute distress, alert and awake Nutritional Appearance: well nourished Orientation/consciousness: oriented to person, oriented to place and oriented to time HENMT Ears: TM's normal bilaterally General nose exam: Normal nasal mucous membranes and turbinates present Eyes Conjunctivae: conjunctivae normal Sclerae: sclerae normal Pupils: Equal, round and reactive pupils present Neck Neck: Yes no lymphadenopathy and Yes no JVD Thyroid: Thyroid normal Carotids: no bruits Resp Effort & Inspection: normal respiratory effort and not tachypneic Auscultation: no crackles, no rales, no rhonchi and no wheezes Cardio Rate: regular rate Rhythm: regular rhythm Heart sounds: no murmurs and normal S1 and S2 GI Palpation (GI): Soft to palpation, nontender, no hepatomegaly and no splenomegaly Auscultation: normal bowel sounds General: Yes no CVA tenderness Back/Spine/Pelvis Back: no CVA tenderness Thoracic/Lumbar Spine: No lumbar spinal tenderness Skin General skin exam: no rashes or lesions noted and dry skin Neuro General: oriented to person, oriented to place and oriented to time Cranial nerves: Yes Equal, round and reactive pupils present Speech: No Abnormal speech present Gait exam (Neuro): Normal gait present Motor exam (neuro): no tremor noted Extrem Right upper extremity: full ROM Left upper extremity: full ROM Right lower extremity: full ROM; no edema Left lower extremity: full ROM; no edema Psych Mental Status: mental status grossly normal Speech and movement: Normal speech and movement present Affect: normal affect Attitude: cooperative Thought process: Normal thought process present Coding Level of Care Code Est Pt Level 3 (84052) Diagnoses Benign essential hypertension I10 Anxiety F41.9 Time Spent (min) 33 Assessment & Plan Assessment & Plan (1) Benign essential hypertension: Code(s): I10 - Essential (primary) hypertension Category: Medical (2) Anxiety: Code(s): F41.9 - Anxiety disorder, unspecified Category: Medical Plan Plan Patient was informed and verbally consented to the use of an ambient scribe for clinic note documentation during this visit. 1. Essential Hypertension The patient has resistant hypertension, with elevated blood pressure readings both in the office and at home despite being on multiple medications. The plan includes workup for secondary causes, with the patient is refusing to be seen elsewhere. Patient refused to follow up for sleep study and he is refusing to see Nephrology. For now would increase his hydralazine 50 mg from b.i.d. to t.i.d. and have the patient return in 4 weeks. Reinforced low-salt diet and activity as tolerated. 2. Anxiety The patient reports significant anxiety that impacts daily activities and causes apprehension about medical evaluations. The patient will continue current medications for anxiety. Reassurance was provided regarding the nature of the upcoming specialist visit and diagnostic tests. Encouraged the patient to follow up with his psychiatrist to see if his medications could be adjusted. I recommended adding a new blood pressure medication, to which the patient agreed. I also proposed a referral to a kidney specialist for further evaluation and a home sleep study to rule out sleep apnea, explaining that both can be causes of resistant hypertension. I addressed the patient's concerns and anxiety regarding these tests, clarifying that the nephrology consult is an office visit with specialized lab work and the sleep study can be done at home. The patient declines both offers. We discussed the long-term risks of uncontrolled hypertension, including potential damage to the heart, eyes and kidneys. I also emphasized that one cannot rely on feelings to determine blood pressure levels. Medications: New hydralazine 50 mg PO TID 270 tabs 3RF 90 days Discontinued hydralazine Discontinued Reason: Duplicate 50 mg (2 x 25 mg) PO BID 90 days 360 tabs 2RF
[2025-01-09 09:45] VITALS: BP 178/106
== END 2025-01-09 09:58 | disposition home or self-care (01) ==
LOC: HO.HMCH 09:11
PROVIDERS: PCP Internal Medicine
DX: I10 Essential (primary) hypertension (principal); F41.9 Anxiety disorder, unspecified

== ENCOUNTER → 2025-01-09 09:10 | Outpatient (BNVA) | payer OTHER, SELFPAY | PROVIDERS: PCP Internal Medicine | DX: I10 Essential (primary) hypertension (principal); F41.9 Anxiety disorder, unspecified | CPT/HCPCS: 99212 ==